=== PATIENT | female | born 1975 | race Caucasian/White ===

== ENCOUNTER 2020-12-02 22:44 | Emergency (ER) | payer MEDICAID, SELFPAY ==
[2020-12-02 22:59] VITALS: BP 147/87; PULSE 85; RESP 16; TEMP 36.3; O2SAT 97
--- NOTE | 2020-12-02 23:04 | ED.GENADUL_ITS ---
Discharge Plan Disposition Patient Disposition: HOME Condition: Stable Discharge Details Clinical Impression: Abdominal pain, UTI (urinary tract infection), Ovarian cyst, Acute hypokalemia Primary Care Provider: Lb Zepeda ED Provider: Pia Butler Home Meds and New Rx's Prescriptions: New cephalexin 500 mg capsule 500 mg PO BID Qty: 10 RF: 0 Continued medroxyprogesterone 150 MG/ML suspension 1 ml IM PER PROTOCOL RF: 0 ibuprofen 800 MG tablet 800 mg PO Q8H PRN (Reason: Pain) Qty: 15 RF: 0 Discharge Instructions Instructions: Urinary Tract Infection in Women (ED), Hypokalemia (ED), Abdominal Pain (ED) Additional Instructions: You have a urinary tract infection. Please encourage hydration. Please take the antibiotics as prescribed. Even if symptoms improve, please take the entire course. You have enlarged gallbladder and enhancing tissue of your cervical canal. Outpatient ultrasound has been ordered to further evaluate this. Please call int he morning to schedule, see attached form. This imaging will need to be completed with full bladder, please do not eat any food prior to study. Please avoid fatty foods as this may increase pain again if it was linked to your gallbladder. If you develop fevers/chills, inabillity to stay hdyrated, increased pain or other new/worsening symptoms please seek care urgently once again. Otherwise, I have asked our care managers to help you establish local primary care with follow up in the next week. Referrals: Lb Zepeda [Primary Care Provider] - Discharge Data Discharge Date/Time-TO BE ENTERED AT DEPARTURE: 12/03/20 02:34 Medical Decision Making Patient is a pleasant 44-year-old female presenting today for sudden onset abdominal pain. She reports the pain began approximately 1 hour prior to arrival. The pain initially began the left upper quadrant, she then experienced burning that ran down both sides of the abdomen. Pain is now migrated is maximal in the right lower quadrant. She denies any nausea or vomiting. Normal bowel movement today. Denies any change in urinary habits. No vaginal discharge. Reports that she does receive the Depo-Provera injection. Denies being sexually active recently. Denies any fevers or chills. No previous abdominal surgery. On exam, patient is pale and diaphoretic. She is clutching her abdomen. Hemodynamically stable. She does jump frequently when examining her abdomen but this does seem fairly diffuse with no focal area of tenderness. She indicates the right lower quadrant is maximal area of pain. Differential at this time includes appendicitis, ovarian torsion, ruptured ectopic , ruptured ovarian cyst, diverticulitis versus other. Plan for baseline labs and CT. FAST exam was performed by myself and no free fluid was appreciated. Labs reviewed. Patient does have a white count of 14.2. Potassium 2.9, will begin replenishing this here. No other significant electrolyte abnormalities. Troponin within normal limits. Lipase within normal limits. No abnormalities in LFTs. FINDINGS: Liver: Hepatomegaly. No mass. Gallbladder and bile ducts: Prominent gallbladder distention. Mild pericholecystic fat stranding. No calcified gallstones. Gallbladder wall top-normal in thickness. No biliary ductal dilatation. Pancreas: Normal. No ductal dilation. Spleen: Normal. No splenomegaly. Adrenal glands: Normal. No mass. Kidneys and ureters: Normal. No hydronephrosis. Stomach and bowel: Unremarkable. No obstruction. No mucosal thickening. Appendix: Normal appendix. Intraperitoneal space: No free intraperitoneal gas. Small pelvic ascites. Vasculature: Unremarkable. No abdominal aortic aneurysm. Lymph nodes: Unremarkable. No enlarged lymph nodes. Urinary bladder: Unremarkable as visualized. Reproductive: Retroverted uterus. Soft tissue attenuation distends endocervical canal up to 2 cm. Possible involuting right ovarian cyst measuring 1.2 cm, . Bones/joints: Unremarkable. No acute fracture. Soft tissues: Unremarkable. IMPRESSION: 1. Soft tissue attenuation distends endocervical canal. Further evaluation with transabdominal and transvaginal ultrasound recommended. 2. Possible involuting right ovarian cyst. 3. Prominent, distended gallbladder with pericholecystic fat stranding. Correlate clinically for the presence of acute cholecystitis and need for evaluation with ultrasound. 4. Hepatomegaly. 5. Retroverted uterus. Urinalysis concerning for elevated specific gravity, small amount of blood by nitrite, many bacteria. Discussed the findings with the patient. After the acetaminophen, patient's pain is now down to 1. She is no longer diaphoretic, is resting comfortably. Patient does have some mild discomfort over the right upper quadrant but negative Jerez sign. Patient reports that the pain was maximal in the lower aspect of the abdomen but that she had shooting pains that went down both sides and by enlarge, the pain migrated quickly in about her entire abdomen. Unclear if patient had change in vaginal discharge. She reports that she has been less sexually active than typical and was questioning if this may be causing her increased vaginal discharge. Will preform pelvic exam. Pelvic exam unremarkable. Normal-appearing cervix. No vaginal discharge. No cervical motion tenderness, negative chandelier sign. Patient feeling much improved after IV Tylenol. Patient is requesting discha rge. She remains hemodynamically stable. I am concerned with the findings on CT and would like to obtain an outpatient ultrasound of both her enlarged gallbladder as well as transvaginal ultrasound. She does report that she has had enlargement of her gallbladder historically and has had this evaluated and ultrasound, this was last completed when she . Strict return precautions were discussed. All of her questions and concerns were addressed and she is in agreement with this plan. HPI General Mode of arrival: ambulatory . Date/Time Provider Initiated Documentation: 12/02/20 23:04 . Limitations to Documentation: no limitations . Information obtained by: patient and RN notes reviewed . History of Present Illness 44 year old F presents to the emergency department with the chief complaint of lower abdominal pain, described as severe, with intensity rated at 10. Quality is described as stabbing, and is localized to the abdomen. Patient reports no radiation. Patient started experiencing this hour(s) (1) and it has been constant (has migrated throughout abdomen). No relieving factors improve symptom(s), No exacerbating factors reported . Patient notes denies chest pain, cough, fever/chills, loss of appetite, nausea/vomiting and shortness of breath. Patient did receive the following treatments prior to arrival, NSAID Related Data Home Medications Medication Instructions Recorded Confirmed medroxyprogesterone 1 ml IM PER PROTOCOL 10/18/14 12/04/20 ibuprofen 800 mg PO Q8H PRN #15 tab 03/04/17 12/04/20 cephalexin 500 mg PO BID #10 cap 12/03/20 12/04/20 Previous Rx's Medication Instructions Recorded ibuprofen 800 mg PO Q8H PRN #15 tab 03/04/17 cephalexin 500 mg PO BID #10 cap 12/03/20 Allergies Allergy/AdvReac Type Severity Reaction Status Date / Time apple Allergy Unverified 12/02/20 23:36 diphenhydramine Allergy Unverified 12/02/20 23:03 [From Benadryl] pollen extracts Allergy Unverified 12/02/20 23:03 warfarin sodium Allergy Unverified 12/02/20 23:03 [From Coumadin] General Stated Complaint: Abd Prob BEBA: 3 Review of Systems Constitutional Constitutional: Reports as per HPI, Denies chills, Denies fatigue, Denies fever(s) and Denies headache(s) ENT Ears, Nose, Mouth, and Throat: Denies headache(s) Cardiovascular Cardiovascular: Reports as per HPI, Denies chest pain and Denies dyspnea Respiratory Respiratory: Reports as per HPI, Denies cough and Denies dyspnea Gastrointestinal Gastrointestinal: Reports as per HPI Musculoskeletal Musculoskeletal: Reports as per HPI and Denies back pain Integumentary/Breasts Skin/Breast: Reports as per HPI and Denies rash Neurologic Neurologic: Reports as per HPI and Denies headache(s) Endocrine Endocrine: Denies fatigue PFSH Medical History Asthma Vertigo Social History Smoking/Tobacco Use Status: Current every day Tobacco Type: cigarettes Smoking risk assessment performed?: Yes Alcohol Intake: never Drug use: Never Do you feel safe at home: Yes Do you feel safe in your relationship?: Yes Exam Const General: cooperative, uncomfortable, no acute distress, well developed, diaphoretic (pale and diaphoretic) and ill appearing acutely Nutritional Appearance: well nourished and overweight Orientation: alert and awake HENMT Head: normal to inspection Mouth: moist mucous membranes Resp Effort & Inspection: normal respiratory effort, able to speak in complete sentences and no respiratory distress Auscultation: clear to auscultation bilaterally, no rales, no rhonchi and no wheezes Cardio Rate: regular rate Rhythm: regular rhythm Heart Sounds: S1 normal and S2 normal GI Inspection: normal to inspection, no abdominal wall ecchymosis, no edema and non-distended Palpation: soft, no hepatosplenomegaly, not firm, guarding in the RLQ, no hepatomegaly, no hernias, no masses, no pulsatile masses, not rigid and tender (fairly diffuse pain, worse on LUQ, RLQ LLQ) Percussion: normal to percussion Auscultation: normal bowel sounds Back/Spine/Pelvis Back: no CVA tenderness Skin General skin exam: no rashes or lesions noted Trauma: no lacerations or abrasions Neuro General: patient alert and patient awake Cognition: normal cognition Speech: speech normal Gait: normal gait Extrem General: normal to inspection, capillary refill normal, no pedal edema, no calf tenderness and other (2+ distal pulses) Psych Appearance: grossly normal and well kempt Mental Status: mental status grossly normal Speech and Movement: speech and movement normal Course Vital Signs Vital signs: Vital Signs Temperature 36.3 C L 12/02/20 22:59 Pulse 85 12/02/20 22:59 Respiratory Rate 16 12/02/20 22:59 Blood Pressure 147/87 H 12/02/20 22:59 Pulse Oximetry 97 12/02/20 22:59 Temperature 36.3 C L 12/02/20 22:59 Temperature Source Skin 12/02/20 22:59 Pulse 85 12/02/20 22:59 Respiratory Rate 16 12/02/20 22:59 Blood Pressure 147/87 H 12/02/20 22:59 Pulse Oximetry 97 12/02/20 22:59 Pain Level 10 12/02/20 22:59
--- NOTE | 2020-12-02 23:15 | DI.CT_ITS ---
Exam(s) CT ABDOMEN PELVIS W EXAM: CT ABDOMEN PELVIS W CLINICAL HISTORY: severe RLQ pain TECHNIQUE: Imaging Protocol: Axial computed tomography images with coronal and sagittal reformatted images were created and reviewed CONTRAST MATERIAL: Intravenous: Omnipaque 350 Contrast volume:90 mL Oral: No COMPARISON: No exams were available for comparison FINDINGS: ABDOMEN: Lung Bases: Mild infiltrates in the lung bases. This may represent atelectasis or pneumonia. Please correlate clinically. Liver: Normal density. No measurable mass. The liver measures 22 cm in length. Portal, Superior Mesenteric, and Splenic Veins: Unremarkable. Gallbladder and Biliary Tract: No cholelithiasis. There is gallbladder wall thickening. Mild inflam mation is seen around the gallbladder. There is no biliary ductal dilatation. Pancreas: Normal density, no abnormal calcifications or inflammatory process. Spleen: Normal. Adrenals: No masses seen. Kidneys: Normal size, contour and axis. No radiodense stones or obstructive uropathy. No masses seen. Abdominal Aorta: Abdominal portion non-dilated. [id number] atherosclerosis. Bowel: No obstruction or bowel wall thickening. No evidence of appendicitis. There is a question of mild thickening of the wall of the hepatic flexure adjacent to the inflamed gallbladder. This may be colitis secondary to the gallbladder inflammation. Peritoneal Cavity: No collection or mesenteric inflammatory response. Small amount of free fluid in the pelvis. No free air. Lymph Nodes: Within normal limits. Bones: Within normal limits for the patient's age. Soft Tissues: Unremarkable. PELVIS: Bladder: The urinary bladder is incompletely distended but grossly unremarkable. Reproductive Organs: There is a question of some heterogeneity of the cervix with a 2 cm area of decr eased attenuation centrally. Lymph Nodes: Within normal limits. Bones: Within normal limits for the patient's age. IMPRESSION: 1. Distended gallbladder with gallbladder wall thickening and pericholecystic stranding. This may re flect acute cholecystitis. Gallbladder ultrasound may be considered for further evaluation. 2. Question of an area of decreased attenuation in the central cervix. Pelvic ultrasound should be c onsidered for further evaluation. 3. Hepatomegaly. RADIATION DOSE DELIVERED: 951.36mGy.cm Total DLP DATA REPOSITORY: All CT scans at this facility are submitted to the National Radiology Data Registry (NRDR) Dose Index Registry (DIR) with the [employer] (ACR). RADIATION OPTIMIZATION: All CT scans at this facility use at least one of these dose optimization te chniques: automated exposure control; mA and/or kV adjustment per patient size (includes targeted exa ms where dose is matched to clinical indication); or iterative reconstruction.
[2020-12-02 23:21] LABS: Bilirubin Small (Negative); Blood Small (Negative); Clarity Sl Cloudy (Clear); Glucose Negative (Negative); Ketones Trace mg/dL (Negative); Leukocyte Esterase Negative (Negative); Nitrite Positive (Negative); Specific Gravity >= 1.030 (1.005-1.025)
[2020-12-02 23:26] LABS: Bacteria Many HPF (Negative); C & S Indicated? Yes; Casts Negative LPF (Negative); Crystals Negative HPF (Negative); Epithelial Cells Few HPF (Negative); Mucus Trace (Negative)
[2020-12-02 23:30] LABS: Abs Immature Grans 0.05 10^3/uL (0.0-0.06); Absolute Eosinophil Count 0.11 10^3/uL (0.0-0.7); Absolute Monocyte Count 1.39 10^3/uL (0.1-0.8); Basophils % 0.7; Eosinophils % 0.8; HCT 42.6 % (36.0-46.0); HGB 14.4 g/dL (11.2-15.7); Immature Grans % 0.4; Lymphocytes % 17.6; MCH 31.2 pg (27.0-33.0); MCHC 33.8 % (32.0-36.0); MCV 92.2 fL (80-95); MPV 10.9 fL (8.0-11.0); Monocytes % 9.8; Neutrophils % 70.7; Nucleated RBC 0 %; Platelet Count 395 10^3/uL (130-400); RBC 4.62 10^6/uL (3.93-5.22); RDW 12.9 % (11.7-14.6); RDW-SD 43.6 fL; WBC 14.21 10^3/uL (4.4-10.8)
[2020-12-02 23:34] LABS: Absolute Neutrophil Count 10.05 10^3/uL (1.2-6.7)
[2020-12-02] MEDS: ACETAMINOPHEN 1,000 MG/100 ML BTL 400 MG IVPB (23:34)
[2020-12-02] MEDS: Omnipaque 350 MG/ML 100 ML BTL IJ (23:55)
[2020-12-02 23:56] LABS: ALT 23 U/L (14-59); AST 18 U/L (15-37); Albumin 2.8 g/dL (3.4-5.0); Alkaline Phosphatase 115 U/L (46-116); Anion Gap 9.7 mmol/L (3-11); BUN 10 mg/dL (7-18); Bilirubin, Total 0.4 mg/dL (0.2-1.0); CO2 29.3 mmol/L (21.0-32.0); Calcium 9.3 mg/dL (8.5-10.1); Chloride 102 mmol/L (98-107); Glucose 136 mg/dL (74-106); Lipase 39 U/L (73-393); Magnesium 2.1 mg/dL (1.8-2.4); Sodium 141 mmol/L (136-145); Total Protein 8.2 g/dL (6.4-8.2)
[2020-12-02 23:58] LABS: Potassium 2.9 mmol/L (3.5-5.1); Troponin I < 0.05 ng/mL (<0.06)
[2020-12-03] MEDS: Normal Saline - Diluent 50 ML VIAL IV (00:01)
[2020-12-03] MEDS: Normal Saline Flush 10 ML SYR IVP (00:02)
[2020-12-03] MEDS: Lactated Ringers 1,000 ML 1000 ML IV (00:03)
[2020-12-03 00:41] VITALS: BP 113/55; PULSE 84; RESP 16; O2SAT 96
--- NOTE | 2020-12-03 00:54 | DI.VRAD_ITS ---
PROCEDURE INFORMATION: Exam: CT Abdomen And Pelvis With Contrast Exam date and time: 12/02/2020 12:04 AM Age: 44 years old Clinical indication: Localized; Right; Patient HX: Upper abdominal pain moving down into rlq, severe rlq pain TECHNIQUE: Imaging protocol: Computed tomography of the abdomen and pelvis with contrast. Radiation optimization: All CT scans at this facility use at least one of these dose optimization techniques: automated exposure control; mA and/or kV adjustment per patient size (includes targeted exams where dose is matched to clinical indication); or iterative reconstruction. Contrast material: OMNIPAQUE 350; Contrast volume: 90 ml; Contrast route: INTRAVENOUS (IV); COMPARISON: No relevant prior studies available. FINDINGS: Liver: Hepatomegaly. No mass. Gallbladder and bile ducts: Prominent gallbladder distention. Mild pericholecystic fat stranding. No calcified gallstones. Gallbladder wall top-normal in thickness. No biliary ductal dilatation. Pancreas: Normal. No ductal dilation. Spleen: Normal. No splenomegaly. Adrenal glands: Normal. No mass. Kidneys and ureters: Normal. No hydronephrosis. Stomach and bowel: Unremarkable. No obstruction. No mucosal thickening. Appendix: Normal appendix. Intraperitoneal space: No free intraperitoneal gas. Small pelvic ascites. Vasculature: Unremarkable. No abdominal aortic aneurysm. Lymph nodes: Unremarkable. No enlarged lymph nodes. Urinary bladder: Unremarkable as visualized. Reproductive: Retroverted uterus. Soft tissue attenuation distends endocervical canal up to 2 cm. Possible involuting right ovarian cyst measuring 1.2 cm, . Bones/joints: Unremarkable. No acute fracture. Soft tissues: Unremarkable. IMPRESSION: 1. Soft tissue attenuation distends endocervical canal. Further evaluation with transabdominal and transvaginal ultrasound recommended. 2. Possible involuting right ovarian cyst. 3. Prominent, distended gallbladder with pericholecystic fat stranding. Correlate clinically for the presence of acute cholecystitis and need for evaluation with ultrasound. 4. Hepatomegaly. 5. Retroverted uterus. Dictated and Authenticated by: Hernandez Zarate MD. Ordering:KENIA Palacio MD
[2020-12-03] MEDS: Potassium Chloride 20 MEQ TABCR 40 MEQ PO (01:00)
[2020-12-03] MEDS: POTASSIUM CHLORIDE 20 MEQ/100 ML BAG 50 MEQ IVPB (01:00)
[2020-12-03 02:23] VITALS: BP 145/68; PULSE 84; RESP 16; O2SAT 99
[2020-12-03] MEDS: Cephalexin 500 MG CAP 1000 MG PO (02:23)
--- NOTE | 2020-12-03 02:30 | NUR.NOTE ---
Referral to Care Management to establish primary care within a week for abd pain, abnormal ct scan.Nursing Note:
== END 2020-12-03 02:34 | disposition home or self-care (01) ==
PROVIDERS: Emergency Provider Physician Assistant; PCP Internal Medicine
DX: N39.0 Urinary tract infection, site not specified (principal); B96.1 Klebsiella pneumoniae [K. pneumoniae] as the cause of diseases classified elsewhere; R10.31 Right lower quadrant pain; E87.6 Hypokalemia; N83.201 Unspecified ovarian cyst, right side; R93.2 Abnormal findings on diagnostic imaging of liver and biliary tract; R93.5 Abnormal findings on diagnostic imaging of other abdominal regions, including retroperitoneum
CPT/HCPCS: 36415; 80053; 81025; 83690; 87077; 96361; 96365; 96367; 99285; 74177; 81003; 81015; 83735; 84484; 85025; 87086; 87186; 99284; J0131; J3480; J3490

== ENCOUNTER 2020-12-04 01:14 | Outpatient (CLI) | payer MEDICAID, SELFPAY ==
--- NOTE | 2020-12-04 | DI.US_ITS ---
Exam(s) US ABD PELV TRANSVAG NON-OB EXAM: US ABD PELV TRANSVAG NON-OB CLINICAL HISTORY: ENLARGED GB, STRANDING; SOFT TISS ATTENUATION MID ENDOCERVICAL CANAL TECHNIQUE: Ultrasound of the abdomen and pelvic was performed using standard protocol. A limited a bdominal ultrasound was performed. COMPARISON: The examination was read in conjunction with the CT scan of the abdomen and pelvis perfo rmed the same day. FINDINGS: LIVER: The liver measures 19 cm long. There is hepatopetal flow through the portal vein. GALLBLADDER: Cholelithiasis. There is no gallbladder wall thickening. The gallbladder measures 5 cm in diameter. No pericholecystic fluid identified. Right kidney: Normal in size. No evidence of renal calculi. No evidence of hydronephrosis. No renal mass or cyst identified. BILIARY SYSTEM: Common bile duct measures < 7 mm. No intrahepatic biliary ductal dilation. PANCREAS: Normal where visualized. UTERUS: Position: Anteverted. Size: 5.5 long by 2.5 AP by 4.1 transverse cm Endometrium: 0.3 cm. Normal for patient's menstrual status. Myometrium: Unremarkable. Cervix: Unremarkable. OVARIES: Right: Not visualized on this examination. Left: 1.5 x 1.3 cm Cyst or mass: Small follicular cysts are present. DOPPLER: Color: Symmetric and uniform flow to the left ovary. No hyperemia. Duplex: Normal left ovarian arterial waveform is visualized. CUL-DE-SAC: Free fluid: There is complex fluid seen in both adnexa consistent with the complex fluid seen on the CT scan of the abdomen and pelvis. The CT scan showed pneumoperitoneum with a small to moderate amou nt of abdominal pelvic free fluid consistent with a perforated viscus. There appears to be a defect in the wall of the lesser curvature of the stomach on the CT scan examination from 12/04/2020. IMPRESSION: 1. Please refer to the CT scan of the abdomen and pelvis performed the same day for complete details. 2. Normal-appearing uterus with endometrial stripe within normal limits. 3. Nonvisualization of the right ovary. Unremarkable left ovary. 4. Cholelithiasis. 5. Results of this exam have been verbally communicated with provider. DATA REPOSITORY:
== END 2020-12-04 01:34 ==
PROVIDERS: PCP Internal Medicine; Visit Provider Physician Assistant
DX: K80.20 Calculus of gallbladder without cholecystitis without obstruction (principal); R93.5 Abnormal findings on diagnostic imaging of other abdominal regions, including retroperitoneum; R19.8 Other specified symptoms and signs involving the digestive system and abdomen
CPT/HCPCS: 76700; 76830; 76856

== ENCOUNTER 2020-12-04 09:56 | Inpatient (IN) | payer MEDICAID, SELFPAY ==
[2020-12-04] VITALS (82 sets, daily range): BP systolic 136–180; BP diastolic 65–132; PULSE 87–120; RESP 15–43; TEMP 36.3–37.1; O2SAT 92–98; BMI 26.6
--- NOTE | 2020-12-04 10:30 | DI.CT_ITS ---
Exam(s) CT ABDOMEN PELVIS W EXAM: CT ABDOMEN PELVIS W CLINICAL HISTORY: Abd pain, Eval gallbladder and ovarian cyst TECHNIQUE: Imaging Protocol: Axial computed tomography images with coronal and sagittal reformatted images were created and reviewed CONTRAST MATERIAL: Intravenous: Omnipaque 350 Contrast volume:100 mL Oral: Yes COMPARISON: CT CT ABDOMEN PELVIS W from 12/02/2020 FINDINGS: ABDOMEN: Lung Bases: Bilateral basilar infiltrates are seen. There may be a small left pleural effusion. Liver: Normal density. No measurable mass. Portal, Superior Mesenteric, and Splenic Veins: Unremarkable. Gallbladder and Biliary Tract: Gallbladder is distended no stones are seen on the CT examination. Th ere is no biliary ductal dilatation. Please refer to the ultrasound performed the same day. Pancreas: Normal density, no abnormal calcifications or inflammatory process. Spleen: Normal. Adrenals: No masses seen. Kidneys: Normal size, contour and axis. No radiodense stones or obstructive uropathy. No masses seen. Abdominal Aorta: Abdominal portion non-dilated. Mild to moderate atherosclerosis. Bowel: No evidence of bowel obstruction. There does appear to be mild thickening of the wall of loop s of small bowel in the pelvis. No evidence of appendicitis. Peritoneal Cavity: There is free air within the abdomen. Findings are most suspicious for perforated viscus. There is a moderate amount of free fluid in the upper abdomen and pelvis. The fluid in the pelvis has Hounsfield units of 6. Fluid in the upper abdomen has a higher Hounsfield unit. The flu id adjacent to the left lobe of the liver is isodense to the oral contrast. This may represent passa ge of the oral contrast and through the perforated viscus. Due to its location gastric perforation ( example: Ulcer) should be considered. Lymph Nodes: Within normal limits. Bones: Within normal limits for the patient's age. Soft Tissues: Unremarkable. PELVIS: Bladder: Symmetric distention, no gross wall thickening. Reproductive Organs: Unremarkable as visualized. Lymph Nodes: Within normal limits. Bones: Within normal limits for the patient's age. IMPRESSION: 1. Development of pneumoperitoneum suggestive of a perforated viscus. Primary concern is for gastric perforation which can happen occur from an ulcer. There does appear to be a defect in the lesser cu rvature of the stomach with associated thickening of the wall. The finding would be consistent with a perforated ulcer. Neoplasm cannot be excluded. 2. Small to moderate amount of abdominal pelvic free fluid. The fluid is of higher density in the up per abdomen particularly adjacent to the stomach and may reflect the oral contrast's passage through the gastric wall defect. 3. Gallbladder distension with mild stranding around the gallbladder. This may represent acute tracy cystitis. 4. Mild apparent wall thickening in loops of small bowel in the pelvis. This may represent enteritis . This may be secondary to the gastric perforation. 5. Bilateral basilar infiltrates and question of a small left pleural effusion. 6. Results of this exam have been verbally communicated with provider. RADIATION DOSE DELIVERED: 894.13mGy.cm Total DLP DATA REPOSITORY: All CT scans at this facility are submitted to the National Radiology Data Registry (NRDR) Dose Index Registry (DIR) with the [employer] (ACR). RADIATION OPTIMIZATION: All CT scans at this facility use at least one of these dose optimization te chniques: automated exposure control; mA and/or kV adjustment per patient size (includes targeted exa ms where dose is matched to clinical indication); or iterative reconstruction.
--- NOTE | 2020-12-04 10:30 | ED.GENADUL_ITS ---
Discharge Plan Disposition Patient Disposition: [facility] INPATIENT Condition: Serious Discharge Details Clinical Impression: Perforated abdominal viscus, Acute abdomen Primary Care Provider: Lb Zepeda ED Provider: Stefany Duenas Home Meds and New Rx's Prescriptions: No Action medroxyprogesterone 150 MG/ML suspension 1 ml IM PER PROTOCOL RF: 0 ibuprofen 800 MG tablet 800 mg PO Q8H PRN (Reason: Pain) Qty: 15 RF: 0 cephalexin 500 mg capsule 500 mg PO BID Qty: 10 RF: 0 Medical Decision Making 44-year-old female presents to the ER for ultrasound results. Patient was seen here approximately 48 hours ago had a [address] abdomen pelvis which showed prominent distended gallbladder with pericholecystic fat stranding questionable for cholecystitis. She was also diagnosed with a urinary tract infection at that time. Patient was placed on cephalexin which she reports she has been taking. She was sent here to further evaluate the gallbladder for the ultrasound. She did have the ultrasound this morning that radiology is recommending CT once again with oral and IV contrast. Patient states that she has had right upper quadrant abdominal pain x1 week which is intermittent. She has not had a bowel movement in the last 5 days. She denies any vomiting. She is mildly tachycardic at 108-117 upon arrival. Call received by my colleague Dr. Atkins from radiologist regarding ultrasound. Radiologist at this time does recommend repeat CT with oral and IV contrast. Patient here for ultrasound result was seen here yesterday. 1235: Radiologist Dr. Moffett here in the department speak with me regarding patient CT result that she does have some free air noted in the anterior abdominal cavity, some fluid around her spleen questionable perforation of the stomach versus from somewhere else, Call made to Dr. Grijalva who is on-call for general surgery discussed patient case and details he was able to personally view the CT. He does agree to come evaluate patient in the department. Exam(s) CT ABDOMEN PELVIS W EXAM: CT ABDOMEN PELVIS W CLINICAL HISTORY: Abd pain, Eval gallbladder and ovarian cyst TECHNIQUE: Imaging Protocol: Axial computed tomography images with coronal and sagittal reformatted images were created and reviewed CONTRAST MATERIAL: Intravenous: Omnipaque 350 Contrast volume:100 mL Oral: Yes COMPARISON: CT CT ABDOMEN PELVIS W from 12/02/2020 FINDINGS: ABDOMEN: Lung Bases: Bilateral basilar infiltrates are seen. There may be a small left pleural effusion. Liver: Normal density. No measurable mass. Portal, Superior Mesenteric, and Splenic Veins: Unremarkable. Gallbladder and Biliary Tract: Gallbladder is distended no stones are seen on the CT examination. There is no biliary ductal dilatation. Please refer to the ultrasound performed the same day. Pancreas: Normal density, no abnormal calcifications or inflammatory process. Spleen: Normal. Adrenals: No masses seen. Kidneys: Normal size, contour and axis. No radiodense stones or obstructive uropathy. No masses seen. Abdominal Aorta: Abdominal portion non-dilated. Mild to moderate atherosclerosis. Bowel: No evidence of bowel obstruction. There does appear to be mild thickening of the wall of loops of small bowel in the pelvis. No evidence of appendicitis. Peritoneal Cavity: There is free air within the abdomen. Findings are most suspicious for perforated viscus. There is a moderate amount of free fluid in the upper abdomen and pelvis. The fluid in the pelvis has Hounsfield units of 6. Fluid in the upper abdomen has a higher Hounsfield unit. The fluid adjacent to the left lobe of the liver is isodense to the oral contrast. This may represent passage of the oral contrast and through the perforated viscus. Due to its location gastric perforation (example: Ulcer) should be considered. Lymph Nodes: Within normal limits. Bones: Within normal limits for the patient's age. Soft Tissues: Unremarkable. PELVIS: Bladder: Symmetric distention, no gross wall thickening. Reproductive Organs: Unremarkable as visualized. Lymph Nodes: Within normal limits. Bones: Within normal limits for the patient's age. IMPRESSION: 1. Development of pneumoperitoneum suggestive of a perforated viscus. Primary concern is for gastric perforation which can happen occur from an ulcer. There does appear to be a defect in the lesser curvature of the stomach with associated thickening of the wall. The finding would be consistent with a perforated ulcer. Neoplasm cannot be excluded. 2. Small to moderate amount of abdominal pelvic free fluid. The fluid is of higher density in the upper abdomen particularly adjacent to the stomach and may reflect the oral contrast's passage through the gastric wall defect. 3. Gallbladder distension with mild stranding around the gallbladder. This may represent acute cholecystitis. 4. Mild apparent wall thickening in loops of small bowel in the pelvis. This may represent enteritis. This may be secondary to the gastric perforation. 5. Bilateral basilar infiltrates and question of a small left pleural effusion. 6. Results of this exam have been verbally communicated with provider. Spoke again with Dr. Grijalva who agrees to take patient to the OR for emergent diagnostic abdominal laparotomy possible open he does recommend Zosyn and additional antibiotic to cover for fungal, Zosyn order 4.5 g IV piggyback ordered. Dr. Grijalva general surgery here at bedside for patient evaluation. Plan to send patient to the OR. Anesthesia here at BS for patient evaluation. HPI General Mode of arrival: wheelchair . Date/Time Provider Initiated Documentation: 12/04/20 09:58 . Limitations to Documentation: no limitations . Information obtained by: patient . HPI Narrative: 44-year-old female presents to the ER for ultrasound results. Patient was seen here approximately [address] abdomen pelvis which showed prominent distended gallbladder with pericholecystic fat stranding questionable for cholecystitis. She was also diagnosed with a urinary tract infection at that time. Patient was placed on cephalexin which she reports she has been taking. She was sent here to further evaluate the gallbladder for the ultrasound. She did have the ultrasound this morning that radiology is recommending CT once again with oral and IV contrast. Patient states that she has had right upper quadrant abdominal pain x1 week whi ch is intermittent. She has not had a bowel movement in the last 5 days. She denies any vomiting. She is mildly tachycardic at 108-117 upon arrival. Related Data Home Medications Medication Instructions Recorded Confirmed medroxyprogesterone 1 ml IM PER PROTOCOL 10/18/14 12/04/20 ibuprofen 800 mg PO Q8H PRN #15 tab 03/04/17 12/04/20 cephalexin 500 mg PO BID #10 cap 12/03/20 12/04/20 Previous Rx's Medication Instructions Recorded ibuprofen 800 mg PO Q8H PRN #15 tab 03/04/17 cephalexin 500 mg PO BID #10 cap 12/03/20 Allergies Allergy/AdvReac Type Severity Reaction Status Date / Time apple Allergy Unverified 12/02/20 23:36 diphenhydramine Allergy Unverified 12/02/20 23:03 [From Benadryl] pollen extracts Allergy Unverified 12/02/20 23:03 warfarin sodium Allergy Unverified 12/02/20 23:03 [From Coumadin] General Stated Complaint: Recheck BEBA: 5 Review of Systems All systems reviewed & are unremarkable except as noted in HPI and below Gastrointestinal Gastrointestinal: Reports abdominal pain, Reports bloating, Reports change in bowel habits, Reports constipation, Denies diarrhea, Denies nausea and Denies vomiting [facility] Medical History Asthma Vertigo Social History Smoking/Tobacco Use Status: Current every day Tobacco Type: cigarettes Smoking risk assessment performed?: Yes Alcohol Intake: never Drug use: Never Do you feel safe at home: Yes Do you feel safe in your relationship?: Yes Exam Narrative Exam Narrative: Constitutional: Alert and oriented x3. Appears stated age. Normal body habitus. Head: Normocephalic, no trauma. Eyes: Pupils PERRLA, Red reflex noted, EOM's intact. Eyelids symmetrical without lesions, discharge, or swelling. ENT: Bilateral TM's WNL, External ear normal to inspection, no mastoid TTP, swelling, or erythema, Nasal turbinates WNL, no nasal discharge. Normal dentition, Posterior pharynx WNL, no exudate. Chest: Tachycardic, Normal S1, S2, distal pulses intact. Resp: Lungs clear to auscultation bilaterally, no wheezes, rales, or rhonchi. Abdomen: Mildly distended, right upper quadrant tenderness with palpation. Musculoskeletal: Normal gait, 5/5 strength to all four extremities. Skin: No suspicious rashes or lesions. Capillary refill less than 2 sec. pale Neurologic: Cranial nerves II-XII intact. Alert and oriented x 3. DTR's intact. Hematologic/Lymphatic: No ecchymosis, no lymphadenopathy. Course Vital Signs Vital signs: Vital Signs Temperature 37.1 C 12/04/20 10:13 Pulse 108 H 12/04/20 10:13 Respiratory Rate 15 12/04/20 10:13 Blood Pressure 136/75 12/04/20 10:13 Pulse Oximetry 98 12/04/20 10:13 Temperature 37.1 C 12/04/20 10:13 Temperature Source Temporal Artery Scan 12/04/20 10:13 Pulse 108 H 12/04/20 10:13 Respiratory Rate 15 12/04/20 10:13 Respiratory Effort 12/04/20 10:15 Blood Pressure 136/75 12/04/20 10:13 Blood Pressure Position Sitting 12/04/20 10:13 Pulse Oximetry 98 12/04/20 10:13 Oxygen Delivery Method Room Air 12/04/20 10:13 Oxygen Flow Rate 0 12/04/20 10:13
[2020-12-04 10:48] LABS: Abs Immature Grans 0.15 10^3/uL (0.0-0.06); HCT 47.6 % (36.0-46.0); HGB 15.9 g/dL (11.2-15.7); MCHC 33.4 % (32.0-36.0); MCV 92.8 fL (80-95); MPV 11.3 fL (8.0-11.0); Platelet Count 431 10^3/uL (130-400); RBC 5.13 10^6/uL (3.93-5.22); RDW 13.2 % (11.7-14.6); WBC 21.46 10^3/uL (4.4-10.8)
[2020-12-04 10:55] LABS: Lactate 3.1 mmol/L (0.6-1.4)
[2020-12-04 11:08] LABS: ALT 26 U/L (14-59); AST 25 U/L (15-37); Absolute Lymphocyte Count 0.64 10^3/uL (1.2-3.4); Absolute Monocyte Count 0.86 10^3/uL (0.1-0.8); Absolute Neutrophil Count 19.96 10^3/uL (1.2-6.7); Albumin 2.4 g/dL (3.4-5.0); Alkaline Phosphatase 104 U/L (46-116); Anion Gap 12.8 mmol/L (3-11); BUN 22 mg/dL (7-18); Bands % 27; Bilirubin, Total 0.5 mg/dL (0.2-1.0); CO2 25.2 mmol/L (21.0-32.0); CREATININE 1.5 mg/dL (0.55-1.02); Calcium 11.2 mg/dL (8.5-10.1); Chloride 99 mmol/L (98-107); Diff Comment Manual Differential; Estimated GFR 37.72 (mL/min/1.73m2); Glucose 144 mg/dL (74-106); Potassium 4.2 mmol/L (3.5-5.1); Sodium 137 mmol/L (136-145); Total Protein 8.2 g/dL (6.4-8.2)
[2020-12-04 11:09] LABS: RBC Morphology Normal
[2020-12-04 11:39] LABS: Lipase 40 U/L (73-393)
[2020-12-04 11:39] LABS: Bilirubin Moderate (Negative); Blood Trace-lysed (Negative); Clarity Clear (Clear); Glucose Negative (Negative); Ketones Negative (Negative); Leukocyte Esterase Negative (Negative); Nitrite Negative (Negative); Specific Gravity >= 1.030 (1.005-1.025); Urobilinogen 0.2 EU/dL (Up TO 0.2); pH 5.5 (5-8)
[2020-12-04] MEDS: Normal Saline 1,000 ML 1000 ML IV ×2 (11:41→12:42)
[2020-12-04 11:45] LABS: Epithelial Cells Moderate HPF (Negative); RBC 0-2 HPF (0-2); WBC 0-2 HPF (0-5)
[2020-12-04 11:46] LABS: Bacteria Negative HPF (Negative); C & S Indicated? No; Crystals Few Amorphous HPF (Negative); Mucus Moderate (Negative)
[2020-12-04] MEDS: Omnipaque 350 MG/ML 100 ML BTL IV (12:14)
[2020-12-04] MEDS: Normal Saline - Diluent 50 ML VIAL IV (12:14)
[2020-12-04 13:32] LABS: Source Nasal/Nares
--- NOTE | 2020-12-04 13:35 | W.ANESPRE ---
General Info Date of Service Date Performed: 12/04/20 Height: 5 ft 9 in Weight: 81.647 kg Body Mass Index (BMI): 26.6 Surgical Procedure: Operation Date: 12/04/20 13:50 Proposed Procedures Side Surgeon p Exploratory Laparoscopy Flakito Grijalva DO s Exploratory Laparotomy Flakito Grijalva DO Meds Allergies and Home Medications Allergies Allergy/AdvReac Type Severity Reaction Status Date / Time apple Allergy Unverified 12/02/20 23:36 diphenhydramine Allergy Unverified 12/02/20 23:03 [From Benadryl] pollen extracts Allergy Unverified 12/02/20 23:03 warfarin sodium Allergy Unverified 12/02/20 23:03 [From Coumadin] Home Medication Medication Instructions Recorded medroxyprogesterone 1 ml IM PER PROTOCOL 10/18/14 ibuprofen 800 mg PO Q8H PRN #15 tab 03/04/17 cephalexin 500 mg PO BID #10 cap 12/03/20 Current Visit Medications: Current Medications Generic Name Dose Route Start Last Admin Trade Name Freq PRN Reason Stop Dose Admin Sodium Chloride 500 mls @ 0 mls/hr 12/04/20 10:32 Saline 500ml Bag IV PRN PRN As Directed Sodium Chloride 1,000 mls @ 1,000 mls/hr 12/04/20 12:37 12/04/20 12:42 Saline 1000ml Bag IV 12/04/20 13:36 1,000 mls/hr BOLUS ONE Administration Piperacillin Sod/Tazobactam 100 mls @ 200 mls/hr 12/04/20 13:08 Sod 4.5 gm/ Sodium Chloride IVPB 12/04/20 13:37 NOW ONE Protocol Metronidazole 500 mg in 100 mls @ 100 mls/hr 12/04/20 13:09 Flagyl IVPB 12/04/20 14:08 NOW ONE IV Miscellaneous Supplies 1 each 12/04/20 10:45 Iv Access IV DIRECTED AKHIL Iohexol 100 ml 12/04/20 12:15 12/04/20 12:14 Omnipaque 350 Mg/Ml 100 Ml Btl IV 01/03/21 23:59 100 ml DIRECTED AKHIL Administration Sodium Chloride 0 ml 12/04/20 10:32 Normal Saline Flush 10 Ml Syr IVP PRN PRN Sodium Chloride 50 ml 12/04/20 12:15 12/04/20 12:14 Normal Saline - Diluent 50 Ml Vial IV 50 ml .FOR DI USE AKHIL Administration PFSH Active Problems Active Problems: Problem Status Onset Code Abdominal pain R10.9 UTI (urinary tract infection) N39.0 Ovarian cyst N83.209 Acute hypokalemia E87.6 Perforated abdominal viscus R19.8 Acute abdomen R10.0 Medical History Medical History Asthma Vertigo Tobacco Smoking/Tobacco Use Status: Current every day Tobacco Type: cigarettes Alcohol Alcohol Intake: never Substance Use Substance use: Never Vital Signs and Lab Results Vital Signs Most Recent Vital Signs in EMR: Most Recent Vital Signs Temp Pulse Resp BP Pulse Ox 36.8 C 113 H 26 H 164/87 H 95 12/04/20 12:02 12/04/20 12:40 12/04/20 12:50 12/04/20 12:40 12/04/20 12:50 Lab Results Result Diagrams: 12/04/20 10:40 12/04/20 10:40 Blood Type / Crossmatch: No Data to Display Complete Blood Count: White Blood Count 21.46 10^3/uL (4.4-10.8) H 12/04/20 10:40 12/04/20 Red Blood Count 5.13 10^6/uL (3.93-5.22) 12/04/20 10:40 12/04/20 Hemoglobin 15.9 g/dL (11.2-15.7) H 12/04/20 10:40 12/04/20 Hematocrit 47.6 % (36.0-46.0) H 12/04/20 10:40 12/04/20 Platelet Count 431 10^3/uL (130-400) H 12/04/20 10:40 12/04/20 Complete Metabolic Panel: Sodium Level 137 mmol/L (136-145) 12/04/20 10:40 12/04/20 Potassium Level 4.2 mmol/L (3.5-5.1) 12/04/20 10:40 12/04/20 Chloride Level 99 mmol/L (98-107) 12/04/20 10:40 12/04/20 Carbon Dioxide Level 25.2 mmol/L (21.0-32.0) 12/04/20 10:40 12/04/20 Blood Urea Nitrogen 22 mg/dL (7-18) H 12/04/20 10:40 12/04/20 Creatinine 1.5 mg/dL (0.55-1.02) H 12/04/20 10:40 12/04/20 Magnesium Level 2.0 mg/dL (1.8-2.4) 12/04/20 10:40 12/04/20 Calcium Level 11.2 mg/dL (8.5-10.1) H 12/04/20 10:40 12/04/20 Albumin 2.4 g/dL (3.4-5.0) L 12/04/20 10:40 12/04/20 Glucose Level 144 mg/dL (74-106) H 12/04/20 10:40 12/04/20 Liver Function Panel: Alanine Aminotransferase (ALT/SGPT) 26 U/L (14-59) 12/04/20 10:40 12/04/20 Aspartate Amino Transf (AST/SGOT) 25 U/L (15-37) 12/04/20 10:40 12/04/20 Coagulation Panel: No Data to Display Cardiac Panel: Troponin I < 0.05 ng/mL (<0.06) 12/02/20 23:25 12/02/20 Arterial Blood Gas: No Data to Display Venous Blood Gas: Venous Blood Lactate 3.1 mmol/L (0.6-1.4) H* 12/04/20 10:40 12/04/20 Pancreas Panel: Lipase 40 U/L (73-393) 12/04/20 10:40 12/04/20 Thyroid Panel: No Data to Display Infectious Disease: Coronavirus (COVID-19)(PCR) Negative (Negative) 12/04/20 13:27 12/04/20 Coronavirus 2019 Source Nasal/nares 12/04/20 13:27 12/04/20 Blood Cultures: No Data to Display Toxicology Panel: No Data to Display Panel: Urine HCG, Qualitative Negative 12/04/20 11:35 12/04/20 Imaging and Studies Imaging and Studies CT Summary: 12/04/2020 IMPRESSION: 1. Development of pneumoperitoneum suggestive of a perforated viscus. Primary concern is for gastric perforation which can happen occur from an ulcer. There does appear to be a defect in the lesser curvature of the stomach with associated thickening of the wall. The finding would be consistent with a perforated ulcer. Neoplasm cannot be excluded. 2. Small to moderate amount of abdominal pelvic free fluid. The fluid is of higher density in the upper abdomen particularly adjacent to the stomach and may reflect the oral contrast's passage through the gastric wall defect. 3. Gallbladder distension with mild stranding around the gallbladder. This may represent acute cholecystitis. 4. Mild apparent wall thickening in loops of small bowel in the pelvis. This may represent enteritis. This may be secondary to the gastric perforation. 5. Bilateral basilar infiltrates and question of a small left pleural effusion. 6. Results of this exam have been verbally communicated with provider. Anesthesia Assessment and Plan Anesthesia History Personal History: No History of General Anesthesia Family History: No Family History of Anesthesia Complications Exercise Tolerance Exercise Tolerance: Metabolic Equivalents>4 Pertinent Negatives Pertinent Negatives: No Symptoms of GERD, No Major Cardiovascular Symptoms or Complaints and No Major Pulmonary Symptoms or Complaints Cardiac & Pulmonary Exam Cardiac Exam: Normal S1/S2 Heart Sounds Pulmonary Exam: Clear Bilateral Breath Sounds Airway Exam Known Difficult Airway: No Mallampati Class: 3 Mouth Opening: Normal (> 3cm) Thyromental Distance: Less than 3 cm Neck Range of Motion: Full ROM Neck Circumference: Normal Teeth Condition: Dental Caries (Multiple broekn teeth.) ASA Classification ASA Score: ASA 2 Emergency Case?: Yes NPO Status NPO Status: NPO Clears >2 hours, Solids >8 hours Status Status: Negative HCG Anesthesia Plan Resuscitation Status: Full Code Anesthesia Technique: General Anesthesia Airway Planned: Endotracheal Tube Pain Management: Epidural Monitors Used: Standard Monitors
--- NOTE | 2020-12-04 13:42 | HPE_ITS ---
Date of service: 12/04/20 Time of Service: 13:42 Assessment and Plan Assessment and plan (1) Perforated abdominal viscus: Status: Acute Assessment and plan: To operating room for diagnostic laparoscopy with likely exploratory laparotomy and repair of perforated viscus Broad-spectrum antibiotic coverage IV fluids SC Heparin Protonix drip We will admit to the hospital after OR (2) Sepsis: Status: Acute Assessment and plan: See above (3) Tachycardia: Status: Acute Assessment and plan: See above (4) Leukocytosis: Status: Acute Assessment and plan: See above (5) Lactic acidosis: Status: Acute Assessment and plan: See above History of Present Illness History of Present Illness Chief Complaint: Abdominal pain Narrative: This is a very pleasant 44-year-old female comes in with a 1 week history of back and abdominal pain. She reports that about a week ago she started having low back pain, which she originally thought was due to her degenerative disc disease. 2 days ago it became diffuse abdominal pain, which she presented to the ER for. She was sent home from the ER at that time. The pain is not improved since then so she represented to the hospital after an outpatient ultrasound was questionable, for a CT with double contrast. CT shows possible gastric perforation with extravasation of oral contrast. Her pain is diffuse in the abdomen and sharp. Palpation makes it worse. Nothing seems make it better. Pain does not radiate. She denies any nausea or vomiting. She is not had a bowel movement in 4 days but she is passing flatus. She reports that she does get frequent heartburn and takes Tums only. Denies any other symptoms. Review of Systems All systems reviewed & are unremarkable except as noted in HPI and below PFSH Medical History Asthma Vertigo Social History Smoking/Tobacco Use Status: Current every day Tobacco Type: cigarettes Smoking risk assessment performed?: Yes Alcohol Intake: never Drug use: Never Do you feel safe at home: Yes Do you feel safe in your relationship?: Yes Meds Allergies and Home Medications Allergies Allergy/AdvReac Type Severity Reaction Status Date / Time apple Allergy Unverified 12/02/20 23:36 diphenhydramine Allergy Unverified 12/02/20 23:03 [From Benadryl] pollen extracts Allergy Unverified 12/02/20 23:03 warfarin sodium Allergy Unverified 12/02/20 23:03 [From Coumadin] Home Medications Medication Instructions Recorded Confirmed Type medroxyprogesterone 1 ml IM PER PROTOCOL 10/18/14 12/02/20 History ibuprofen 800 mg PO Q8H PRN #15 tab 03/04/17 12/02/20 Rx cephalexin 500 mg PO BID #10 cap 12/03/20 Rx Exam Const General: cooperative, diaphoretic and ill appearing Nutritional Appearance: average body habitus Orientation: alert, awake and oriented x3 HENMT Head: normal to inspection, normocephalic and atraumatic Ears: external ears normal General nose exam: external nose normal Eyes General: appearance normal, both eyes and all related structures Pupils: PERRL Neck Neck: normal visual inspection, full ROM and trachea midline Chest Chest: normal inspection of the chest Resp Effort & Inspection: normal respiratory effort, able to speak in complete sentences, not labored and no use of accessory muscles Cardio Rate: tachycardic Rhythm: regular rhythm Pulses: normal peripheral pulses GI Palpation: soft and tender (diffuse tenderness with some rebound tenderness in the upper abdomen) Back/Spine/Pelvis Back: No ecchymosis and No back tenderness Skin General skin exam: no rashes or lesions noted and no jaundice Lesions: no lesions Neuro General: patient alert, patient awake and patient oriented x3 Cranial Nerves: CN's II-XI intact bilaterally Extrem General: normal to inspection and full ROM Psych Appearance: grossly normal Speech and Movement: speech and movement normal Results Labs Result diagrams: 12/04/20 10:40 12/04/20 10:40 Labs: Laboratory Results - last 24 hr 12/04/20 12/04/20 12/04/20 10:40 10:40 10:40 WBC 21.46 H RBC 5.13 Hgb 15.9 H Hct 47.6 H MCV 92.8 MCH 31.0 MCHC 33.4 RDW 13.2 Plt Count 431 H MPV 11.3 H Immature Gran % 0.0 Neutrophils % 66.0 Band Neutrophils % 27 Lymphocytes % 3.0 Monocytes % 4.0 Eosinophils % 0.0 Basophils % 0.0 Absolute Neutrophils 19.96 H Absolute Lymphocytes 0.64 L Absolute Monocytes 0.86 H Absolute Eosinophils 0.00 Absolute Basophils 0.00 RBC Morphology Normal VBG Lactate 3.1 H* Sodium 137 Potassium 4.2 D Chloride 99 Carbon Dioxide 25.2 Anion Gap 12.8 H BUN 22 H D Creatinine 1.5 H Estimated GFR/1.73 m2 37.72 Glucose 144 H Calcium 11.2 H Magnesium 2.0 Total Bilirubin 0.5 AST 25 ALT 26 Alkaline Phosphatase 104 Total Protein 8.2 Albumin 2.4 L Lipase Urine Color Urine Clarity Urine pH Ur Specific Pavilion Urine Protein Urine Ketones Urine Blood Urine Nitrite Urine Bilirubin Urine Urobilinogen Ur Leukocyte Esterase Urine RBC Urine WBC Ur Epithelial Cells Urine Crystals Urine Bacteria Urine Casts Urine Mucus Ur Culture Indicated? Urine Glucose COVID-19 Source 12/04/20 12/04/20 12/04/20 10:40 11:35 13:27 WBC RBC Hgb Hct MCV MCH MCHC RDW Plt Count MPV Immature Gran % Neutrophils % Band Neutrophils % Lymphocytes % Monocytes % Eosinophils % Basophils % Absolute Neutrophils Absolute Lymphocytes Absolute Monocytes Absolute Eosinophils Absolute Basophils RBC Morphology VBG Lactate Sodium Potassium Chloride Carbon Dioxide Anion Gap BUN Creatinine Estimated GFR/1.73 m2 Glucose Calcium Magnesium Total Bilirubin AST ALT Alkaline Phosphatase Total Protein Albumin Lipase 40 Urine Color Dark yellow Urine Clarity Clear Urine pH 5.5 Ur Specific Pavilion >= 1.030 H Urine Protein 100 H Urine Ketones Negative Urine Blood Trace-lysed H Urine Nitrite Negative Urine Bilirubin Moderate H Urine Urobilinogen 0.2 Ur Leukocyte Esterase Negative Urine RBC 0-2 Urine WBC 0-2 Ur Epithelial Cells Moderate Urine Crystals Few amorphous Urine Bacteria Negative Urine Casts >50 hyaline Urine Mucus Moderate Ur Culture Indicated? No Urine Glucose Negative COVID-19 Source Nasal/nares Last Vital Signs Temp 98.2 F 12/04/20 12:02 Pulse 113 H 12/04/20 12:40 Resp 26 H 12/04/20 12:50 BP 164/87 H 12/04/20 12:40 Pulse Ox 95 12/04/20 12:50 COVID-19 Screening Have you, or household traveled for leisure in last 14 days?: No Had IN PERSON contact w/suspected or confirmed C-19 person: No
[2020-12-04] MEDS: PIPERACILLIN/TAZO 4.5 GM in Normal Saline 100 ML IVPB (13:51)
[2020-12-04 14:37] LABS: HCG Qual (Urine) Negative
[2020-12-04 15:14] LABS: COVID-19 PCR Negative (Negative)
[2020-12-04] MEDS: PANTOPRAZOLE 80 MG in Normal Saline 100 ML 10 MG IV (16:51)
[2020-12-04] MEDS: Lidocaine 1% Multi-Dose 50 ML VIAL (16:53)
[2020-12-04] MEDS: Lactated Ringers 1,000 ML 30 ML IV (17:10)
[2020-12-04] MEDS: Bupivacaine 0.25% Pres-Free 30 ML VIAL (17:45)
[2020-12-04] MEDS: Bupivacaine LIPOSOME/PF 133 MG/10 ML VIAL IJ (17:45)
--- NOTE | 2020-12-04 18:46 | ROE_ITS ---
Date of service: 12/04/20 Time of Service: 18:46 Operative Note Operative Note Preoperative diagnosis: Perforated viscus Postoperative diagnosis: Gastric perforation Procedure: 1. Diagnostic laparoscopy converted to 2. exploratory laparotomy with modified Abrahma patch repair of perforated gastric ulcer 3. With creation of an omental flap Surgeon: Flakito Grijalva DO [employer] Equipment Repairer: Lacey EBL: 10 cc Complications: None apparent Indications for procedure: Patient is a 44-year-old female came in with a 1 week history of lower back and abdominal pain. CT of the abdomen revealed perforated viscus. Gastric perforation was suspected. Informed consent was obtained for diagnostic laparoscopy, possible laparotomy and procedures as indicated. The risks of benefits of procedure, including but not limited to, bleeding, infection, damage to surrounding structures, repair leak, blood clot, were explained the patient. She is understanding of the risks and wished to proceed. Description of procedure: After informed consent was obtained, patient was wheeled operating room and placed on the OR table in the supine position. The abdomen was inspected prepped and draped in the usual sterile fashion. A timeout was performed. All present were in agreement. A 5 mm incision was made in the patient's left upper quadrant after localization with lidocaine. A Veress needle was used to gain abdominal access and intra-abdominal insufflation was brought to 15 mmHg. The laparoscope was placed in the abdomen and it was obvious that there was a gastric perforation. I then converted to an open procedure. An upper midline laparotomy was performed dissection was carried down into the abdomen. There was gross contamination which was suctioned. A 1 cm gastric perforation was identified on the anterior portion of the stomach. 3-0 silk sutures were used in an interrupted fashion to close the defect in a modified Abraham patch repair fashion. An omental flap had to be created in order to do this. This was done with electrocautery. [address] drains were placed into the abdomen coming out of the right side of the abdomen. This. Drain is located over the stomach and the inferior drain is located in the pelvis. These were sewn in place with 3-0 silk suture. The abdomen was then irrigated with 1 L of warm saline and flushed clean. The abdomen was then closed with #1 PDS in a running fashion. Skin was closed with lalit. Sterile dressings were applied. Patient tolerated the procedure well and was wheeled to the postoperative anesthesia care unit. She will be admitted to [facility].
[2020-12-04] MEDS: Heparin 5,000 UNITS/ML VIAL 5000 UNITS SC (20:17)
[2020-12-04] MEDS: Normal Saline 1,000 ML 125 ML IV (20:17)
[2020-12-04] MEDS: ACETAMINOPHEN 1,000 MG/100 ML BTL 400 MG IVPB (23:48)
[2020-12-05] MEDS: Normal Saline Flush 10 ML SYR IVP ×4 (03:33→20:02)
[2020-12-05] MEDS: PANTOPRAZOLE 80 MG in Normal Saline 100 ML 10 MG IV ×3 (03:33→23:15)
[2020-12-05] MEDS: Normal Saline 1,000 ML 125 ML IV ×3 (03:34→23:15)
[2020-12-05] MEDS: PIPERACILLIN/TAZO 3.375 GM in Normal Saline 50 ML IVPB ×3 (03:34→20:03)
[2020-12-05] MEDS: HYDROmorphone 2 MG/ML VIAL 1 MG IVP ×2 (04:46→09:03)
[2020-12-05 05:15] VITALS: BP 156/88; PULSE 85; RESP 18; TEMP 37; O2SAT 95
[2020-12-05 06:30] LABS: Lactate 1.2 mmol/L (0.6-1.4)
[2020-12-05 06:34] LABS: HCT 35.5 % (36.0-46.0); HGB 12.1 g/dL (11.2-15.7); MCHC 34.1 % (32.0-36.0); MPV 11.2 fL (8.0-11.0); Nucleated RBC 0 %; RDW 13.6 % (11.7-14.6); RDW-SD 45.9 fL; WBC 20.17 10^3/uL (4.4-10.8)
[2020-12-05 06:44] LABS: Anion Gap 8.2 mmol/L (3-11); BUN 17 mg/dL (7-18); CO2 25.8 mmol/L (21.0-32.0); Calcium 8.9 mg/dL (8.5-10.1); Chloride 107 mmol/L (98-107); Glucose 121 mg/dL (74-106); Potassium 3.8 mmol/L (3.5-5.1); Sodium 141 mmol/L (136-145)
[2020-12-05 07:11] LABS: Absolute Lymphocyte Count 2.22 10^3/uL (1.2-3.4); Absolute Neutrophil Count 17.35 10^3/uL (1.2-6.7); Bands % 25; Diff Comment Manual Differential; Metamyelocytes % 2; Platelet Count 355 10^3/uL (130-400); RBC Morphology Normal
[2020-12-05 07:20] VITALS: BP 137/79; PULSE 88; RESP 20; TEMP 37; O2SAT 94
--- NOTE | 2020-12-05 08:53 | PGE_ITS ---
Documented by User: LORENA Cadet 12/06/20 08:17 Date of Service Date of service: 12/05/20 Time of Service: 08:53 Assessment and Plan Assessment and plan (1) Perforated abdominal viscus: Status: Acute Assessment and plan: POD #1 s/p Diagnostic laparoscopy which was convereted to exploratory laparotomy and repair of perforated viscus Broad-spectrum antibiotic coverage IV fluids Continue SC Heparin Protonix drip (2) Sepsis: Status: Acute Assessment and plan: See above (3) Tachycardia: Status: Acute Assessment and plan: See above (4) Leukocytosis: Status: Acute Assessment and plan: See above (5) Lactic acidosis: Status: Acute Assessment and plan: See above Subjective Subjective Interval history since last seen: Patient reports she is very tired today. She denies having any abdominal pain at this time. Exam Const General: cooperative, healthy appearing and comfortable Orientation: alert and oriented x3 Resp Effort & Inspection: normal respiratory effort, no audible wheezes and no cough GI Palpation: soft, no guarding and nontender Other: NAVEED drains in place with serosanguinous drainage Objective Last Vital Signs Temp 37.0 C 12/05/20 05:15 Pulse 85 12/05/20 05:15 Resp 18 12/05/20 05:15 BP 156/88 H 12/05/20 05:15 Pulse Ox 95 12/05/20 05:15 Laboratory Results - last 24 hr 12/04/20 12/04/20 12/04/20 10:40 10:40 10:40 WBC 21.46 H RBC 5.13 Hgb 15.9 H Hct 47.6 H MCV 92.8 MCH 31.0 MCHC 33.4 RDW 13.2 Plt Count 431 H MPV 11.3 H Immature Gran % 0.0 Neutrophils % 66.0 Band Neutrophils % 27 Lymphocytes % 3.0 Monocytes % 4.0 Eosinophils % 0.0 Basophils % 0.0 Metamyelocytes % Nucleated RBC % Absolute Neutrophils 19.96 H Absolute Lymphocytes 0.64 L Absolute Monocytes 0.86 H Absolute Eosinophils 0.00 Absolute Basophils 0.00 RBC Morphology Normal VBG Lactate 3.1 H* Sodium 137 Potassium 4.2 D Chloride 99 Carbon Dioxide 25.2 Anion Gap 12.8 H BUN 22 H D Creatinine 1.5 H Estimated GFR/1.73 m2 37.72 Glucose 144 H Calcium 11.2 H Magnesium 2.0 Total Bilirubin 0.5 AST 25 ALT 26 Alkaline Phosphatase 104 Total Protein 8.2 Albumin 2.4 L Lipase Urine Color Urine Clarity Urine pH Ur Specific [place] Urine Protein Urine Ketones Urine Blood Urine Nitrite Urine Bilirubin Urine Urobilinogen Ur Leukocyte Esterase Urine RBC Urine WBC Ur Epithelial Cells Urine Crystals Urine Bacteria Urine Casts Urine Mucus Ur Culture Indicated? Urine Glucose Urine HCG, Qual COVID-19 Source SARS-CoV-2 (PCR) 12/04/20 12/04/20 12/04/20 10:40 11:35 11:35 WBC RBC Hgb Hct MCV MCH MCHC RDW Plt Count MPV Immature Gran % Neutrophils % Band Neutrophils % Lymphocytes % Monocytes % Eosinophils % Basophils % Metamyelocytes % Nucleated RBC % Absolute Neutrophils Absolute Lymphocytes Absolute Monocytes Absolute Eosinophils Absolute Basophils RBC Morphology VBG Lactate Sodium Potassium Chloride Carbon Dioxide Anion Gap BUN Creatinine Estimated GFR/1.73 m2 Glucose Calcium Magnesium Total Bilirubin AST ALT Alkaline Phosphatase Total Protein Albumin Lipase 40 Urine Color Dark yellow Urine Clarity Clear Urine pH 5.5 Ur Specific [place] >= 1.030 H Urine Protein 100 H Urine Ketones Negative Urine Blood Trace-lysed H Urine Nitrite Negative Urine Bilirubin Moderate H Urine Urobilinogen 0.2 Ur Leukocyte Esterase Negative Urine RBC 0-2 Urine WBC 0-2 Ur Epithelial Cells Moderate Urine Crystals Few amorphous Urine Bacteria Negative Urine Casts >50 hyaline Urine Mucus Moderate Ur Culture Indicated? No Urine Glucose Negative Urine HCG, Qual Negative COVID-19 Source SARS-CoV-2 (PCR) 12/04/20 12/05/20 12/05/20 13:27 06:20 06:20 WBC RBC Hgb Hct MCV MCH MCHC RDW Plt Count MPV Immature Gran % Neutrophils % Band Neutrophils % Lymphocytes % Monocytes % Eosinophils % Basophils % Metamyelocytes % Nucleated RBC % Absolute Neutrophils Absolute Lymphocytes Absolute Monocytes Absolute Eosinophils Absolute Basophils RBC Morphology VBG Lactate 1.2 Sodium Potassium Chloride Carbon Dioxide Anion Gap BUN Creatinine Estimated GFR/1.73 m2 Glucose Calcium Magnesium 2.0 Total Bilirubin AST ALT Alkaline Phosphatase Total Protein Albumin Lipase Urine Color Urine Clarity Urine pH Ur Specific [place] Urine Protein Urine Ketones Urine Blood Urine Nitrite Urine Bilirubin Urine Urobilinogen Ur Leukocyte Esterase Urine RBC Urine WBC Ur Epithelial Cells Urine Crystals Urine Bacteria Urine Casts Urine Mucus Ur Culture Indicated? Urine Glucose Urine HCG, Qual COVID-19 Source Nasal/nares SARS-CoV-2 (PCR) Negative 12/05/20 12/05/20 06:20 06:20 WBC 20.17 H RBC 3.90 L Hgb 12.1 D Hct 35.5 L D MCV 91.0 MCH 31.0 MCHC 34.1 RDW 13.6 Plt Count 355 MPV 11.2 H Immature Gran % See Differential Neutrophils % 61.0 Band Neutrophils % 25 Lymphocytes % 11.0 Monocytes % 1.0 Eosinophils % 0.0 Basophils % 0.0 Metamyelocytes % 2 Nucleated RBC % 0 Absolute Neutrophils 17.35 H Absolute Lymphocytes 2.22 Absolute Monocytes 0.20 Absolute Eosinophils 0.00 Absolute Basophils 0.00 RBC Morphology Normal VBG Lactate Sodium 141 Potassium 3.8 Chloride 107 Carbon Dioxide 25.8 Anion Gap 8.2 BUN 17 Creatinine 1.0 D Estimated GFR/1.73 m2 >= 60.00 Glucose 121 H Calcium 8.9 Magnesium Total Bilirubin AST ALT Alkaline Phosphatase Total Protein Albumin Lipase Urine Color Urine Clarity Urine pH Ur Specific [place] Urine Protein Urine Ketones Urine Blood Urine Nitrite Urine Bilirubin Urine Urobilinogen Ur Leukocyte Esterase Urine RBC Urine WBC Ur Epithelial Cells Urine Crystals Urine Bacteria Urine Casts Urine Mucus Ur Culture Indicated? Urine Glucose Urine HCG, Qual COVID-19 Source SARS-CoV-2 (PCR) Documented by User: Lauren Beckford DO 12/06/20 15:05
--- NOTE | 2020-12-05 08:53 | INITIAL_ITS ---
- If Service Date Differs Date of service: 12/05/20 Time of Service: 08:53 Care Management Initial Assess REASON FOR HOSPITALIZATION:: Perforated gastric ulcer PAST MEDICAL HISTORY/PAST SURGICAL HISTORY:: Asthma, vertigo, current everyday smoker PREVIOUS FUNCTIONAL STATUS/SOCIAL/FAMILY SUPPORTS:: Sully is independent at baseline in the community, she resides in [facility], and her significant other, Eric also resides in [facility]. CURRENT FUNCTIONAL STATUS:: Sully continues to be closely monitored post surgically after diagnostic laparoscopy which converted to exploratory laparotomy and repair of perforated viscus. She remains on broad-spectrum antibiotic coverage, IVF, and heparin and protonix drips. Sully is quite tired today, but reports her pain is managed at this time though when she saw her incision today she reports that was a painful moment. NG tube in place, she reports she is doing well as possible. CM offers CART items, Sully requested word searches and adult coloring which CM provided. ADVANCE DIRECTIVES:: None on file at [facility]. Has patient been provided with info about the portal/API?: Yes Did the patient sign up for the portal?: No CODE STATUS:: Full Code INSURANCE COVERAGE / FINANCIAL ISSUES:: Medicaid CURRENT HOME/COMMUNITY SERVICES/EQUIPMENT:: None, currently. PRIMARY CARE PHYSICIAN:: Lb Zepeda POTENTIAL DISCHARGE NEEDS:: Follow up appointments. PATIENT/FAMILY EDUCATION NEEDS:: Review discharge instructions, discuss Ask Me Three. ANTICIPATED BARRIERS TO DISCHARGE:: None identified at this time. TRANSPORTATION:: Via private vehicle with her significant other, Eric. PLAN:: Sully will return home when ready per MD. She will follow up with her PCP and plan of care as prescribed. She will transport via private vehicle with her significant other, Eric.
[2020-12-05] MEDS: Heparin 5,000 UNITS/ML VIAL 5000 UNITS SC ×2 (08:57→20:02)
--- NOTE | 2020-12-05 10:38 | CHAPLAIN ---
Sully said she's feeling much better since before her surgery. I introduced myself and offered support, but left when OR staff arrived to check in with Sully.
--- NOTE | 2020-12-05 11:54 | W.ANESPOSTOP ---
Postoperative Evaluation Date, Time and Location Date Performed: 12/05/20 Time Performed: 09:25 Patient Location: Med/Surg Vital Signs Most Recent Imported Vital Signs: Most Recent Vital Signs Temp Pulse Resp BP Pulse Ox 37 C 88 20 137/79 94 12/05/20 07:20 12/05/20 07:20 12/05/20 07:20 12/05/20 07:20 12/05/20 07:20 Pain Score Most Recent Pain Score: Most Recent Pain Score Pain Level 0 12/05/20 09:03 Assessment Mental Status: Awake (Alert & Oriented to Patient Baseline) Airway and Respiratory Function: Patent airway with normal (patient baseline) respiratory exam Cardiovascular Function: Hemodynamically Stable and Receiving care as an inpatient Hydration Status: Adequately Hydrated Nausea & Vomiting: No Nausea or Vomiting Pain: Pt. Denies Any Pain Peripheral Nerve Block: Patient did not receive a nerve block
--- NOTE | 2020-12-05 15:46 | PHACLINREV_ITS ---
Pharmacy Admission Review - Admission Clinical Review (Last Reviewed 12/04/20 @ 13:45 by Flakito Grijalva DO) Lactic acidosis (Acute) Leukocytosis (Acute) Tachycardia (Acute) Sepsis (Acute) Perforated abdominal viscus (Acute) Acute abdomen (Acute) apple Allergy (Unverified 12/02/20 23:36) diphenhydramine [From Benadryl] Allergy (Unverified 12/02/20 23:03) pollen extracts Allergy (Unverified 12/02/20 23:03) warfarin sodium [From Coumadin] Allergy (Unverified 12/02/20 23:03) Resuscitation Status Full Code Height 5 ft 9 in Weight 81.647 kg PERFORATED GASTRIC ULCER, OR 12/04/20 - Renal Dosing Renal Dosing: BUN 17 mg/dL (7-18) 12/05/20 06:20 Creatinine 1.0 mg/dL (0.55-1.02) D 12/05/20 06:20 Medications needing adjustments: Reviewed (CrCl~75ml/min) - Anticoagulation Anticoagulation: Hgb 12.1 g/dL (11.2-15.7) D 12/05/20 06:20 Hct 35.5 % (36.0-46.0) L D 12/05/20 06:20 Plt Count 355 10^3/uL (130-400) 12/05/20 06:20 Creatinine 1.0 mg/dL (0.55-1.02) D 12/05/20 06:20 DVT Prohphylaxis: Reviewed Medications: Heparin - Opiate Usage Evaluate Pain Scale/Pains Meds: Reviewed (Pain 7/10 (IV Dilaudid and APAP)) Scheduled Bowel Reg ordered if on Opiates?: No (NPO-reeval when eating) - Relevant Labs Sodium 141 mmol/L (136-145) 12/05/20 06:20 Potassium 3.8 mmol/L (3.5-5.1) 12/05/20 06:20 Chloride 107 mmol/L (98-107) 12/05/20 06:20 Magnesium 2.0 mg/dL (1.8-2.4) 12/05/20 06:20 Electrolytes, C-Reactive P, ESR: Reviewed (WBC 20.17) - DM Control DM Control: Glucose 121 mg/dL (74-106) H 12/05/20 06:20 Insulin Dosing: N/A - Heart Failure/TN EF%, FRANCO's, B-Blockers, Diuretics: N/A - BP Control BP Control: Blood Pressure 137/79 Blood Pressure 156/88 If elevated: Reviewed - Qtc Review If Elevated: N/A - IV to PO Switch IV Medications: Reviewed (currently NPO, IV APAP, Dilaudid, Protonix continuous infusion, Zosyn) - Home Meds Home Med List reviewed: Reviewed (Cephalexin as outpt filled 12/03/20 for 5 day supply, Ibuprofen, Depo-Provera IM) - Current meds Current Medication Order Review: Intervened (-surgeon ordered Micafungin post-op, texted via Teams with LORENA Reyes who saw the patient today and discussed IV Fluconazole as an alternative due to chao and first line therapy.) - Comments Comments/Follow Ups: Because of perforation and gastric contents expelled into abdomen, Antifungal IV treatment is prophylactic for presumed Krystal as explained by LORENA Reyes; was in agreement to use IV Fluconazole for this case. Dose range 200mg-400mg daily. Started with 200mg, as we don't carry the 40 0mg infusion bags. Provider will reach out if dose adjustments need to be made. Pt has NAVEED drains in place, Gastric tube. Micro urine: positive for Klebsiella >100K-covered by Codie she's on Antibiotic Activity - Pharmacy Antibiotic Review Pharmacy Antibiotic Activity: C/S review
--- NOTE | 2020-12-05 16:05 | NUR.NOTE ---
Patient's roscoe's mother took her engagement ring home with her today when she left.
[2020-12-05] MEDS: FLUCONAZOLE 200 MG/100 ML BAG 100 MG IVPB (17:09)
[2020-12-05 17:10] VITALS: BP 146/80; PULSE 88; RESP 19; TEMP 37.9; O2SAT 90
[2020-12-05 20:00] VITALS: RESP 14
[2020-12-05 23:20] VITALS: BP 155/79; PULSE 84; RESP 18; TEMP 36.6; O2SAT 93
[2020-12-06] MEDS: PIPERACILLIN/TAZO 3.375 GM in Normal Saline 50 ML IVPB ×4 (01:35→19:50)
[2020-12-06] MEDS: HYDROmorphone 2 MG/ML VIAL 1 MG IVP (01:43)
[2020-12-06 06:38] LABS: Lactate 1.1 mmol/L (0.6-1.4)
[2020-12-06 06:44] LABS: Absolute Basophil Count 0.09 10^3/uL (0.0-0.2); Absolute Eosinophil Count 0.04 10^3/uL (0.0-0.7); Absolute Neutrophil Count 19.42 10^3/uL (1.2-6.7); Basophils % 0.4; Eosinophils % 0.2; HCT 36.8 % (36.0-46.0); HGB 12.3 g/dL (11.2-15.7); Immature Grans % 0.9; Lymphocytes % 6.1; MCH 30.6 pg (27.0-33.0); MCHC 33.4 % (32.0-36.0); MCV 91.5 fL (80-95); MPV 10.6 fL (8.0-11.0); Monocytes % 4.6; Neutrophils % 87.8; Nucleated RBC 0 %; Platelet Count 389 10^3/uL (130-400); RBC 4.02 10^6/uL (3.93-5.22); RDW 13.7 % (11.7-14.6); RDW-SD 46.8 fL; WBC 22.12 10^3/uL (4.4-10.8)
[2020-12-06 06:50] LABS: Absolute Lymphocyte Count 1.35 10^3/uL (1.2-3.4); Absolute Monocyte Count 1.02 10^3/uL (0.1-0.8)
[2020-12-06 06:51] LABS: Anion Gap 10.6 mmol/L (3-11); BUN 21 mg/dL (7-18); CO2 24.4 mmol/L (21.0-32.0); CREATININE 0.8 mg/dL (0.55-1.02); Calcium 8.5 mg/dL (8.5-10.1); Chloride 109 mmol/L (98-107); Glucose 86 mg/dL (74-106); Potassium 3.4 mmol/L (3.5-5.1); Sodium 144 mmol/L (136-145)
[2020-12-06 06:53] LABS: Magnesium 2.1 mg/dL (1.8-2.4)
[2020-12-06 07:35] VITALS: BP 114/67; PULSE 87; RESP 19; TEMP 36.5; O2SAT 93
--- NOTE | 2020-12-06 08:18 | W.PM.PROGNOT ---
Date of Service Date of service: 12/06/20 Time of Service: 08:18 Assessment and Plan Assessment and plan (1) Perforated abdominal viscus: Status: Acute Assessment and plan: POD #2 s/p Diagnostic laparoscopy which was converted to exploratory laparotomy and repair of perforated viscus NG tube in place; She may have ice chips Broad-spectrum antibiotic coverage and antifungal Continue IV fluids SC Heparin Protonix drip NAVEED drains in place with serosanginous output (2) Sepsis: Status: Acute Assessment and plan: See above (3) Tachycardia: Status: Acute Assessment and plan: See above (4) Leukocytosis: Status: Acute Assessment and plan: See above (5) Lactic acidosis: Status: Acute Assessment and plan: See above Subjective Subjective Interval history since last seen: Patient reports she continues to feel better. She expresses that she is very hungry. Reports mild R sided abdominal discomfort and she points to the location of the drain sites. Exam Const General: cooperative, healthy appearing and comfortable Orientation: alert and oriented x3 Resp Effort & Inspection: normal respiratory effort, no audible wheezes and no cough GI Palpation: soft, no guarding and tender in the RLQ and in the RUQ Objective Last Vital Signs Temp 36.5 C 12/06/20 07:35 Pulse 87 12/06/20 07:35 Resp 19 12/06/20 07:35 BP 114/67 12/06/20 07:35 Pulse Ox 93 12/06/20 07:35 Laboratory Results - last 24 hr 12/06/20 12/06/20 12/06/20 06:32 06:32 06:32 WBC RBC Hgb Hct MCV MCH MCHC RDW Plt Count MPV Immature Gran % Neutrophils % Lymphocytes % Monocytes % Eosinophils % Basophils % Nucleated RBC % Absolute Neutrophils Absolute Lymphocytes Absolute Monocytes Absolute Eosinophils Absolute Basophils VBG Lactate 1.1 Sodium 144 Potassium 3.4 L Chloride 109 H Carbon Dioxide 24.4 Anion Gap 10.6 BUN 21 H Creatinine 0.8 Estimated GFR/1.73 m2 >= 60.00 Glucose 86 Calcium 8.5 Magnesium 2.1 12/06/20 06:32 WBC 22.12 H RBC 4.02 Hgb 12.3 Hct 36.8 MCV 91.5 MCH 30.6 MCHC 33.4 RDW 13.7 Plt Count 389 MPV 10.6 Immature Gran % 0.9 Neutrophils % 87.8 Lymphocytes % 6.1 Monocytes % 4.6 Eosinophils % 0.2 Basophils % 0.4 Nucleated RBC % 0 Absolute Neutrophils 19.42 H Absolute Lymphocytes 1.35 Absolute Monocytes 1.02 H Absolute Eosinophils 0.04 Absolute Basophils 0.09 VBG Lactate Sodium Potassium Chloride Carbon Dioxide Anion Gap BUN Creatinine Estimated GFR/1.73 m2 Glucose Calcium Magnesium
[2020-12-06] MEDS: Heparin 5,000 UNITS/ML VIAL 5000 UNITS SC ×2 (08:42→19:51)
[2020-12-06 09:20] VITALS: TEMP 36.5
[2020-12-06] MEDS: PANTOPRAZOLE 80 MG in Normal Saline 100 ML 10 MG IV ×2 (09:20→23:28)
[2020-12-06 10:17] VITALS: RESP 20; O2SAT 93
--- NOTE | 2020-12-06 13:07 | PDOC.CMPRO ---
Care Management Progress Note S/O: Sully remains pleasant in interaction, expressing no needs at this time. She continues to be closely monitored and treated, she continues to be uncomfortable around the NAVEED drain sights but reports she is feeling better. She is experiencing hunger, is NPO with ice chips only, NG tube remains in place. IVF and IV ABX continue as well as Heparin drip and protonix drip. She is up out of bed to use the bedside commode. CM continues to follow. A: 44 year old female admitted to [facility] with perforated gastric ulcer P: Anticipate Sully will return home when ready per MD. She will follow up with her PCP and plan of care as prescribed. She will transport via private vehicle with her significant other, Eric.
[2020-12-06 15:38] VITALS: BP 152/78; PULSE 82; RESP 18; TEMP 37.4; O2SAT 93
[2020-12-06] MEDS: FLUCONAZOLE 200 MG/100 ML BAG 100 MG IVPB (17:03)
[2020-12-06] MEDS: POTASSIUM CHLORIDE 20 MEQ/100 ML BAG 50 MEQ IVPB ×3 (18:05→23:28)
[2020-12-06 19:30] VITALS: RESP 20; O2SAT 93
[2020-12-06 23:18] VITALS: BP 164/79; PULSE 82; RESP 18; TEMP 36.5; O2SAT 93
[2020-12-07] MEDS: PIPERACILLIN/TAZO 3.375 GM in Normal Saline 50 ML IVPB ×4 (02:05→19:28)
[2020-12-07] MEDS: POTASSIUM CHLORIDE/D5-0.45NACL 1,000 ML 125 MEQ IV ×2 (06:31→17:44)
[2020-12-07 06:53] LABS: Abs Immature Grans 0.28 10^3/uL (0.0-0.06); Absolute Lymphocyte Count 1.69 10^3/uL (1.2-3.4); Absolute Monocyte Count 1.13 10^3/uL (0.1-0.8); Absolute Neutrophil Count 17.33 10^3/uL (1.2-6.7); Basophils % 0.4; Eosinophils % 0.5; HCT 36.8 % (36.0-46.0); HGB 12.3 g/dL (11.2-15.7); Immature Grans % 1.4; Lymphocytes % 8.2; MCH 30.8 pg (27.0-33.0); MCHC 33.4 % (32.0-36.0); MPV 10.8 fL (8.0-11.0); Monocytes % 5.5; Nucleated RBC 0 %; Platelet Count 369 10^3/uL (130-400); RDW-SD 47.8 fL; WBC 20.63 10^3/uL (4.4-10.8)
[2020-12-07 06:59] LABS: Absolute Basophil Count 0.08 10^3/uL (0.0-0.2)
[2020-12-07 07:12] LABS: BUN 15 mg/dL (7-18); CREATININE 0.7 mg/dL (0.55-1.02); Calcium 8.3 mg/dL (8.5-10.1); Chloride 109 mmol/L (98-107); Glucose 153 mg/dL (74-106); Potassium 3.5 mmol/L (3.5-5.1); Sodium 145 mmol/L (136-145)
[2020-12-07] MEDS: Heparin 5,000 UNITS/ML VIAL 5000 UNITS SC ×2 (08:10→19:28)
[2020-12-07 08:30] VITALS: BP 147/85; PULSE 85; RESP 15; RESP 22; TEMP 37.6; O2SAT 96
[2020-12-07] MEDS: PANTOPRAZOLE 80 MG in Normal Saline 100 ML 10 MG IV ×2 (09:50→20:05)
--- NOTE | 2020-12-07 10:08 | PDOC.CMPRO ---
- If Service Date Differs Date of service: 12/07/20 Time of Service: 10:09 Care Management Progress Note S/O: Sully was sitting up in a chair when CM met with her this morning. She was polite but not very talkative. Sully stated that she was feeling better and that her pain is about a 1/10. She is on a clear liquid diet and is tolerating it well. A: 44 year old female admitted to [facility] with perforated gastric ulcer P: Anticipate Sully will return home when ready per MD. She will follow up with her PCP and plan of care as prescribed. She will transport via private vehicle with her significant other, Eric.
[2020-12-07] MEDS: ACETAMINOPHEN 1,000 MG/100 ML BTL 400 MG IVPB (14:06)
[2020-12-07 15:23] VITALS: BP 120/76; PULSE 82; RESP 19; TEMP 36.8; O2SAT 94
[2020-12-07] MEDS: FLUCONAZOLE 200 MG/100 ML BAG 100 MG IVPB (15:55)
[2020-12-07] MEDS: Normal Saline Flush 10 ML SYR IVP (19:28)
[2020-12-07] MEDS: HYDROmorphone 2 MG/ML VIAL 1 MG IVP (21:23)
[2020-12-07 23:53] VITALS: BP 133/81; PULSE 83; RESP 18; TEMP 36.8; O2SAT 94
--- NOTE | 2020-12-08 | DI.RAD_ITS ---
Exam(s) XR CHEST 2V PA LATERAL EXAM: XR CHEST 2V PA LATERAL CLINICAL HISTORY: Fever. TECHNIQUE: 2D digital imaging was performed. COMPARISON: CT CT ABDOMEN PELVIS W from 12/04/2020 FINDINGS: Heart size is normal. The mediastinum is not widened. There is no atelectasis and infiltrate in both lung bases. There is also a small left pleural effusi on. IMPRESSION: Infiltrates both lung bases. Also small left pleural effusion noted. These findings were not evident on the uppermost images of a bdominal CT scan performed 12/04/2020 DATA REPOSITORY: RADIATION DOSE DELIVERED:
--- NOTE | 2020-12-08 01:57 | NUR.NOTE ---
Nasogastric tube was reported by MD as per patient report earlier during the shift.
[2020-12-08] MEDS: PIPERACILLIN/TAZO 3.375 GM in Normal Saline 50 ML IVPB ×4 (02:25→20:24)
[2020-12-08] MEDS: POTASSIUM CHLORIDE/D5-0.45NACL 1,000 ML 125 MEQ IV (02:25)
[2020-12-08] MEDS: HYDROmorphone 2 MG/ML VIAL 1 MG IVP (06:13)
[2020-12-08] MEDS: PANTOPRAZOLE 80 MG in Normal Saline 100 ML 10 MG IV ×2 (06:14→21:59)
[2020-12-08] MEDS: Normal Saline Flush 10 ML SYR IVP ×2 (06:15→15:29)
[2020-12-08 07:55] LABS: Anion Gap 10.8 mmol/L (3-11); BUN 7 mg/dL (7-18); CO2 24.2 mmol/L (21.0-32.0); CREATININE 0.7 mg/dL (0.55-1.02); Chloride 107 mmol/L (98-107); Glucose 138 mg/dL (74-106); Magnesium 1.7 mg/dL (1.8-2.4); Potassium 3.2 mmol/L (3.5-5.1); Sodium 142 mmol/L (136-145)
[2020-12-08 07:57] LABS: Abs Immature Grans 0.41 10^3/uL (0.0-0.06); Absolute Eosinophil Count 0.09 10^3/uL (0.0-0.7); Absolute Lymphocyte Count 2.04 10^3/uL (1.2-3.4); Absolute Monocyte Count 1.23 10^3/uL (0.1-0.8); Absolute Neutrophil Count 19.35 10^3/uL (1.2-6.7); Basophils % 0.3; Eosinophils % 0.4; HCT 37.4 % (36.0-46.0); HGB 12.8 g/dL (11.2-15.7); Immature Grans % 1.8; Lymphocytes % 8.8; MCH 31.5 pg (27.0-33.0); MCHC 34.2 % (32.0-36.0); MCV 92.1 fL (80-95); MPV 10.4 fL (8.0-11.0); Monocytes % 5.3; Neutrophils % 83.4; Nucleated RBC 0 %; Platelet Count 337 10^3/uL (130-400); RBC 4.06 10^6/uL (3.93-5.22); RDW 13.8 % (11.7-14.6); RDW-SD 47.2 fL
[2020-12-08 07:59] LABS: Absolute Basophil Count 0.07 10^3/uL (0.0-0.2)
[2020-12-08] MEDS: Heparin 5,000 UNITS/ML VIAL 5000 UNITS SC ×2 (08:00→20:23)
[2020-12-08 08:21] VITALS: BP 149/78; PULSE 89; RESP 18; TEMP 37.2; O2SAT 95
--- NOTE | 2020-12-08 08:30 | PDOC.CMPRO ---
- If Service Date Differs Date of service: 12/08/20 Time of Service: 08:30 Care Management Progress Note S/O: Sluly was sitting up in a chair when CM met with her. She was polite but not very talkative. Sully continues to spike fevers and a medical consult with the hospitalists has been ordered. She did ambulate with PT today but was very weak. Sully has had several episodes of urinary incontinence in the past 2 days; she had a large formed stool this morning as well. A: 44 year old female admitted to [facility] with perforated gastric ulcer P: Anticipate uSlly will return home when ready per MD. She will follow up with her PCP and plan of care as prescribed. She will transport via private vehicle with her significant other, Eric. CM will continue to support Sully and assess for discharge planning concerns.
[2020-12-08 15:13] VITALS: BP 155/81; PULSE 92; RESP 19; TEMP 38.4; O2SAT 96
[2020-12-08 15:22] VITALS: TEMP 38.4
[2020-12-08] MEDS: ACETAMINOPHEN 1,000 MG/100 ML BTL 400 MG IVPB (15:22)
[2020-12-08] MEDS: FLUCONAZOLE 200 MG/100 ML BAG 100 MG IVPB (15:35)
--- NOTE | 2020-12-08 16:22 | W.MEDCONSULT ---
Date of service: 12/08/20 Time of Service: 16:22 Assessment and Plan Assessment and plan (1) Leukocytosis: Status: Acute Assessment and plan: Etiology likely abd but no sign/sxs of peritonitis. Add Flag[place] to antibiotic coverage. Currently on Zosyn and Fluconazole. UA pending. CXR pending. Blood cultues obtained. Qualifiers: Eosinophilia type: in diseases classified elsewhere (2) Perforated abdominal viscus: Status: Acute Assessment and plan: s/p repair with modified Abraham patch. Tenderness and mild erythema at abd drain site. See leukocytosis. History of Present Illness History of Present Illness Chief Complaint: Fever Narrative: This is a 44 yo female who is s/p gastric perforation with subsequent modified Abraham patch repair with creation of an omental flap on 12/04/20. She had been recovering well then on day of this consult had an elevated temperature of 38.4. She c/o tenderness at the site of R abd drain but no diffuse abd pain. Her WBC count has remained in the 20's post-operatively and today was 23.2. She describes hot flashes this afternoon. No N/V. She has been tolerating her diet. She does have a h/o asthma and has had an occasional cough / no sputum. Review of Systems All systems reviewed & are unremarkable except as noted in HPI and below PFSH Medical History Asthma Vertigo Social History Smoking/Tobacco Use Status: Current every day Tobacco Type: cigarettes Smoking risk assessment performed?: Yes Alcohol Intake: never Drug use: Never Do you feel safe at home: Yes Do you feel safe in your relationship?: Yes Exam Const General: cooperative and no acute distress Nutritional Appearance: average body habitus Orientation: alert and oriented x3 Eyes Sclera: sclerae normal Pupils: PERRL Resp Effort & Inspection: normal respiratory effort Auscultation: clear to auscultation bilaterally Cardio Rate: regular rate Rhythm: regular rhythm Heart Sounds: S1 normal and S2 normal GI Palpation: soft and tender (Mild tenderness at R abd drain site.) with no rebound tenderness Skin General skin exam: erythema (mild circumferential erythema at R drain site ) Neuro General: patient alert, patient oriented x3 and no focal motor deficits Cognition: normal cognition Speech: speech normal Extrem General: no pedal edema and no calf tenderness Results Last Vital Signs Temp 38.4 C H 12/08/20 15:22 Pulse 92 H 12/08/20 15:13 Resp 19 12/08/20 15:13 BP 155/81 H 12/08/20 15:13 Pulse Ox 96 12/08/20 15:13 Labs Result diagrams: 12/08/20 07:30 12/08/20 07:30 Labs: Laboratory Results - last 24 hr 12/08/20 12/08/20 12/08/20 07:30 07:30 07:30 WBC 23.20 H RBC 4.06 Hgb 12.8 Hct 37.4 MCV 92.1 MCH 31.5 MCHC 34.2 RDW 13.8 Plt Count 337 MPV 10.4 Immature Gran % 1.8 Neutrophils % 83.4 Lymphocytes % 8.8 Monocytes % 5.3 Eosinophils % 0.4 Basophils % 0.3 Nucleated RBC % 0 Absolute Neutrophils 19.35 H Absolute Lymphocytes 2.04 Absolute Monocytes 1.23 H Absolute Eosinophils 0.09 Absolute Basophils 0.07 Sodium 142 Potassium 3.2 L Chloride 107 Carbon Dioxide 24.2 Anion Gap 10.8 BUN 7 Creatinine 0.7 Estimated GFR/1.73 m2 >= 60.00 Glucose 138 H Calcium 8.0 L Magnesium 1.7 L
[2020-12-08 16:32] LABS: Bilirubin Negative (Negative); Blood Trace-intact (Negative); Clarity Clear (Clear); Glucose Negative (Negative); Ketones Negative (Negative); Leukocyte Esterase Negative (Negative); Nitrite Negative (Negative)
[2020-12-08] MEDS: metroNIDAZOLE 1,000 MG/200 ML BAG 200 MG IVPB (16:42)
[2020-12-08 16:43] LABS: Bacteria Negative HPF (Negative); C & S Indicated? No/Sq. Contamination; Crystals Negative HPF (Negative); Epithelial Cells Many HPF (Negative); Mucus Negative (Negative); Other Cells Negative (Negative); RBC 0-2 HPF (0-2); WBC 0-2 HPF (0-5)
[2020-12-08 16:44] LABS: Casts 0-2 Coarse Granular LPF (Negative)
[2020-12-08] MEDS: Potassium Chloride 20 MEQ TABCR PO ×2 (17:35)
--- NOTE | 2020-12-08 17:51 | DI.VRAD_ITS ---
PROCEDURE INFORMATION: Exam: XR Chest Exam date and time: 12/08/2020 3:43 PM Age: 44 years old Clinical indication: Fever TECHNIQUE: Imaging protocol: XR of the chest. Views: 2 views. COMPARISON: No relevant prior studies available. FINDINGS: Lungs: Mild linear airspace disease and/or atelectasis both lung bases. Lungs otherwise clear. Pleural spaces: Possible small left pleural effusion. Heart/Mediastinum: Unremarkable. No cardiomegaly. Bones/joints: Unremarkable. IMPRESSION: 1. Mild linear airspace disease and/or atelectasis both lung bases. 2. Possible small left pleural effusion. Dictated and Authenticated by: Joshua Zamora MD. Ordering:NICKIE Bennett MD
[2020-12-08 20:33] VITALS: RESP 18
[2020-12-08] MEDS: metroNIDAZOLE 500 MG TAB PO (21:32)
[2020-12-08 22:23] VITALS: BP 147/80; PULSE 83; RESP 18; TEMP 36.9; O2SAT 96
--- NOTE | 2020-12-08 23:16 | W.PM.PROGNOT ---
Date of Service Date of service: 12/07/20 Time of Service: 23:15 Assessment and Plan Assessment and plan (1) Perforated abdominal viscus: Status: Acute Assessment and plan: Perforated gastric ulcer s/p modified ramón patch repair. clear liquid diet IVF Pain control Zosyn Fluconazole IS use 10x/hr NGT DC'd Subjective Subjective Patient reports: no new complaints and feels better Interval history since last seen: Late entry: Patient was seen and examined on 12/07, however. No nausea/emesis. Patient reports feeling much better. +flatus Exam Const General: cooperative, healthy appearing, comfortable and no acute distress GI Palpation: soft and tender (appropriately tender. No guarding/rebound. drains intact with SS output) Objective Last Vital Signs Temp 98.4 F 12/08/20 22:23 Pulse 83 12/08/20 22:23 Resp 18 12/08/20 22:23 BP 147/80 H 12/08/20 22:23 Pulse Ox 96 12/08/20 22:23 Laboratory Results - last 24 hr 12/08/20 12/08/20 12/08/20 07:30 07:30 07:30 WBC 23.20 H RBC 4.06 Hgb 12.8 Hct 37.4 MCV 92.1 MCH 31.5 MCHC 34.2 RDW 13.8 Plt Count 337 MPV 10.4 Immature Gran % 1.8 Neutrophils % 83.4 Lymphocytes % 8.8 Monocytes % 5.3 Eosinophils % 0.4 Basophils % 0.3 Nucleated RBC % 0 Absolute Neutrophils 19.35 H Absolute Lymphocytes 2.04 Absolute Monocytes 1.23 H Absolute Eosinophils 0.09 Absolute Basophils 0.07 Sodium 142 Potassium 3.2 L Chloride 107 Carbon Dioxide 24.2 Anion Gap 10.8 BUN 7 Creatinine 0.7 Estimated GFR/1.73 m2 >= 60.00 Glucose 138 H Calcium 8.0 L Magnesium 1.7 L Urine Color Urine Clarity Urine pH Ur Specific [place] Urine Protein Urine Ketones Urine Blood Urine Nitrite Urine Bilirubin Urine Urobilinogen Ur Leukocyte Esterase Urine RBC Urine WBC Ur Epithelial Cells Urine Crystals Urine Bacteria Urine Casts Urine Mucus Urine Other Ur Culture Indicated? Urine Glucose 12/08/20 16:15 WBC RBC Hgb Hct MCV MCH MCHC RDW Plt Count MPV Immature Gran % Neutrophils % Lymphocytes % Monocytes % Eosinophils % Basophils % Nucleated RBC % Absolute Neutrophils Absolute Lymphocytes Absolute Monocytes Absolute Eosinophils Absolute Basophils Sodium Potassium Chloride Carbon Dioxide Anion Gap BUN Creatinine Estimated GFR/1.73 m2 Glucose Calcium Magnesium Urine Color Yellow Urine Clarity Clear Urine pH 7.0 Ur Specific [place] 1.020 Urine Protein 30 H Urine Ketones Negative Urine Blood Trace-intact H Urine Nitrite Negative Urine Bilirubin Negative Urine Urobilinogen 2.0 H Ur Leukocyte Esterase Negative Urine RBC 0-2 Urine WBC 0-2 Ur Epithelial Cells Many Urine Crystals Negative Urine Bacteria Negative Urine Casts 0-2 coarse granular Urine Mucus Negative Urine Other Negative Ur Culture Indicated? No/sq. contamination Urine Glucose Negative
--- NOTE | 2020-12-08 23:21 | W.PM.PROGNOT ---
Date of Service Date of service: 12/08/20 Time of Service: 13:15 Assessment and Plan Assessment and plan (1) Perforated abdominal viscus: Status: Acute Assessment and plan: Perforated gastric ulcer s/p modified ramón patch repair. Full liquid diet IVF Pain control Zosyn Fluconazole IS use 10x/hr Medicine was consulted to assist with the patient's increasing WBC and fever. I personally discussed the case with internal medicine. Subjective Subjective Patient reports: no new complaints and feels better Interval history since last seen: Patient reports that she continue to feels better, however she is febrile. Abdominal pain much improved. No nausea/emesis. Patient reports feeling much better. +flatus and BM Exam Const General: cooperative, healthy appearing, comfortable, no acute distress, diaphoretic and ill appearing Nutritional Appearance: average body habitus Orientation: alert, awake and oriented x3 HENMT Head: normal to inspection, normocephalic and atraumatic Ears: external ears normal General nose exam: external nose normal Eyes General: appearance normal, both eyes and all related structures Pupils: PERRL Neck Neck: normal visual inspection, full ROM and trachea midline Chest Chest: normal inspection of the chest Resp Effort & Inspection: normal respiratory effort, able to speak in complete sentences, not labored and no use of accessory muscles Cardio Rate: tachycardic Rhythm: regular rhythm Pulses: normal peripheral pulses GI Palpation: soft and tender (appropriately tender. No guarding/rebound. drains intact with SS output) Other: erythema surrounding superior [place] drain Back/Spine/Pelvis Back: No ecchymosis and No back tenderness Skin General skin exam: no rashes or lesions noted and no jaundice Lesions: no lesions Neuro General: patient alert, patient awake and patient oriented x3 Cranial Nerves: CN's II-XI intact bilaterally Extrem General: normal to inspection and full ROM Psych Appearance: grossly normal Speech and Movement: speech and movement normal Objective Last Vital Signs Temp 98.4 F 12/08/20 22:23 Pulse 83 12/08/20 22:23 Resp 18 12/08/20 22:23 BP 147/80 H 12/08/20 22:23 Pulse Ox 96 12/08/20 22:23 Laboratory Results - last 24 hr 12/08/20 12/08/20 12/08/20 07:30 07:30 07:30 WBC 23.20 H RBC 4.06 Hgb 12.8 Hct 37.4 MCV 92.1 MCH 31.5 MCHC 34.2 RDW 13.8 Plt Count 337 MPV 10.4 Immature Gran % 1.8 Neutrophils % 83.4 Lymphocytes % 8.8 Monocytes % 5.3 Eosinophils % 0.4 Basophils % 0.3 Nucleated RBC % 0 Absolute Neutrophils 19.35 H Absolute Lymphocytes 2.04 Absolute Monocytes 1.23 H Absolute Eosinophils 0.09 Absolute Basophils 0.07 Sodium 142 Potassium 3.2 L Chloride 107 Carbon Dioxide 24.2 Anion Gap 10.8 BUN 7 Creatinine 0.7 Estimated GFR/1.73 m2 >= 60.00 Glucose 138 H Calcium 8.0 L Magnesium 1.7 L Urine Color Urine Clarity Urine pH Ur Specific [place] Urine Protein Urine Ketones Urine Blood Urine Nitrite Urine Bilirubin Urine Urobilinogen Ur Leukocyte Esterase Urine RBC Urine WBC Ur Epithelial Cells Urine Crystals Urine Bacteria Urine Casts Urine Mucus Urine Other Ur Culture Indicated? Urine Glucose 12/08/20 16:15 WBC RBC Hgb Hct MCV MCH MCHC RDW Plt Count MPV Immature Gran % Neutrophils % Lymphocytes % Monocytes % Eosinophils % Basophils % Nucleated RBC % Absolute Neutrophils Absolute Lymphocytes Absolute Monocytes Absolute Eosinophils Absolute Basophils Sodium Potassium Chloride Carbon Dioxide Anion Gap BUN Creatinine Estimated GFR/1.73 m2 Glucose Calcium Magnesium Urine Color Yellow Urine Clarity Clear Urine pH 7.0 Ur Specific [place] 1.020 Urine Protein 30 H Urine Ketones Negative Urine Blood Trace-intact H Urine Nitrite Negative Urine Bilirubin Negative Urine Urobilinogen 2.0 H Ur Leukocyte Esterase Negative Urine RBC 0-2 Urine WBC 0-2 Ur Epithelial Cells Many Urine Crystals Negative Urine Bacteria Negative Urine Casts 0-2 coarse granular Urine Mucus Negative Urine Other Negative Ur Culture Indicated? No/sq. contamination Urine Glucose Negative
[2020-12-09] MEDS: ACETAMINOPHEN 1,000 MG/100 ML BTL 400 MG IVPB (00:12)
[2020-12-09] MEDS: PIPERACILLIN/TAZO 3.375 GM in Normal Saline 50 ML IVPB ×4 (02:12→19:52)
[2020-12-09] MEDS: HYDROmorphone 2 MG/ML VIAL 1 MG IVP ×2 (03:36→18:43)
[2020-12-09] MEDS: Normal Saline Flush 10 ML SYR IVP ×3 (03:36→18:44)
[2020-12-09] MEDS: metroNIDAZOLE 500 MG TAB PO ×4 (03:40→21:55)
[2020-12-09 03:42] VITALS: BP 118/70; PULSE 86; RESP 19; TEMP 36.5; O2SAT 91
[2020-12-09] MEDS: POTASSIUM CHLORIDE/D5-0.45NACL 1,000 ML 125 MEQ IV ×2 (05:58→14:41)
[2020-12-09 06:45] LABS: HCT 34.6 % (36.0-46.0); HGB 11.7 g/dL (11.2-15.7); MCH 30.7 pg (27.0-33.0); MCHC 33.8 % (32.0-36.0); MCV 90.8 fL (80-95); MPV 10.3 fL (8.0-11.0); Platelet Count 293 10^3/uL (130-400); RBC 3.81 10^6/uL (3.93-5.22); RDW-SD 47.1 fL; WBC 19.52 10^3/uL (4.4-10.8)
[2020-12-09 06:59] LABS: BUN 8 mg/dL (7-18); CREATININE 0.7 mg/dL (0.55-1.02); Chloride 108 mmol/L (98-107); Glucose 106 mg/dL (74-106); Potassium 3.4 mmol/L (3.5-5.1); Sodium 141 mmol/L (136-145)
[2020-12-09 07:00] LABS: Magnesium 1.6 mg/dL (1.8-2.4)
[2020-12-09 07:01] LABS: Absolute Lymphocyte Count 0.98 10^3/uL (1.2-3.4); Absolute Monocyte Count 0.98 10^3/uL (0.1-0.8); Absolute Neutrophil Count 17.57 10^3/uL (1.2-6.7); Bands % 1
[2020-12-09 07:02] LABS: Diff Comment Manual Differential; RBC Morphology Normal
[2020-12-09 07:13] VITALS: BP 144/78; PULSE 83; RESP 17; TEMP 36.5; O2SAT 94
[2020-12-09] MEDS: Heparin 5,000 UNITS/ML VIAL 5000 UNITS SC ×2 (08:06→19:52)
[2020-12-09] MEDS: Potassium Chloride 20 MEQ TABCR PO (08:06)
--- NOTE | 2020-12-09 09:31 | PGE_ITS ---
Date of Service Date of service: 12/09/20 Time of Service: 09:31 Assessment and Plan Assessment and plan (1) Perforated abdominal viscus: Status: Acute Assessment and plan: Perforated gastric ulcer s/p modified ramón patch repair. Full liquid diet Continue IV hydration Pain control Zosyn and flagyl Fluconazole Encouraged use of incentive spirometer and ambulation as tolerated. WBC decreased today. Continue to monitor LUQ incision. Keep the area cleansed and change dressing PRN for soiled dressings. Subjective Subjective Interval history since last seen: Patient reports that she is feeling better. She reports her pain is improving. She has been ambulating around the room. LUQ incision is draining lots of fluid yesterday and this morning. Exam Const General: cooperative and comfortable Orientation: alert and oriented x3 Resp Effort & Inspection: normal respiratory effort, no audible wheezes and no cough GI Palpation: soft, no guarding and nontender Other: LUQ incision- Draining red/brown pus. Area cleansed and new dressing applied NAVEED drains in place with serosanginous drainage. Objective Last Vital Signs Temp 36.5 C 12/09/20 07:13 Pulse 83 12/09/20 07:13 Resp 17 12/09/20 07:13 BP 144/78 H 12/09/20 07:13 Pulse Ox 94 12/09/20 07:13 Laboratory Results - last 24 hr 12/08/20 12/09/20 12/09/20 16:15 06:35 06:35 WBC RBC Hgb Hct MCV MCH MCHC RDW Plt Count MPV Immature Gran % Neutrophils % Band Neutrophils % Lymphocytes % Monocytes % Eosinophils % Basophils % Absolute Neutrophils Absolute Lymphocytes Absolute Monocytes Absolute Eosinophils Absolute Basophils RBC Morphology Sodium 141 Potassium 3.4 L Chloride 108 H Carbon Dioxide 25.0 Anion Gap 8.0 BUN 8 Creatinine 0.7 Estimated GFR/1.73 m2 >= 60.00 Glucose 106 Calcium 8.0 L Magnesium 1.6 L Urine Color Yellow Urine Clarity Clear Urine pH 7.0 Ur Specific [place] 1.020 Urine Protein 30 H Urine Ketones Negative Urine Blood Trace-intact H Urine Nitrite Negative Urine Bilirubin Negative Urine Urobilinogen 2.0 H Ur Leukocyte Esterase Negative Urine RBC 0-2 Urine WBC 0-2 Ur Epithelial Cells Many Urine Crystals Negative Urine Bacteria Negative Urine Casts 0-2 coarse granular Urine Mucus Negative Urine Other Negative Ur Culture Indicated? No/sq. contamination Urine Glucose Negative 12/09/20 06:35 WBC 19.52 H RBC 3.81 L Hgb 11.7 Hct 34.6 L MCV 90.8 MCH 30.7 MCHC 33.8 RDW 14.0 Plt Count 293 MPV 10.3 Immature Gran % 0.0 Neutrophils % 89.0 Band Neutrophils % 1 Lymphocytes % 5.0 Monocytes % 5.0 Eosinophils % 0.0 Basophils % 0.0 Absolute Neutrophils 17.57 H Absolute Lymphocytes 0.98 L Absolute Monocytes 0.98 H Absolute Eosinophils 0.00 Absolute Basophils 0.00 RBC Morphology Normal Sodium Potassium Chloride Carbon Dioxide Anion Gap BUN Creatinine Estimated GFR/1.73 m2 Glucose Calcium Magnesium Urine Color Urine Clarity Urine pH Ur Specific [place] Urine Protein Urine Ketones Urine Blood Urine Nitrite Urine Bilirubin Urine Urobilinogen Ur Leukocyte Esterase Urine RBC Urine WBC Ur Epithelial Cells Urine Crystals Urine Bacteria Urine Casts Urine Mucus Urine Other Ur Culture Indicated? Urine Glucose
[2020-12-09] MEDS: MAGNESIUM SULFATE 2 GM/50 ML BAG IVPB (09:55)
[2020-12-09] MEDS: PANTOPRAZOLE 80 MG in Normal Saline 100 ML 10 MG IV ×2 (09:56→21:08)
--- NOTE | 2020-12-09 10:04 | CMPROGNOTE_ITS ---
Care Management Progress Note S/O: Sully was sitting up in a chair when CM met with her this morning. She remains pleasant though not overly forthcoming. CM continues to follow. A: 44 year old female admitted to [facility] with perforated gastric ulcer P: Anticipate Sully will return home when ready per MD. She will follow up with her PCP and plan of care as prescribed. She will transport via private vehicle with her significant other, Eric.
--- NOTE | 2020-12-09 10:28 | PDOC.CMDIS ---
Care Management Discharge Reason for Hospitalization: Perforated gastric ulcer
--- NOTE | 2020-12-09 12:12 | W.PM.PROGNOT ---
Date of Service Date of service: 12/09/20 Time of Service: 12:13 Assessment and Plan Assessment and plan (1) Perforated abdominal viscus: Status: Acute Assessment and plan: Now with purulent drainage from abd incision. Cont Zosyn, Flagyl and fluconazole. Monitor WBC count. (2) Asthma: Status: Chronic Assessment and plan: Cont IS PRN albuterol. Improved. Subjective Subjective Patient reports: no new complaints, nausea and afebrile; denies vomiting Interval history since last seen: cough and ease of breathing have improved; using IS. Appetite is diminished this AM; states she feels nauseated since taking oral K+ supplement. Exam Const General: cooperative and no acute distress Nutritional Appearance: average body habitus Orientation: awake and other (appears fatigued) Eyes Sclera: sclerae normal Resp Effort & Inspection: normal respiratory effort Auscultation: clear to auscultation bilaterally Cardio Rate: regular rate Rhythm: regular rhythm Heart Sounds: S1 normal and S2 normal GI Palpation: soft and tender (mild appropriate tenderness at incision and mild tenderness at drain.) Auscultation: normal bowel sounds Extrem General: no pedal edema and no calf tenderness Psych Appearance: grossly normal Mental Status: mental status grossly normal Speech and Movement: speech and movement normal Affect: blunted Objective Last Vital Signs Temp 36.5 C 12/09/20 07:13 Pulse 83 12/09/20 07:13 Resp 17 12/09/20 07:13 BP 144/78 H 12/09/20 07:13 Pulse Ox 94 12/09/20 07:13 Laboratory Results - last 24 hr 12/08/20 12/09/20 12/09/20 16:15 06:35 06:35 WBC RBC Hgb Hct MCV MCH MCHC RDW Plt Count MPV Immature Gran % Neutrophils % Band Neutrophils % Lymphocytes % Monocytes % Eosinophils % Basophils % Absolute Neutrophils Absolute Lymphocytes Absolute Monocytes Absolute Eosinophils Absolute Basophils RBC Morphology Sodium 141 Potassium 3.4 L Chloride 108 H Carbon Dioxide 25.0 Anion Gap 8.0 BUN 8 Creatinine 0.7 Estimated GFR/1.73 m2 >= 60.00 Glucose 106 Calcium 8.0 L Magnesium 1.6 L Urine Color Yellow Urine Clarity Clear Urine pH 7.0 Ur Specific [place] 1.020 Urine Protein 30 H Urine Ketones Negative Urine Blood Trace-intact H Urine Nitrite Negative Urine Bilirubin Negative Urine Urobilinogen 2.0 H Ur Leukocyte Esterase Negative Urine RBC 0-2 Urine WBC 0-2 Ur Epithelial Cells Many Urine Crystals Negative Urine Bacteria Negative Urine Casts 0-2 coarse granular Urine Mucus Negative Urine Other Negative Ur Culture Indicated? No/sq. contamination Urine Glucose Negative 12/09/20 06:35 WBC 19.52 H RBC 3.81 L Hgb 11.7 Hct 34.6 L MCV 90.8 MCH 30.7 MCHC 33.8 RDW 14.0 Plt Count 293 MPV 10.3 Immature Gran % 0.0 Neutrophils % 89.0 Band Neutrophils % 1 Lymphocytes % 5.0 Monocytes % 5.0 Eosinophils % 0.0 Basophils % 0.0 Absolute Neutrophils 17.57 H Absolute Lymphocytes 0.98 L Absolute Monocytes 0.98 H Absolute Eosinophils 0.00 Absolute Basophils 0.00 RBC Morphology Normal Sodium Potassium Chloride Carbon Dioxide Anion Gap BUN Creatinine Estimated GFR/1.73 m2 Glucose Calcium Magnesium Urine Color Urine Clarity Urine pH Ur Specific [place] Urine Protein Urine Ketones Urine Blood Urine Nitrite Urine Bilirubin Urine Urobilinogen Ur Leukocyte Esterase Urine RBC Urine WBC Ur Epithelial Cells Urine Crystals Urine Bacteria Urine Casts Urine Mucus Urine Other Ur Culture Indicated? Urine Glucose
[2020-12-09 14:28] VITALS: PULSE 85; RESP 18; RESP 4; RESP 5; O2SAT 98
[2020-12-09] MEDS: Albuterol 2.5 MG/3 ML INH SOLN VIAL UPD (14:28)
[2020-12-09 15:34] VITALS: BP 122/80; PULSE 96; RESP 22; TEMP 37.7; O2SAT 95
[2020-12-09] MEDS: FLUCONAZOLE 200 MG/100 ML BAG 100 MG IVPB (16:07)
--- NOTE | 2020-12-09 18:51 | NUR.NOTE ---
Nursing Note: At 1800 on 12/09/20, following a dressing change at 1730, this RN notified the charge nurse about the moderate amount of purulent/sero-sanguineous drainage noted to be coming from the pt.'s midline abdominal incision and the pt.'s two right mid lateral abdominal incisions (where the two NAVEED drains are located). RN will reassess as necessary.
[2020-12-09 23:00] VITALS: BP 133/81; PULSE 84; RESP 19; TEMP 36.5; O2SAT 92
[2020-12-10] MEDS: ACETAMINOPHEN 1,000 MG/100 ML BTL 400 MG IVPB ×2 (01:17→20:46)
[2020-12-10] MEDS: POTASSIUM CHLORIDE/D5-0.45NACL 1,000 ML 125 MEQ IV (01:54)
[2020-12-10] MEDS: PIPERACILLIN/TAZO 3.375 GM in Normal Saline 50 ML IVPB ×4 (01:54→20:28)
[2020-12-10] MEDS: metroNIDAZOLE 500 MG TAB PO ×4 (04:21→22:47)
[2020-12-10 07:08] LABS: HCT 34.3 % (36.0-46.0); HGB 11.5 g/dL (11.2-15.7); MCH 30.3 pg (27.0-33.0); MCHC 33.5 % (32.0-36.0); MCV 90.5 fL (80-95); MPV 10.7 fL (8.0-11.0); Platelet Count 316 10^3/uL (130-400); RBC 3.79 10^6/uL (3.93-5.22); RDW-SD 46.5 fL; WBC 17.29 10^3/uL (4.4-10.8)
[2020-12-10 07:10] LABS: Anion Gap 7.2 mmol/L (3-11); BUN 4 mg/dL (7-18); CO2 25.8 mmol/L (21.0-32.0); CREATININE 0.7 mg/dL (0.55-1.02); Calcium 7.8 mg/dL (8.5-10.1); Chloride 109 mmol/L (98-107); Glucose 129 mg/dL (74-106); Sodium 142 mmol/L (136-145)
[2020-12-10 07:37] LABS: Absolute Lymphocyte Count 2.07 10^3/uL (1.2-3.4); Absolute Monocyte Count 0.86 10^3/uL (0.1-0.8); Absolute Neutrophil Count 14.18 10^3/uL (1.2-6.7); Bands % 4
[2020-12-10 07:38] LABS: Diff Comment Manual Differential; Metamyelocytes % 1; RBC Morphology Normal
[2020-12-10] MEDS: PANTOPRAZOLE 80 MG in Normal Saline 100 ML 10 MG IV ×2 (07:38→15:07)
[2020-12-10 07:54] VITALS: BP 136/80; PULSE 81; RESP 18; TEMP 36; O2SAT 96
--- NOTE | 2020-12-10 08:00 | DI.CT_ITS ---
Exam(s) CT ABDOMEN W EXAM: CT ABDOMEN W CLINICAL HISTORY: Rule out Abscess TECHNIQUE: Imaging Protocol: Axial computed tomography images with coronal and sagittal reformatted images were created and reviewed CONTRAST MATERIAL: Intravenous: Omnipaque 350 Contrast volume:100 mL Oral: No COMPARISON: CT CT ABDOMEN PELVIS W from 12/04/2020 FINDINGS: ABDOMEN: Lung Bases: There are bilateral pleural effusions. There is a small right and a small to moderate si ze left pleural effusion. Subjacent infiltrates are present which may represent atelectasis or pneum onia. The pulmonary arteries are not ideally opacified but there is a question of a filling defect i n a branch of the pulmonary artery to the left lower lobe. Liver: There is diffuse decreased attenuation of the liver. There is hepatomegaly. No measurable ma ss. Portal, Superior Mesenteric, and Splenic Veins: Unremarkable. Gallbladder and Biliary Tract: No cholelithiasis. Mild thickening of the wall of the gallbladder is seen. There is no biliary ductal dilatation. Pancreas: Normal density, no abnormal calcifications or inflammatory process. Spleen: There is fluid seen lateral to the spleen causing of mass effect. This may represent a subca psular hematoma it measures 12.2 x 4.1 x 8.2 cm. There are areas of decreased attenuation in the per iphery of the upper pole of the spleen and the lower pole of the spleen. These were not present on t he prior examination. Differential considerations include infarcts or abscesses. Adrenals: No masses seen. Kidneys: Normal size, contour and axis. No radiodense stones or obstructive uropathy. No masses seen. Abdominal Aorta: Abdominal portion non-dilated. Atherosclerosis. Bowel: No evidence of obstruction. There is mild wall thickening seen in loops of small bowel in the central abdomen. Peritoneal Cavity: There is a small to moderate amount of fluid in the left pericolic gutter and the left upper quadrant of the abdomen the fluid does not appear to be in capsulated. There is a small a mount of perihepatic fluid present. There is a small amount of fluid seen within the mesentery inclu ding a 3.3 x 2.1 cm fluid collection adjacent to the proximal jejunum in the left upper quadrant. Th ere does appear to be a thin wall surrounding the fluid collection and an abscess cannot be excluded. There is a drainage catheter seen in the right abdomen. There is a small amount of free air within the abdomen. Lymph Nodes: Within normal limits. Bones: Unremarkable. Soft Tissues: There is subcutaneous edema throughout the abdominal wall including fluid seen in the r ight lateral wall musculature. A midline surgical scar and skin lalit are present. IMPRESSION: 1. Bilateral pleural effusions and basilar atelectasis suspicious for pneumonia. 2. Status post abdominal surgery with midline abdominal scar and a right drainage catheter. 3. Free fluid in the abdomen. Question of an encapsulated fluid collection in the left abdomen adjac ent to the jejunum. This may represent an early abscess. 4. New hypodense areas within the spleen. These are nonspecific. Differential considerations includ e infarcts, abscesses or splenic masses. 5. Mild gallbladder wall thickening. Cholecystitis should be considered. No biliary ductal dilatati on. 6. Mild thickening of the wall of the proximal jejunum. This may represent a mild enteritis. 7. Tiny amount of free intra-abdominal air. 8. Diffuse subcutaneous edema. RADIATION DOSE DELIVERED: 766.31mGy.cm Total DLP DATA REPOSITORY: All CT scans at this facility are submitted to the National Radiology Data Registry (NRDR) Dose Index Registry (DIR) with the [employer] (ACR). RADIATION OPTIMIZATION: All CT scans at this facility use at least one of these dose optimization te chniques: automated exposure control; mA and/or kV adjustment per patient size (includes targeted exa ms where dose is matched to clinical indication); or iterative reconstruction.
[2020-12-10] MEDS: Potassium Chloride 20 MEQ TABCR PO (08:34)
[2020-12-10] MEDS: Heparin 5,000 UNITS/ML VIAL 5000 UNITS SC ×2 (08:34→20:28)
--- NOTE | 2020-12-10 09:55 | NS.NUTBLAN_ITS ---
Date of service: 12/10/20 Time of Service: 09:55 Nutritional Consult ASSESSMENT: 44 year old female admitted 12/04/20 with perforated gastric ulcer s/p repair. BMI indicates oveweight status. Estimated Needs: [id number] kcal, 70- 80 g protein. Currently following Full Liquid diet with 50% completion meeting about 50% of her macronutrient needs. Diet supplemented with ensure clear and banana flakes for additional calories/protein and soluble fiber. At risk for malnutrition in view >5 days not meet nutrient needs by mouth. NUTRITIONAL DIAGNOSIS: Moderate malnutrition in view of > 5 days with inadequate macronutrient intake INTERVENTION: advance diet as warranted supplement meal plan with ensure clear TID, banana flakes TID MONITORING AND EVALUATION: weight, po intake, labs. Time Spent in Nutritional Counseling and Treatment: 15
[2020-12-10] MEDS: Omnipaque 350 MG/ML 100 ML BTL IJ (10:07)
[2020-12-10] MEDS: Normal Saline - Diluent 50 ML VIAL IV (10:08)
[2020-12-10] MEDS: POTASSIUM CHLORIDE 10 MEQ/100 ML BAG 100 MEQ IVPB ×2 (11:13→14:57)
[2020-12-10 11:45] LABS: C Diff PCR Negative (Negative)
[2020-12-10] MEDS: HYDROmorphone 2 MG/ML VIAL 1 MG IVP ×3 (15:06→23:04)
[2020-12-10] MEDS: Normal Saline Flush 10 ML SYR IVP ×5 (15:06→23:05)
[2020-12-10 15:38] VITALS: BP 150/52; PULSE 83; RESP 18; TEMP 37; O2SAT 96
--- NOTE | 2020-12-10 15:43 | CMPROGNOTE_ITS ---
Care Management Progress Note S/O: Sully remains pleasant in interaction, she continues to require acute care and close monitoring post surgically; surgery and hospitalist following. CM continues to follow as well. Unclear discharge plan at this time. A: 44 year old female admitted to [facility] with perforated gastric ulcer P: Anticipate Sully will return home when ready per MD. She will follow up with her PCP and plan of care as prescribed. She will transport via private vehicle with her significant other, Eric.
[2020-12-10] MEDS: FLUCONAZOLE 200 MG/100 ML BAG 100 MG IVPB (17:01)
--- NOTE | 2020-12-10 17:48 | W.PM.PROGNOT ---
Date of Service Date of service: 12/10/20 Time of Service: 08:00 Assessment and Plan Assessment and plan (1) Perforated abdominal viscus: Status: Acute Assessment and plan: Perforated gastric ulcer s/p modified ramón patch repair. Mounika pus draining from incision site. Concern for possible intra-abdominal abscess. Will order abdominal CT scan with oral contrast. WBC trending downward. Full liquid diet Continue IV hydration Pain control Zosyn and flagyl Fluconazole Encouraged use of incentive spirometer and ambulation as tolerated. Subjective Subjective Interval history since last seen: Patient was seen this morning. She was reporting that she wasn't feeling as well today. She continues to have abdominal pain. She denies any fecal incontinence over night. Exam Const General: cooperative, comfortable and acute distress mild Orientation: alert and oriented x3 Resp Effort & Inspection: normal respiratory effort, no audible wheezes and no cough GI Palpation: soft, no guarding and tender in the LLQ and in the LUQ Rectal Exam - female: abnormal sphincter tone Other: NAVEED drains in place (superior) with minimal serosanginous drainage (inferior) serous fluid Midline incision- edges well approximated with lalit in place. With palpation to the surrounding soft tissue of the incision, caused mounika pus to drain from the incision site. Objective Last Vital Signs Temp 37.0 C 12/10/20 15:38 Pulse 83 12/10/20 15:38 Resp 18 12/10/20 15:38 BP 150/52 H 12/10/20 15:38 Pulse Ox 96 12/10/20 15:38 Laboratory Results - last 24 hr 12/10/20 12/10/20 12/10/20 06:32 06:32 06:32 WBC 17.29 H RBC 3.79 L Hgb 11.5 Hct 34.3 L MCV 90.5 MCH 30.3 MCHC 33.5 RDW 14.0 Plt Count 316 MPV 10.7 Immature Gran % 0.0 Neutrophils % 78.0 Band Neutrophils % 4 Lymphocytes % 12.0 Monocytes % 5.0 Eosinophils % 0.0 Basophils % 0.0 Metamyelocytes % 1 Absolute Neutrophils 14.18 H Absolute Lymphocytes 2.07 Absolute Monocytes 0.86 H Absolute Eosinophils 0.00 Absolute Basophils 0.00 RBC Morphology Normal Sodium 142 Potassium 3.0 L Chloride 109 H Carbon Dioxide 25.8 Anion Gap 7.2 BUN 4 L Creatinine 0.7 Estimated GFR/1.73 m2 >= 60.00 Glucose 129 H Calcium 7.8 L Magnesium 2.0 Stl C.difficile Tox PCR 12/10/20 10:45 WBC RBC Hgb Hct MCV MCH MCHC RDW Plt Count MPV Immature Gran % Neutrophils % Band Neutrophils % Lymphocytes % Monocytes % Eosinophils % Basophils % Metamyelocytes % Absolute Neutrophils Absolute Lymphocytes Absolute Monocytes Absolute Eosinophils Absolute Basophils RBC Morphology Sodium Potassium Chloride Carbon Dioxide Anion Gap BUN Creatinine Estimated GFR/1.73 m2 Glucose Calcium Magnesium Stl C.difficile Tox PCR Negative
--- NOTE | 2020-12-10 19:13 | NUR.NOTE ---
Nursing Note: Dr. Beckford came in to see the patient today, she removed the bandage that was on her abdomen, removed the lalit from her incision, asked me to go get some gauze when I came back in the room the bottom half inch of the incision was opened up. The doctor put 4x4 gauze over it and ABD pad and asked me to tape it down and left the room. I asked the patient about the opening and she said that the doctor opened it back up when I was out of the room. Charge nurse notified, that during hand off that the whole incision is now open. Charge nurse to notify the provider.
[2020-12-10 20:03] VITALS: BP 136/77; PULSE 89; RESP 20; TEMP 37.5; O2SAT 96
[2020-12-10 23:52] VITALS: BP 121/71; PULSE 82; RESP 18; TEMP 36.7; O2SAT 95
[2020-12-11] MEDS: POTASSIUM CHLORIDE/D5-0.45NACL 1,000 ML 125 MEQ IV ×3 (01:15→20:09)
[2020-12-11] MEDS: PIPERACILLIN/TAZO 3.375 GM in Normal Saline 50 ML IVPB ×4 (01:15→20:09)
[2020-12-11] MEDS: PANTOPRAZOLE 80 MG in Normal Saline 100 ML 10 MG IV ×2 (01:16→12:12)
[2020-12-11] MEDS: Normal Saline Flush 10 ML SYR IVP ×5 (01:16→23:16)
[2020-12-11] MEDS: HYDROmorphone 2 MG/ML VIAL 1 MG IVP ×3 (01:44→10:14)
[2020-12-11] MEDS: metroNIDAZOLE 500 MG TAB PO ×4 (05:08→23:13)
[2020-12-11 07:09] VITALS: BP 135/77; PULSE 89; RESP 19; TEMP 36.5; O2SAT 95
[2020-12-11] MEDS: Normal Saline - Diluent 50 ML VIAL IV ×2 (07:24→07:33)
[2020-12-11] MEDS: Omnipaque 350 MG/ML 100 ML BTL 74 ML IJ (07:32)
[2020-12-11] MEDS: Normal Saline Flush 10 ML SYR 20 ML IVP ×2 (07:34→20:09)
--- NOTE | 2020-12-11 07:50 | DI.CT_ITS ---
Exam(s) CT CHEST PE CTA EXAM: CT CHEST PE CTA CLINICAL HISTORY: Possible pulmonary embolism noted on CT abd. TECHNIQUE: Imaging Protocol: CT angiography of the chest was performed using pulmonary embolus mary col. Multi planar reconstructions were performed. CONTRAST MATERIAL: Intravenous: Omnipaque 350 Contrast volume: 100 cc COMPARISON: CT CT ABDOMEN W from 12/10/2020 FINDINGS: CHEST: PULMONARY ARTERIES: There are no intraluminal filling defects to suggest acute pulmonary emboli. LUNGS: None there are bilateral pleural effusions and volume loss in basal segments of both lower lob es.. The left pleural effusion is moderate size. This is partially loculated. The right pleural ef fusion is smaller. MEDIASTINUM: There is no hilar nor mediastinal adenopathy. Visualized thyroid unremarkable.There is a left PICC line. Its distal tip is in the lower SVC CARDIAC: Mild cardiomegaly. No pericardial effusion.Caliber of the thoracic aorta is within normal l imits. No prominent shift of the interventricular septum. PARTIALLY VISUALIZED UPPERMOST ABDOMEN: Hepatic steatosis. In there is also a prominent subphrenic l eft upper quadrant collection intimately related to the spleen. This is again noted to significantly indent the spleen. It contains a few air bubbles and may represent abscess. Hepatic steatosis also noted.. OSSEOUS: No significant osseous lesions.. IMPRESSION: 1. No evidence of acute pulmonary emboli..However, there is significant volume loss in basal segments of both lower lobes and there are bilateral pleural effusions, left larger than right and the left a ppears somewhat loculated. 2. In addition, there is a prominent abnormal fluid collection in the left upper quadrant of the abdo men subjacent to the hemidiaphragm in intimately related to the spleen (which is compressed by this f luid collection). Although the fluid is relatively homogeneous, does contain a few gas bubbles and t herefore suspicious for purulent fluid- abcess. This abnormal left upper quadrant fluid collection m easures approximately 12 cm AP by 7 cm wide by at least 12 cm craniocaudal measurement.. This is loc ated just above the slightly lower left flank fluid collection evident on yesterday's abdomen CT scan and is probably part of the same affection is process. RADIATION DOSE DELIVERED: 508.34mGy.cm Total DLP DATA REPOSITORY: All CT scans at this facility are submitted to the National Radiology Data Registry (NRDR) Dose Index Registry (DIR) with the [employer] ([employer]). RADIATION OPTIMIZATION: All CT scans at this facility use at least one of these dose optimization te chniques: automated exposure control; mA and/or kV adjustment per patient size (includes targeted exa ms where dose is matched to clinical indication); or iterative reconstruction.
[2020-12-11 07:58] LABS: HCT 32.2 % (36.0-46.0); HGB 11.1 g/dL (11.2-15.7); MCH 31.2 pg (27.0-33.0); MCHC 34.5 % (32.0-36.0); MCV 90.4 fL (80-95); MPV 10.8 fL (8.0-11.0); Nucleated RBC 0 %; Platelet Count 343 10^3/uL (130-400); RBC 3.56 10^6/uL (3.93-5.22); RDW 14.2 % (11.7-14.6); RDW-SD 47.5 fL; WBC 17.42 10^3/uL (4.4-10.8)
[2020-12-11 07:59] LABS: Absolute Eosinophil Count 0.17 10^3/uL (0.0-0.7)
--- NOTE | 2020-12-11 08:03 | DI.VRAD_ITS ---
PROCEDURE INFORMATION: Exam: CTA Chest With Contrast Exam date and time: 12/11/2020 12:00 AM Age: 44 years old Clinical indication: Shortness of breath; Patient HX: Possible pulmonary embolism noted on CT abd. TECHNIQUE: Imaging protocol: Computed tomographic angiography of the chest with contrast. 3D rendering (Not supervised by radiologist): MIP and/or 3D reconstructed images were created by the technologist. Radiation optimization: All CT scans at this facility use at least one of these dose optimization techniques: automated exposure control; mA and/or kV adjustment per patient size (includes targeted exams where dose is matched to clinical indication); or iterative reconstruction. Contrast material: OMNI-PAQUE 350; Contrast volume: 74 ml; Contrast route: INTRAVENOUS (IV); COMPARISON: 1. CR XR CHEST 2V PA LATERAL 12/08/2020 4:[address] ABDOMEN W 12/10/2020 9:30:15 AM FINDINGS: Tubes, catheters and devices: Left arm PICC present with the tip in the superior vena cava. Pulmonary arteries: No sign of acute pulmonary embolism. Slightly prominent left hilar lymph node simulating a filling defect in the left lower lobe pulmonary artery on the prior CT ABDOMEN. Aorta: No thoracic aortic aneurysm or dissection when allowing for pulsation artifact. Lungs: Bilateral lower lobe compressive in dependent atelectasis. Mild bilateral paraseptal emphysema. Pleural spaces: Bilateral pleural effusions, larger on the left. Trace encapsulated fluid in the left major fissure. Heart: The heart is not enlarged. No pericardial effusion. Lymph nodes: No pathologically enlarged lymph nodes. Spleen: Previously demonstrated left subphrenic and perisplenic fluid collection with gas bubbles. Bones/joints: Mild multilevel disc degeneration in the thoracic spine. Soft tissues: No acute soft tissue abnormality. IMPRESSION: No sign of acute pulmonary embolism. Dictated and Authenticated by: Jc Menchaca MD. Ordering:NICKIE Bennett MD
[2020-12-11 08:07] LABS: Anion Gap 5.2 mmol/L (3-11); BUN 2 mg/dL (7-18); CO2 27.8 mmol/L (21.0-32.0); CREATININE 0.7 mg/dL (0.55-1.02); Calcium 7.6 mg/dL (8.5-10.1); Chloride 108 mmol/L (98-107); Glucose 113 mg/dL (74-106); Magnesium 1.8 mg/dL (1.8-2.4); Sodium 141 mmol/L (136-145)
[2020-12-11] MEDS: Potassium Chloride Liquid 20 MEQ PKT PO (08:11)
[2020-12-11] MEDS: Protein Nutritional Supplement 16 GM 1 OUNCE PACKET PO ×3 (08:11→20:08)
[2020-12-11] MEDS: Heparin 5,000 UNITS/ML VIAL 5000 UNITS SC (08:12)
[2020-12-11 08:18] LABS: Absolute Lymphocyte Count 1.39 10^3/uL (1.2-3.4); Absolute Neutrophil Count 14.46 10^3/uL (1.2-6.7)
[2020-12-11 08:19] LABS: Absolute Basophil Count 0.17 10^3/uL (0.0-0.2); Absolute Monocyte Count 1.22 10^3/uL (0.1-0.8); Diff Comment Manual Differential; RBC Morphology Normal
--- NOTE | 2020-12-11 10:44 | PDOC.CMPRO ---
Care Management Progress Note S/O: Sully remains pleasant in interaction, she continues to require acute care and close monitoring post surgically; surgery and hospitalist following. CM continues to follow as well. Unclear discharge plan at this time. A: 44 year old female admitted to [facility] with perforated gastric ulcer P: Anticipate Sully will return home when ready per MD. She will follow up with her PCP and plan of care as prescribed. She will transport via private vehicle with her significant other, Eric.
--- NOTE | 2020-12-11 11:24 | W.PM.PROGNOT ---
Documented by User: LORENA Cadet 12/11/20 11:29 Date of Service Date of service: 12/11/20 Time of Service: 09:30 Assessment and Plan Assessment and plan (1) Perforated abdominal viscus: Status: Acute Assessment and plan: Perforated gastric ulcer s/p modified ramón patch repair. Woudn vac in place over incision site. CT scan yesterday showed multiple abscess in the abdomen. Dr. Beckford is going to call/speak with interventional radiology at [facility]. Full liquid diet Continue IV hydration Pain control Zosyn and flagyl Fluconazole Encouraged use of incentive spirometer and ambulation as tolerated. Subjective Subjective Interval history since last seen: Arrived with patient eating a full liquid diet. She reports that she continues to feel exhausted. She denies any fecal incontinence. Exam Const General: cooperative, healthy appearing and comfortable Orientation: alert and oriented x3 Resp Effort & Inspection: normal respiratory effort, no audible wheezes and no cough GI Palpation: soft, no guarding and tender in the LLQ and in the LUQ Objective Last Vital Signs Temp 36.5 C 12/11/20 07:09 Pulse 89 12/11/20 07:09 Resp 19 12/11/20 07:09 BP 135/77 12/11/20 07:09 Pulse Ox 95 12/11/20 07:09 Laboratory Results - last 24 hr 12/10/20 12/11/20 12/11/20 10:45 06:50 06:50 WBC RBC Hgb Hct MCV MCH MCHC RDW Plt Count MPV Immature Gran % Neutrophils % Lymphocytes % Monocytes % Eosinophils % Basophils % Nucleated RBC % Absolute Neutrophils Absolute Lymphocytes Absolute Monocytes Absolute Eosinophils Absolute Basophils RBC Morphology Sodium 141 Potassium 3.0 L Chloride 108 H Carbon Dioxide 27.8 Anion Gap 5.2 BUN 2 L Creatinine 0.7 Estimated GFR/1.73 m2 >= 60.00 Glucose 113 H Calcium 7.6 L Magnesium 1.8 Stl C.difficile Tox PCR Negative 12/11/20 06:50 WBC 17.42 H RBC 3.56 L Hgb 11.1 L Hct 32.2 L MCV 90.4 MCH 31.2 MCHC 34.5 RDW 14.2 Plt Count 343 MPV 10.8 Immature Gran % 0.0 Neutrophils % 83.0 Lymphocytes % 8.0 Monocytes % 7.0 Eosinophils % 1.0 Basophils % 1.0 Nucleated RBC % 0 Absolute Neutrophils 14.46 H Absolute Lymphocytes 1.39 Absolute Monocytes 1.22 H Absolute Eosinophils 0.17 Absolute Basophils 0.17 RBC Morphology Normal Sodium Potassium Chloride Carbon Dioxide Anion Gap BUN Creatinine Estimated GFR/1.73 m2 Glucose Calcium Magnesium Stl C.difficile Tox PCR Documented by User: Lauren Beckford, DO 12/11/20 23:07 Assessment and Plan Assessment and plan (1) Perforated abdominal viscus: Status: Acute (2) Abscess, abdomen: Status: Acute Assessment and plan: Patient has developed to fluid collections behind the spleen and one behind Morison's pouch. I did review her CT today with the body imaging at [facility] with Dr. Mccall. He does feel that he can get to the collections for sure possibly a third she would have multiple different drains. Arrangements have been made for this to occur on . [facility] will collect fluid and sent for culture. She is on Zosyn and Diflucan. Day 7 for each of these medications. She continues to have voluminous diarrhea. It is C. difficile negative. Most likely due to paucity of normal jennifer. We will start her on cholestyramine. Electrolytes were adjusted. She continues to have a poor appetite. That there might be a PE that was seen on the CT the abdomen that was done. A dedicated PE protocol was done today and shows no PE. She needs to be n.p.o. after midnight. No heparin is held. Transfer paperwork and arrangements have been made to have Sivan transfer her down to [facility] for down and back for drain placement. Most of the fluid for culture. All questions answered. Patient is stable for the procedure 35 minutes was spent with the patient and in coordinating care for drain placement
[2020-12-11 15:25] VITALS: BP 149/78; PULSE 106; RESP 16; TEMP 37.3; O2SAT 96
[2020-12-11] MEDS: FLUCONAZOLE 200 MG/100 ML BAG 100 MG IVPB (16:57)
[2020-12-11] MEDS: oxyCODONE 5 MG TAB PO ×2 (16:57→23:11)
[2020-12-11] MEDS: Cholestyramine/Aspartame PKT 1 EACH PO (20:09)
[2020-12-11 23:47] VITALS: BP 136/77; PULSE 95; RESP 20; TEMP 36.9; O2SAT 95
[2020-12-12] MEDS: ACETAMINOPHEN 1,000 MG/100 ML BTL 400 MG IVPB ×3 (00:33→18:04)
[2020-12-12] MEDS: PIPERACILLIN/TAZO 3.375 GM in Normal Saline 50 ML IVPB ×3 (03:30→20:49)
[2020-12-12] MEDS: Normal Saline Flush 10 ML SYR IVP (03:31)
[2020-12-12] MEDS: POTASSIUM CHLORIDE/D5-0.45NACL 1,000 ML 125 MEQ IV ×2 (04:55→18:16)
[2020-12-12 07:11] LABS: Abs Immature Grans 0.16 10^3/uL (0.0-0.06); HCT 34.2 % (36.0-46.0); HGB 11.4 g/dL (11.2-15.7); MCH 30.3 pg (27.0-33.0); MCHC 33.3 % (32.0-36.0); MPV 10.1 fL (8.0-11.0); Nucleated RBC 0 %; Platelet Count 341 10^3/uL (130-400); RBC 3.76 10^6/uL (3.93-5.22); RDW 14.2 % (11.7-14.6); RDW-SD 47.3 fL; WBC 18.64 10^3/uL (4.4-10.8)
[2020-12-12 07:23] LABS: Anion Gap 9.7 mmol/L (3-11); BUN 4 mg/dL (7-18); CO2 24.3 mmol/L (21.0-32.0); CREATININE 0.7 mg/dL (0.55-1.02); Chloride 109 mmol/L (98-107); Glucose 121 mg/dL (74-106); Sodium 143 mmol/L (136-145)
[2020-12-12 07:24] LABS: Magnesium 1.9 mg/dL (1.8-2.4)
[2020-12-12 07:29] LABS: Potassium 2.9 mmol/L (3.5-5.1)
[2020-12-12 07:34] LABS: Absolute Neutrophil Count 15.66 10^3/uL (1.2-6.7)
[2020-12-12 07:35] LABS: Absolute Lymphocyte Count 2.05 10^3/uL (1.2-3.4); Absolute Monocyte Count 0.93 10^3/uL (0.1-0.8); Atypical Lymphocytes % 4; Diff Comment Manual Differential; RBC Morphology Normal
[2020-12-12 08:10] VITALS: BP 150/82; PULSE 90; RESP 18; TEMP 36.5; O2SAT 97
--- NOTE | 2020-12-12 08:42 | W.PM.PROGNOT ---
Date of Service Date of service: 12/12/20 Time of Service: 08:42 Assessment and Plan Assessment and plan (1) Abscess, abdomen: Status: Acute (2) Asthma: Status: Chronic (3) Acute hypokalemia: Status: Acute (4) Perforated abdominal viscus: Status: Acute Assessment and plan: Day eight of Zosyn. She continues to have diarrhea and high kalemia. Twice daily cholestyramine. Potassium adjusted. She continues to have elevated white count despite aggressive antibiotic therapy. She is going for drain placement today of fluid collections. I discussed the procedure with her today. Lovenox has been held. She has been n.p.o. She is stable for procedure. Traveling paperwork completed (5) Smoker: Status: Acute (6) Leukocytosis: Status: Acute Qualifiers: Eosinophilia type: in diseases classified elsewhere (7) Pleural effusion, left: Status: Acute Assessment and plan: Possible thoracentesis on Wednesday for fluid removal. Subjective Subjective Interval history since last seen: Pt is doing well. no headaches. No CP or SOB. no productive cough. no dysuria. no leg pain or swelling. Patient complains of not being able to take a deep breath. She is not coughing anything up. She denies any dysuria. She still having multiple bowel movements. Her C. difficile was negative. Her potassium has been quite low. This will be replaced today. She is not having significant pain. She has minimal appetite. No fever or chills. Essentially no changes overnight. We reviewed her procedure today Exam Const Other: no thrush or jaundice Chest Chest: normal inspection of the chest Resp Effort & Inspection: normal respiratory effort and able to speak in complete sentences Other: Decreased breath sounds left base. Otherwise clear Cardio Rate: regular rate Rhythm: regular rhythm GI Palpation: soft Auscultation: normal bowel sounds Other: Wound VAC in place. Extrem General: no clubbing, cyanosis or edema Objective Last Vital Signs Temp 36.5 C 12/12/20 08:10 Pulse 90 12/12/20 08:10 Resp 18 12/12/20 08:10 BP 150/82 H 12/12/20 08:10 Pulse Ox 97 12/12/20 08:10 Laboratory Results - last 24 hr 12/12/20 12/12/20 12/12/20 06:59 06:59 06:59 WBC 18.64 H RBC 3.76 L Hgb 11.4 Hct 34.2 L MCV 91.0 MCH 30.3 MCHC 33.3 RDW 14.2 Plt Count 341 MPV 10.1 Immature Gran % 0.0 Neutrophils % 84.0 Lymphocytes % 7.0 Atypical Lymphs % 4 Monocytes % 5.0 Eosinophils % 0.0 Basophils % 0.0 Nucleated RBC % 0 Absolute Neutrophils 15.66 H Absolute Lymphocytes 2.05 Absolute Monocytes 0.93 H Absolute Eosinophils 0.00 Absolute Basophils 0.00 RBC Morphology Normal Sodium 143 Potassium 2.9 L Chloride 109 H Carbon Dioxide 24.3 Anion Gap 9.7 BUN 4 L Creatinine 0.7 Estimated GFR/1.73 m2 >= 60.00 Glucose 121 H Calcium 8.0 L Magnesium 1.9
[2020-12-12] MEDS: Pantoprazole 40 MG VIAL IVP ×2 (09:23→20:49)
[2020-12-12] MEDS: HYDROmorphone 2 MG/ML VIAL 1 MG IVP ×2 (09:23→18:03)
[2020-12-12] MEDS: POTASSIUM CHLORIDE 10 MEQ/100 ML BAG 100 MEQ IVPB (09:23)
[2020-12-12] MEDS: Normal Saline Flush 10 ML SYR 20 ML IVP ×2 (09:23→20:50)
--- NOTE | 2020-12-12 10:21 | CMPROGNOTE_ITS ---
Care Management Progress Note S/O: Sully will have a down and back to [facility] [place] for drain placement today, she was being transferred to the stretcher this morning when CM attempted to see her. CM continues to follow. A: 87 year old admitted for perforated appendicitis on 12/08/20. P: Sully will go down and back to [facility] [place] to Interventional Radiology for drain placement today. CM continues to follow.
--- NOTE | 2020-12-12 10:21 | PDOC.CMPRO ---
Care Management Progress Note S/O: Sully will have a down and back to [facility] to IR for drain placement today, she was being transferred to the stretcher this morning when CM attempted to see her. CM continues to follow. A: 87 year old admitted for perforated appendicitis on 12/08/20. P: Sully will go down and back to [facility] to Interventional Radiology for drain placement today. CM continues to follow.
[2020-12-12 18:00] VITALS: BP 158/80; PULSE 99; RESP 18; TEMP 36.5; O2SAT 96
[2020-12-12] MEDS: FLUCONAZOLE 200 MG/100 ML BAG 100 MG IVPB (18:03)
[2020-12-12] MEDS: Protein Nutritional Supplement 16 GM 1 OUNCE PACKET PO (20:50)
[2020-12-12 23:26] VITALS: BP 128/74; PULSE 82; RESP 18; TEMP 36.3; O2SAT 97
[2020-12-13] MEDS: HYDROmorphone 2 MG/ML VIAL 1 MG IVP ×5 (01:23→19:55)
[2020-12-13] MEDS: Normal Saline Flush 10 ML SYR IVP ×4 (01:23→18:49)
[2020-12-13] MEDS: ACETAMINOPHEN 1,000 MG/100 ML BTL 400 MG IVPB ×3 (02:08→18:47)
[2020-12-13] MEDS: PIPERACILLIN/TAZO 3.375 GM in Normal Saline 50 ML IVPB ×3 (03:20→13:51)
[2020-12-13] MEDS: POTASSIUM CHLORIDE/D5-0.45NACL 1,000 ML 125 MEQ IV ×3 (03:37→22:22)
[2020-12-13 07:00] LABS: Abs Immature Grans 0.12 10^3/uL (0.0-0.06); Absolute Basophil Count 0.06 10^3/uL (0.0-0.2); Absolute Eosinophil Count 0.11 10^3/uL (0.0-0.7); Absolute Lymphocyte Count 2.08 10^3/uL (1.2-3.4); Absolute Monocyte Count 0.96 10^3/uL (0.1-0.8); Basophils % 0.4; Eosinophils % 0.7; HCT 31.7 % (36.0-46.0); HGB 10.5 g/dL (11.2-15.7); Immature Grans % 0.8; MCH 30.7 pg (27.0-33.0); MCHC 33.1 % (32.0-36.0); MCV 92.7 fL (80-95); MPV 10.5 fL (8.0-11.0); Neutrophils % 79.1; Nucleated RBC 0 %; Platelet Count 375 10^3/uL (130-400); RBC 3.42 10^6/uL (3.93-5.22); RDW 14.6 % (11.7-14.6); RDW-SD 49.3 fL
[2020-12-13 07:04] LABS: Absolute Neutrophil Count 12.66 10^3/uL (1.2-6.7)
[2020-12-13 07:09] LABS: Anion Gap 10.3 mmol/L (3-11); BUN 5 mg/dL (7-18); CO2 24.7 mmol/L (21.0-32.0); CREATININE 0.7 mg/dL (0.55-1.02); Calcium 7.6 mg/dL (8.5-10.1); Chloride 108 mmol/L (98-107); Glucose 97 mg/dL (74-106); Potassium 3.1 mmol/L (3.5-5.1); Sodium 143 mmol/L (136-145)
[2020-12-13 07:35] LABS: Magnesium 1.8 mg/dL (1.8-2.4)
[2020-12-13] MEDS: Normal Saline Flush 10 ML SYR 20 ML IVP ×2 (08:17→19:55)
[2020-12-13] MEDS: Potassium Chloride Liquid 20 MEQ PKT PO (08:17)
[2020-12-13] MEDS: Protein Nutritional Supplement 16 GM 1 OUNCE PACKET PO ×3 (08:17→19:54)
[2020-12-13 08:29] VITALS: BP 151/75; PULSE 83; RESP 18; TEMP 36.6; O2SAT 96
[2020-12-13] MEDS: Pantoprazole 40 MG VIAL IVP ×2 (09:04→19:54)
[2020-12-13] MEDS: Cholestyramine/Aspartame PKT 1 EACH PO ×2 (10:19→18:47)
[2020-12-13] MEDS: Potassium Chloride 20 MEQ TABCR 40 MEQ PO (10:54)
--- NOTE | 2020-12-13 16:28 | PDOC.CMPRO ---
Care Management Progress Note S/O: Sully remains inpatient with drains placed [place] [facility] [place]. No updates from Surgeons at time of documentation re: discharge or treatment plan. CM continues to follow. A: 87 year old admitted for perforated appendicitis on 12/08/20. P: Sully remains inpatient; undetermined discharge plan or course of treatment; awaiting updates from surgery. CM continues to follow.
[2020-12-13] MEDS: IMIPENEM/CILASTATIN 500 MG in Normal Saline 100 ML 200 MG IVPB ×2 (18:48→23:37)
[2020-12-13 19:43] VITALS: BP 150/84; PULSE 81; RESP 18; TEMP 37.1; O2SAT 97
[2020-12-13] MEDS: FLUCONAZOLE 200 MG/100 ML BAG 100 MG IVPB (19:55)
--- NOTE | 2020-12-13 21:08 | W.PM.PROGNOT ---
Date of Service Date of service: 12/13/20 Time of Service: 13:20 Assessment and Plan Assessment and plan (1) Abscess, abdomen: Status: Acute Assessment and plan: s/p IR drainage [place] [facility] [place] follow cultures and sensitivities (2) Asthma: Status: Chronic (3) Acute hypokalemia: Status: Acute Assessment and plan: replete as necessary (4) Perforated abdominal viscus: Status: Acute (5) Smoker: Status: Acute (6) Leukocytosis: Status: Acute Assessment and plan: Wound culture demonstrated Enterobacter. Zosyn changed to imipenem due to sensitivities. Qualifiers: Eosinophilia type: in diseases classified elsewhere (7) Pleural effusion, left: Status: Acute Assessment and plan: Possible thoracentesis on Wednesday for fluid removal. Subjective Subjective Patient reports: still having pain, tolerating liquids well and diarrhea Interval history since last seen: She underwent IR placement of 3 drains yesterday at [facility] [place], the most significant was in the subsplenic area, which drained 380cc. She has been ambulating. Still having multiple loose stools on cholestyramine and banana flakes. Exam Const General: cooperative and comfortable Orientation: alert, awake and oriented x3 Resp Effort & Inspection: normal respiratory effort and able to speak in complete sentences Auscultation: clear to auscultation bilaterally Cardio Rate: regular rate Rhythm: regular rhythm Heart Sounds: S1 normal and S2 normal GI Inspection: distended Palpation: soft, no guarding, rigid and tender (jeff-incisional, and jeff-drain tenderness) Auscultation: hyperactive bowel sounds Other: upper midline VAC was changed; base clean and granulating well 2 surgical drains in right kassie-abdomen; 3 IR drains placed in right abdomen Skin Wounds: wounds noted Extrem General: no calf tenderness Psych Appearance: grossly normal Attitude: cooperative Thought Content: normal Objective Last Vital Signs Temp 98.8 F 12/13/20 19:43 Pulse 81 12/13/20 19:43 Resp 18 12/13/20 19:43 BP 150/84 H 12/13/20 19:43 Pulse Ox 97 12/13/20 19:43 Laboratory Results - last 24 hr 12/13/20 12/13/20 12/13/20 06:15 06:15 06:15 WBC 16.00 H RBC 3.42 L Hgb 10.5 L Hct 31.7 L MCV 92.7 MCH 30.7 MCHC 33.1 RDW 14.6 Plt Count 375 MPV 10.5 Immature Gran % 0.8 Neutrophils % 79.1 Lymphocytes % 13.0 Monocytes % 6.0 Eosinophils % 0.7 Basophils % 0.4 Nucleated RBC % 0 Absolute Neutrophils 12.66 H Absolute Lymphocytes 2.08 Absolute Monocytes 0.96 H Absolute Eosinophils 0.11 Absolute Basophils 0.06 Sodium 143 Potassium 3.1 L Chloride 108 H Carbon Dioxide 24.7 Anion Gap 10.3 BUN 5 L Creatinine 0.7 Estimated GFR/1.73 m2 >= 60.00 Glucose 97 Calcium 7.6 L Magnesium 1.8
[2020-12-14 00:07] VITALS: BP 148/80; PULSE 78; RESP 17; TEMP 36.8; O2SAT 97
[2020-12-14] MEDS: Normal Saline Flush 10 ML SYR IVP ×7 (00:08→20:04)
[2020-12-14] MEDS: HYDROmorphone 2 MG/ML VIAL 1 MG IVP ×5 (00:08→20:04)
[2020-12-14] MEDS: ACETAMINOPHEN 1,000 MG/100 ML BTL 400 MG IVPB ×3 (01:46→18:40)
[2020-12-14] MEDS: IMIPENEM/CILASTATIN 500 MG in Normal Saline 100 ML 200 MG IVPB ×4 (05:49→23:55)
[2020-12-14] MEDS: POTASSIUM CHLORIDE/D5-0.45NACL 1,000 ML 125 MEQ IV ×3 (06:54→23:53)
[2020-12-14 07:26] VITALS: BP 153/81; PULSE 82; RESP 17; TEMP 36.7; O2SAT 97
[2020-12-14 07:28] LABS: Abs Immature Grans 0.05 10^3/uL (0.0-0.06); Absolute Basophil Count 0.03 10^3/uL (0.0-0.2); Absolute Eosinophil Count 0.09 10^3/uL (0.0-0.7); Absolute Lymphocyte Count 1.28 10^3/uL (1.2-3.4); Absolute Monocyte Count 0.68 10^3/uL (0.1-0.8); Absolute Neutrophil Count 9.04 10^3/uL (1.2-6.7); Basophils % 0.3; Eosinophils % 0.8; Immature Grans % 0.4; Lymphocytes % 11.5; MCHC 32.1 % (32.0-36.0); MCV 96.5 fL (80-95); MPV 10.4 fL (8.0-11.0); Monocytes % 6.1; Neutrophils % 80.9; Nucleated RBC 0 %; Platelet Count 326 10^3/uL (130-400); RBC 2.55 10^6/uL (3.93-5.22); RDW 15.4 % (11.7-14.6); RDW-SD 53.9 fL; WBC 11.17 10^3/uL (4.4-10.8)
[2020-12-14 07:35] LABS: Anion Gap 8.5 mmol/L (3-11); BUN 4 mg/dL (7-18); CO2 18.5 mmol/L (21.0-32.0); CREATININE 0.8 mg/dL (0.55-1.02); Chloride 109 mmol/L (98-107); Sodium 136 mmol/L (136-145)
[2020-12-14 07:38] LABS: Calcium 5.8 mg/dL (8.5-10.1); Glucose 689 mg/dL (74-106)
[2020-12-14 07:39] LABS: Potassium 6.1 mmol/L (3.5-5.1)
[2020-12-14 07:40] LABS: HCT 24.6 % (36.0-46.0); HGB 7.9 g/dL (11.2-15.7)
[2020-12-14 08:12] LABS: Abs Immature Grans 0.09 10^3/uL (0.0-0.06); Absolute Basophil Count 0.06 10^3/uL (0.0-0.2); Absolute Eosinophil Count 0.08 10^3/uL (0.0-0.7); Absolute Monocyte Count 0.98 10^3/uL (0.1-0.8); Basophils % 0.4; Eosinophils % 0.5; HCT 33.7 % (36.0-46.0); Immature Grans % 0.6; Lymphocytes % 12.5; MCH 30.7 pg (27.0-33.0); MCHC 32.6 % (32.0-36.0); MCV 94.1 fL (80-95); Monocytes % 6.2; Neutrophils % 79.8; Nucleated RBC 0 %; Platelet Count 439 10^3/uL (130-400); RBC 3.58 10^6/uL (3.93-5.22); RDW 14.8 % (11.7-14.6); RDW-SD 50.7 fL; WBC 15.81 10^3/uL (4.4-10.8)
[2020-12-14 08:15] LABS: Absolute Lymphocyte Count 1.98 10^3/uL (1.2-3.4); Absolute Neutrophil Count 12.62 10^3/uL (1.2-6.7)
[2020-12-14 08:23] LABS: Magnesium 1.9 mg/dL (1.8-2.4)
[2020-12-14 08:24] LABS: ALT 14 U/L (14-59); AST 15 U/L (15-37); Albumin 1.4 g/dL (3.4-5.0); Alkaline Phosphatase 72 U/L (46-116); Anion Gap 8.8 mmol/L (3-11); BUN 4 mg/dL (7-18); Bilirubin, Total 0.3 mg/dL (0.2-1.0); CO2 25.2 mmol/L (21.0-32.0); CREATININE 0.8 mg/dL (0.55-1.02); Calcium 8.1 mg/dL (8.5-10.1); Chloride 107 mmol/L (98-107); Glucose 106 mg/dL (74-106); Potassium 4.1 mmol/L (3.5-5.1); Sodium 141 mmol/L (136-145); Total Protein 5.8 g/dL (6.4-8.2)
[2020-12-14] MEDS: Pantoprazole 40 MG VIAL IVP ×2 (08:41→19:53)
[2020-12-14] MEDS: Normal Saline Flush 10 ML SYR 20 ML IVP ×2 (08:41→19:52)
[2020-12-14] MEDS: Protein Nutritional Supplement 16 GM 1 OUNCE PACKET PO ×3 (08:42→19:52)
[2020-12-14] MEDS: Potassium Chloride Liquid 20 MEQ PKT PO (08:42)
[2020-12-14] MEDS: oxyCODONE 5 MG TAB PO (08:50)
[2020-12-14] MEDS: Cholestyramine/Aspartame PKT 1 EACH PO ×2 (10:56→19:52)
--- NOTE | 2020-12-14 12:17 | W.PM.PROGNOT ---
Date of Service Date of service: 12/14/20 Time of Service: 12:18 Assessment and Plan Assessment and plan (1) Abscess, abdomen: Status: Acute Assessment and plan: s/p IR drainage at [facility], follow cultures and sensitivities (2) Asthma: Status: Chronic (3) Acute hypokalemia: Status: Acute Assessment and plan: replete as necessary (4) Perforated abdominal viscus: Status: Acute (5) Smoker: Status: Acute (6) Leukocytosis: Status: Acute Assessment and plan: Wound culture demonstrated Enterobacter. Zosyn changed to imipenem due to sensitivities. Qualifiers: Eosinophilia type: in diseases classified elsewhere (7) Pleural effusion, left: Status: Acute Assessment and plan: Encourage pulmonary toilet, ambulation, time out of bed Subjective Subjective Patient reports: feels better Interval history since last seen: Pt is feeling well today. Stools are a little more firm, and pain is under control. She has been ambulating around in her hospital room. She is tolerating full liquids and feels ready for solid food. Exam Const General: cooperative, healthy appearing, comfortable and no acute distress HENMT Teeth and gingiva: gingiva abnormal and poor dentition Neck Neck: supple Resp Effort & Inspection: normal respiratory effort Auscultation: clear to auscultation bilaterally Cardio Rate: regular rate Rhythm: regular rhythm Heart Sounds: S1 normal and S2 normal GI Inspection: distended (decreased distention) Palpation: soft Other: midline VAC in place with good suction; Right sided JPs with clear serous output; NAVEED from subsplenic collection still looks seropurulent vs, with debris; other JPs on right are serous based Neuro General: patient alert, patient awake and patient oriented x3 Cognition: normal cognition Extrem General: no calf tenderness Psych Appearance: grossly normal Mental Status: mental status grossly normal Mood: congruent mood Affect: normal affect Attitude: cooperative Thought Process: normal Thought Content: normal Insight: insight good Judgment: judgment good Objective Last Vital Signs Temp 98.1 F 12/14/20 07:26 Pulse 82 12/14/20 07:26 Resp 17 12/14/20 07:26 BP 153/81 H 12/14/20 07:26 Pulse Ox 97 12/14/20 07:26 Laboratory Results - last 24 hr 12/14/20 12/14/20 12/14/20 06:30 06:30 08:00 WBC 11.17 H D RBC 2.55 L Hgb 7.9 L D Hct 24.6 L D MCV 96.5 H MCH 31.0 MCHC 32.1 RDW 15.4 H Plt Count 326 MPV 10.4 Immature Gran % 0.4 Neutrophils % 80.9 Lymphocytes % 11.5 Monocytes % 6.1 Eosinophils % 0.8 Basophils % 0.3 Nucleated RBC % 0 Absolute Neutrophils 9.04 H Absolute Lymphocytes 1.28 Absolute Monocytes 0.68 Absolute Eosinophils 0.09 Absolute Basophils 0.03 Sodium 136 Potassium 6.1 H* D Chloride 109 H Carbon Dioxide 18.5 L Anion Gap 8.5 BUN 4 L Creatinine 0.8 Estimated GFR/1.73 m2 >= 60.00 Glucose 689 H* D Calcium 5.8 L* Magnesium 1.9 Total Bilirubin AST ALT Alkaline Phosphatase Total Protein Albumin 12/14/20 12/14/20 08:00 08:00 WBC 15.81 H D RBC 3.58 L Hgb 11.0 L D Hct 33.7 L D MCV 94.1 MCH 30.7 MCHC 32.6 RDW 14.8 H Plt Count 439 H MPV 10.0 Immature Gran % 0.6 Neutrophils % 79.8 Lymphocytes % 12.5 Monocytes % 6.2 Eosinophils % 0.5 Basophils % 0.4 Nucleated RBC % 0 Absolute Neutrophils 12.62 H Absolute Lymphocytes 1.98 Absolute Monocytes 0.98 H Absolute Eosinophils 0.08 Absolute Basophils 0.06 Sodium 141 Potassium 4.1 D Chloride 107 Carbon Dioxide 25.2 Anion Gap 8.8 BUN 4 L Creatinine 0.8 Estimated GFR/1.73 m2 >= 60.00 Glucose 106 D Calcium 8.1 L Magnesium Total Bilirubin 0.3 AST 15 ALT 14 Alkaline Phosphatase 72 Total Protein 5.8 L Albumin 1.4 L
[2020-12-14 16:08] VITALS: BP 149/90; PULSE 87; RESP 19; TEMP 36.4; O2SAT 97
[2020-12-14] MEDS: FLUCONAZOLE 200 MG/100 ML BAG 100 MG IVPB (18:40)
[2020-12-14 19:47] VITALS: BP 150/80; PULSE 90; RESP 19; TEMP 37.2; O2SAT 99
--- NOTE | 2020-12-14 19:51 | PDOC.CMPRO ---
- If Service Date Differs Date of service: 12/14/20 Time of Service: 19:51 Care Management Progress Note S/O: Per report, Sully is feeling better today, and is able to ambulate around her room. Her pain is well controlled and she is tolerating a full liquid diet. Her diet was advanced today. CM will continue to follow. A: Sully is a 45 year old female admitted to [facility] on 12/04/20 with perforated gastric ulcer. P: Anticipate Sully will return home when medically cleared. She will follow up with her PCP, surgical services, and her discharge plan of care. She will transport via private vehicle by her s/o, Eric, when ready. CM will continue to follow.
[2020-12-14 23:46] VITALS: BP 137/80; PULSE 96; RESP 18; TEMP 36.8; O2SAT 99
[2020-12-15] MEDS: Normal Saline Flush 10 ML SYR IVP ×7 (00:21→20:12)
[2020-12-15] MEDS: HYDROmorphone 2 MG/ML VIAL 1 MG IVP ×3 (00:21→09:40)
[2020-12-15] MEDS: ACETAMINOPHEN 1,000 MG/100 ML BTL 400 MG IVPB ×3 (01:34→18:01)
[2020-12-15] MEDS: IMIPENEM/CILASTATIN 500 MG in Normal Saline 100 ML 200 MG IVPB ×3 (05:09→18:01)
[2020-12-15 07:15] VITALS: BP 159/85; PULSE 89; RESP 18; TEMP 36.7; O2SAT 99
[2020-12-15 07:32] LABS: Abs Immature Grans 0.09 10^3/uL (0.0-0.06); Absolute Basophil Count 0.08 10^3/uL (0.0-0.2); Absolute Eosinophil Count 0.05 10^3/uL (0.0-0.7); Absolute Lymphocyte Count 1.55 10^3/uL (1.2-3.4); Basophils % 0.6; Eosinophils % 0.4; HCT 32.7 % (36.0-46.0); HGB 10.7 g/dL (11.2-15.7); Immature Grans % 0.7; Lymphocytes % 11.4; MCH 30.7 pg (27.0-33.0); MCHC 32.7 % (32.0-36.0); MCV 93.7 fL (80-95); MPV 10.2 fL (8.0-11.0); Monocytes % 6.2; Neutrophils % 80.7; Nucleated RBC 0 %; Platelet Count 486 10^3/uL (130-400); RBC 3.49 10^6/uL (3.93-5.22); RDW-SD 50.1 fL; WBC 13.61 10^3/uL (4.4-10.8)
[2020-12-15 07:40] LABS: Absolute Monocyte Count 0.84 10^3/uL (0.1-0.8); Absolute Neutrophil Count 10.98 10^3/uL (1.2-6.7)
[2020-12-15 08:00] LABS: ALT 13 U/L (14-59); AST 15 U/L (15-37); Albumin 1.5 g/dL (3.4-5.0); Alkaline Phosphatase 71 U/L (46-116); Anion Gap 9.9 mmol/L (3-11); BUN 6 mg/dL (7-18); Bilirubin, Total 0.2 mg/dL (0.2-1.0); CO2 23.1 mmol/L (21.0-32.0); CREATININE 0.7 mg/dL (0.55-1.02); Chloride 108 mmol/L (98-107); Glucose 93 mg/dL (74-106); Magnesium 1.9 mg/dL (1.8-2.4); Potassium 3.6 mmol/L (3.5-5.1); Sodium 141 mmol/L (136-145)
[2020-12-15] MEDS: Potassium Chloride Liquid 20 MEQ PKT PO (08:14)
[2020-12-15] MEDS: Normal Saline Flush 10 ML SYR 20 ML IVP ×2 (08:14→20:12)
[2020-12-15] MEDS: Pantoprazole 40 MG VIAL IVP ×2 (08:14→20:11)
[2020-12-15] MEDS: Protein Nutritional Supplement 16 GM 1 OUNCE PACKET PO ×3 (08:15→20:10)
[2020-12-15] MEDS: Cholestyramine/Aspartame PKT 1 EACH PO ×2 (10:22→20:11)
[2020-12-15] MEDS: oxyCODONE 5 MG TAB PO (12:51)
--- NOTE | 2020-12-15 13:16 | PDOC.CMPRO ---
- If Service Date Differs Date of service: 12/15/20 Time of Service: 13:16 Care Management Progress Note S/O: Sully was lying in bed when CM met with her. She reported that she was feeling better, but still feels that she has a long recovery ahead of her. She reported that due to her drains and wound vac, she will likely require HH RN upon discharge. She stated that, per MD, she will likely return home later this week. CM will continue to follow. A: Sully is a 45 year old female admitted to [facility] on 12/04/20 with perforated gastric ulcer. P: Anticipate Sully will return home when medically cleared. She will follow up with her PCP, surgical services, and her discharge plan of care. She will transport via private vehicle by her s/o, Eric, when ready. CM will continue to follow.
--- NOTE | 2020-12-15 14:06 | W.PM.PROGNOT ---
Date of Service Date of service: 12/15/20 Time of Service: 14:06 Assessment and Plan Assessment and plan (1) Abscess, abdomen: Status: Acute Assessment and plan: s/p IR drainage at [facility] [place] on 12/12, follow cultures and sensitivities (2) Asthma: Status: Chronic (3) Acute hypokalemia: Status: Acute Assessment and plan: receiving daily oral supplementation IV fluids contain 20meq KCL (4) Perforated abdominal viscus: Status: Acute (5) Smoker: Status: Acute (6) Leukocytosis: Status: Acute Assessment and plan: Wound culture demonstrated Enterobacter. Zosyn changed to imipenem due to sensitivities. Qualifiers: Eosinophilia type: in diseases classified elsewhere (7) Pleural effusion, left: Status: Acute Assessment and plan: Encourage pulmonary toilet, ambulation, time out of bed Subjective Subjective Patient reports: no new complaints, feels better, tolerating a regular diet and bowel movement; denies nausea and vomiting Interval history since last seen: Pt is feeling better overall. She is talking walks. Her pain is decreased. She is going slowly and tolerating a regular diet. Exam Const General: cooperative, comfortable and no acute distress Orientation: alert, awake and oriented x3 Neck Neck: supple Resp Effort & Inspection: normal respiratory effort and able to speak in complete sentences Auscultation: clear to auscultation bilaterally Cardio Rate: regular rate Rhythm: regular rhythm Heart Sounds: S1 normal and S2 normal GI Palpation: soft, not firm and no guarding Other: soft, non-tender, VAC draining well, right abd drains serous; Drain 3 in subsplenic space still has debris, others fairly clear Neuro General: patient alert, patient awake and patient oriented x3 Cognition: normal cognition Speech: speech normal Extrem General: no calf tenderness and no cyanosis Psych Mental Status: mental status grossly normal Speech and Movement: speech and movement normal Mood: congruent mood Affect: normal affect Attitude: cooperative Thought Process: normal Thought Content: normal Insight: insight good Judgment: judgment good Objective Last Vital Signs Temp 98.1 F 12/15/20 07:15 Pulse 89 12/15/20 07:15 Resp 18 12/15/20 07:15 BP 159/85 H 12/15/20 07:15 Pulse Ox 99 12/15/20 07:15 Laboratory Results - last 24 hr 12/15/20 12/15/20 06:15 06:15 WBC 13.61 H RBC 3.49 L Hgb 10.7 L Hct 32.7 L MCV 93.7 MCH 30.7 MCHC 32.7 RDW 15.0 H Plt Count 486 H MPV 10.2 Immature Gran % 0.7 Neutrophils % 80.7 Lymphocytes % 11.4 Monocytes % 6.2 Eosinophils % 0.4 Basophils % 0.6 Nucleated RBC % 0 Absolute Neutrophils 10.98 H Absolute Lymphocytes 1.55 Absolute Monocytes 0.84 H Absolute Eosinophils 0.05 Absolute Basophils 0.08 Sodium 141 Potassium 3.6 Chloride 108 H Carbon Dioxide 23.1 Anion Gap 9.9 BUN 6 L Creatinine 0.7 Estimated GFR/1.73 m2 >= 60.00 Glucose 93 Calcium 8.0 L Magnesium 1.9 Total Bilirubin 0.2 AST 15 ALT 13 L Alkaline Phosphatase 71 Total Protein 6.0 L Albumin 1.5 L
[2020-12-15 15:08] VITALS: BP 149/78; PULSE 92; RESP 20; TEMP 36.3; O2SAT 96
[2020-12-15] MEDS: HYDROmorphone 2 MG/ML VIAL 0.5 MG IVP ×2 (16:03→20:11)
[2020-12-15] MEDS: POTASSIUM CHLORIDE/D5-0.45NACL 1,000 ML 75 MEQ IV (16:05)
[2020-12-15] MEDS: FLUCONAZOLE 200 MG/100 ML BAG 100 MG IVPB (18:50)
[2020-12-16] MEDS: IMIPENEM/CILASTATIN 500 MG in Normal Saline 100 ML 200 MG IVPB ×3 (00:10→13:05)
[2020-12-16] MEDS: ACETAMINOPHEN 1,000 MG/100 ML BTL 400 MG IVPB ×3 (01:45→17:21)
[2020-12-16] MEDS: Normal Saline Flush 10 ML SYR IVP ×6 (01:46→20:29)
[2020-12-16] MEDS: HYDROmorphone 2 MG/ML VIAL 0.5 MG IVP ×6 (01:46→20:28)
[2020-12-16] MEDS: Protein Nutritional Supplement 16 GM 1 OUNCE PACKET PO ×3 (07:35→20:28)
[2020-12-16] MEDS: Pantoprazole 40 MG VIAL IVP ×2 (07:35→20:28)
[2020-12-16] MEDS: Normal Saline Flush 10 ML SYR 20 ML IVP ×2 (07:35→20:29)
[2020-12-16] MEDS: Potassium Chloride Liquid 20 MEQ PKT PO (07:35)
[2020-12-16 07:46] VITALS: BP 154/83; PULSE 84; RESP 20; TEMP 36.7; O2SAT 96
[2020-12-16] MEDS: POTASSIUM CHLORIDE/D5-0.45NACL 1,000 ML 75 MEQ IV (07:53)
--- NOTE | 2020-12-16 08:05 | W.PM.PROGNOT ---
Documented by User: LORENA Cadet 12/16/20 08:08 Date of Service Date of service: 12/16/20 Time of Service: 08:05 Assessment and Plan Assessment and plan (1) Abscess, abdomen: Status: Acute Assessment and plan: s/p IR drainage at [facility] on 12/12, follow cultures and sensitivities (2) Asthma: Status: Chronic (3) Acute hypokalemia: Status: Acute Assessment and plan: receiving daily oral supplementation IV fluids contain 20meq KCL (4) Perforated abdominal viscus: Status: Acute (5) Smoker: Status: Acute (6) Leukocytosis: Status: Acute Assessment and plan: Wound culture demonstrated Enterobacter. Zosyn changed to imipenem due to sensitivities. Qualifiers: Eosinophilia type: in diseases classified elsewhere (7) Pleural effusion, left: Status: Acute Assessment and plan: Encourage pulmonary toilet Discussed sitting in the chair for all meals. Continue with ambulation. Subjective Subjective Interval history since last seen: Patient reports she is feeling well and is tolerating the soft diet. She reports that she walked 3 times yesterday. Denies any pain at this time. Exam Const General: cooperative, healthy appearing and comfortable Orientation: alert and oriented x3 Resp Effort & Inspection: normal respiratory effort, no audible wheezes and no cough GI Palpation: soft, no guarding and nontender Other: NAVEED drains in place on right side. Superior drain, the suture has pulled out. This is currently secured by tape. Drains placed by IR on left side of abdomen. Drain #2 with purluent drainage. Other drains have serous drainage. Objective Last Vital Signs Temp 36.7 C 12/16/20 07:46 Pulse 84 12/16/20 07:46 Resp 20 12/16/20 07:46 BP 154/83 H 12/16/20 07:46 Pulse Ox 96 12/16/20 07:46 Laboratory Results - last 24 hr 12/15/20 06:15 Sodium 141 Potassium 3.6 Chloride 108 H Carbon Dioxide 23.1 Anion Gap 9.9 BUN 6 L Creatinine 0.7 Estimated GFR/1.73 m2 >= 60.00 Glucose 93 Calcium 8.0 L Magnesium 1.9 Total Bilirubin 0.2 AST 15 ALT 13 L Alkaline Phosphatase 71 Total Protein 6.0 L Albumin 1.5 L Documented by User: Ru Munguia MD 12/16/20 16:40
[2020-12-16 08:15] LABS: Abs Immature Grans 0.08 10^3/uL (0.0-0.06); Absolute Monocyte Count 0.88 10^3/uL (0.1-0.8); Basophils % 0.5; Eosinophils % 0.1; HCT 33.7 % (36.0-46.0); HGB 11.3 g/dL (11.2-15.7); Immature Grans % 0.5; Lymphocytes % 11.2; MCH 30.9 pg (27.0-33.0); MCHC 33.5 % (32.0-36.0); MCV 92.1 fL (80-95); MPV 9.8 fL (8.0-11.0); Monocytes % 5.8; Neutrophils % 81.9; Nucleated RBC 0 %; Platelet Count 554 10^3/uL (130-400); RBC 3.66 10^6/uL (3.93-5.22); RDW 14.8 % (11.7-14.6); RDW-SD 49.8 fL; WBC 15.15 10^3/uL (4.4-10.8)
[2020-12-16 08:16] LABS: Absolute Basophil Count 0.08 10^3/uL (0.0-0.2); Absolute Eosinophil Count 0.02 10^3/uL (0.0-0.7); Absolute Neutrophil Count 12.41 10^3/uL (1.2-6.7)
[2020-12-16 08:30] LABS: ALT 13 U/L (14-59); AST 13 U/L (15-37); Albumin 1.6 g/dL (3.4-5.0); Alkaline Phosphatase 81 U/L (46-116); Anion Gap 9.2 mmol/L (3-11); BUN 6 mg/dL (7-18); Bilirubin, Total 0.4 mg/dL (0.2-1.0); CO2 24.8 mmol/L (21.0-32.0); CREATININE 0.7 mg/dL (0.55-1.02); Calcium 8.3 mg/dL (8.5-10.1); Chloride 107 mmol/L (98-107); Glucose 123 mg/dL (74-106); Magnesium 1.9 mg/dL (1.8-2.4); Potassium 3.6 mmol/L (3.5-5.1); Sodium 141 mmol/L (136-145); Total Protein 6.5 g/dL (6.4-8.2)
[2020-12-16] MEDS: Cholestyramine/Aspartame PKT 1 EACH PO ×2 (10:00→20:28)
--- NOTE | 2020-12-16 11:13 | CMPROGNOTE_ITS ---
Care Management Progress Note S/O: Sully continues to ambulate through the hallways multiple times per day as recommended. She reported that due to her drains and wound vac, she will likely require HH RN upon discharge. She stated that, per MD, she will likely return home later this week. CM discussed with surgeons Dr. Munguia and Dr. Beckford, Sully has five drains, wound vac and needs dressing changes and IV ABX; CM discussed possibility of SWB1 with surgeons and will re-visit with Dr. Beckford and Sully tomorrow. CM will continue to follow. A: Sully is a 45 year old female admitted to [facility] on 12/04/20 with perforated gastric ulcer. P: Anticipate Sully will return home when medically cleared with new orders for VNA RN to support drains and wound [id number] dependent on course of IV ABX. She will follow up with her PCP, surgical services, and her discharge plan of care. She will transport via private vehicle by her s/o, Eric, when ready. CM will continue to follow.
[2020-12-16 15:20] VITALS: BP 147/72; PULSE 87; RESP 18; TEMP 36.9; O2SAT 98
[2020-12-16] MEDS: FLUCONAZOLE 200 MG/100 ML BAG 100 MG IVPB (17:21)
[2020-12-16] MEDS: levoFLOXacin 750 MG/150 ML BAG 100 MG IVPB (18:21)
[2020-12-16] MEDS: oxyCODONE 5 MG TAB PO (23:07)
[2020-12-16 23:15] VITALS: BP 157/79; PULSE 87; RESP 18; TEMP 36.6; O2SAT 97
[2020-12-17] MEDS: HYDROmorphone 2 MG/ML VIAL 0.5 MG IVP ×6 (00:14→17:39)
[2020-12-17] MEDS: Normal Saline Flush 10 ML SYR IVP ×7 (00:14→17:36)
[2020-12-17] MEDS: ACETAMINOPHEN 1,000 MG/100 ML BTL 400 MG IVPB ×2 (02:14→10:09)
[2020-12-17] MEDS: oxyCODONE 5 MG TAB PO ×4 (06:22→20:23)
[2020-12-17 07:05] LABS: Abs Immature Grans 0.06 10^3/uL (0.0-0.06); Absolute Eosinophil Count 0.03 10^3/uL (0.0-0.7); Absolute Neutrophil Count 11.44 10^3/uL (1.2-6.7); Basophils % 0.7; Eosinophils % 0.2; HCT 30.9 % (36.0-46.0); HGB 10.1 g/dL (11.2-15.7); Immature Grans % 0.4; Lymphocytes % 13.3; MCH 30.3 pg (27.0-33.0); MCHC 32.7 % (32.0-36.0); MCV 92.8 fL (80-95); MPV 9.8 fL (8.0-11.0); Monocytes % 7.5; Neutrophils % 77.9; Nucleated RBC 0 %; Platelet Count 536 10^3/uL (130-400); RBC 3.33 10^6/uL (3.93-5.22); RDW 14.6 % (11.7-14.6); RDW-SD 49.4 fL; WBC 14.69 10^3/uL (4.4-10.8)
[2020-12-17 07:11] LABS: Absolute Lymphocyte Count 1.95 10^3/uL (1.2-3.4)
[2020-12-17 07:31] LABS: ALT 11 U/L (14-59); AST 11 U/L (15-37); Albumin 1.6 g/dL (3.4-5.0); Alkaline Phosphatase 72 U/L (46-116); Anion Gap 5.9 mmol/L (3-11); BUN 5 mg/dL (7-18); Bilirubin, Total 0.4 mg/dL (0.2-1.0); CO2 27.1 mmol/L (21.0-32.0); CREATININE 0.6 mg/dL (0.55-1.02); Chloride 109 mmol/L (98-107); Glucose 82 mg/dL (74-106); Magnesium 1.8 mg/dL (1.8-2.4); Potassium 3.3 mmol/L (3.5-5.1); Sodium 142 mmol/L (136-145)
[2020-12-17] MEDS: Protein Nutritional Supplement 16 GM 1 OUNCE PACKET PO ×3 (07:43→20:09)
[2020-12-17] MEDS: Pantoprazole 40 MG VIAL IVP ×2 (07:43→20:09)
[2020-12-17] MEDS: Potassium Chloride Liquid 20 MEQ PKT PO (07:43)
[2020-12-17] MEDS: Normal Saline Flush 10 ML SYR 20 ML IVP ×2 (07:44→20:09)
--- NOTE | 2020-12-17 08:00 | DI.CT_ITS ---
Exam(s) CT ABDOMEN PELVIS W EXAM: CT ABDOMEN PELVIS W CLINICAL HISTORY: f/u abdominal abscess. s/p drain placement TECHNIQUE: COMPARISON: CT CT ABDOMEN PELVIS W from 12/04/[address] ABDOMEN W from 12/10/[address] CHEST PE CTA from 12/11/2020 FINDINGS: CT examination of the abdomen and pelvis was performed with bolus infusion of 100 cc of Omnipaque 350 ingestion dilute barium. Examination is compared with multiple recent examination is, patient intra -abdominal abscesses. There are areas of atelectasis in both lung bases. Consolidation not excluded. Left pleural effusio n persists. No significant right pleural effusion and a previously noted right pleural effusion has resolved. Liver appears unremarkable. Surgical drain noted adjacent to spleen with no intrasplenic significant abnormality. Previously noted perisplenic fluid collection markedly decreased in size with a drain place. Surgical drain in place left paracolic, markedly decreased size of left pericolic abscess. Right lower quadrant drain placed, no gross persistent abscess at this site. Previously noted poorly defined areas of intra-abdominal free fluid in the pelvis now show enhancing whiteside consistent with at least 3 pelvic abscesses and a Minerva sigmoid pericolonic abscess. These lie, respectively, in the cul-de-sac measuring about 7 cm in greatest diameter, anterior to the uterus me asuring about 8 cm in diameter, and anterior to the urinary bladder superiorly measuring about 7 cm i n greatest diameter with a roughly 3-4 cm in diameter Minerva colonic abscess on the left. No other new abscess identified. No new solid organ involvement. No evidence of bowel obstruction. No free intraperitoneal air. IMPRESSION: Multiple new pelvic abscesses as described above. Previously described drained abscesses remain unch anged or decreased in size. Resolution of previous described right pleural effusion. Left pleural effusion and bilateral lower l obe atelectasis persists. RADIATION DOSE DELIVERED: 1,041.12mGy.cm Total DLP RADIATION OPTIMIZATION: All CT scans at this facility use at least one of these dose optimization te chniques: automated exposure control; mA and/or kV adjustment per patient size (includes targeted exa ms where dose is matched to clinical indication); or iterative reconstruction.
[2020-12-17 08:06] VITALS: BP 150/79; PULSE 88; RESP 17; TEMP 36.4; O2SAT 98
[2020-12-17] MEDS: Breeza Beverage 473 ML BTL PO ×2 (08:06→08:07)
--- NOTE | 2020-12-17 08:23 | W.PM.PROGNOT ---
Date of Service Date of service: 12/17/20 Time of Service: 08:23 Assessment and Plan Assessment and plan (1) Abscess, abdomen: Status: Acute Assessment and plan: s/p [place] [facility] [place], follow cultures and sensitivities (2) Asthma: Status: Chronic (3) Acute hypokalemia: Status: Acute Assessment and plan: receiving daily oral supplementation IV fluids contain 20meq KCL (4) Perforated abdominal viscus: Status: Acute Assessment and plan: Wound vac over midline incision Continue with Wound vac changes M, W, F Discussed the possibility of being d/c home later this week with services. She expresses that she will have help and support from several family members (significant other, mother in law and 18 y/o son) She states that she would have transportation for follow up appointments. She will need to be able to manage her drain's prior to being d/c home and will need to be d/c on PO antibiotics (5) Smoker: Status: Acute (6) Leukocytosis: Status: Acute Assessment and plan: Wound culture demonstrated Enterobacter. Zosyn changed to imipenem due to sensitivities. Qualifiers: Eosinophilia type: in diseases classified elsewhere (7) Pleural effusion, left: Status: Acute Assessment and plan: Encourage pulmonary toilet Discussed sitting in the chair for all meals. Continue with ambulation. Subjective Subjective Interval history since last seen: Patient reports she is doing very well. SHe expresses some abdominal discomfort. She states that she has been learning how to manage her drains with nsg. Exam Const General: cooperative, healthy appearing and comfortable Orientation: alert and oriented x3 Resp Effort & Inspection: normal respiratory effort, no audible wheezes and no cough GI Palpation: soft, no guarding and tender in the LLQ and in the RLQ Other: [address] Drain #3 purluent drainage Wound vac on over midline Objective Last Vital Signs Temp 36.6 C 12/16/20 23:15 Pulse 87 12/16/20 23:15 Resp 18 12/16/20 23:15 BP 157/79 H 12/16/20 23:15 Pulse Ox 97 12/16/20 23:15 Laboratory Results - last 24 hr 12/16/20 12/17/20 12/17/20 08:00 06:15 06:15 WBC 14.69 H RBC 3.33 L Hgb 10.1 L Hct 30.9 L MCV 92.8 MCH 30.3 MCHC 32.7 RDW 14.6 Plt Count 536 H MPV 9.8 Immature Gran % 0.4 Neutrophils % 77.9 Lymphocytes % 13.3 Monocytes % 7.5 Eosinophils % 0.2 Basophils % 0.7 Nucleated RBC % 0 Absolute Neutrophils 11.44 H Absolute Lymphocytes 1.95 Absolute Monocytes 1.10 H Absolute Eosinophils 0.03 Absolute Basophils 0.10 Sodium 141 142 Potassium 3.6 3.3 L Chloride 107 109 H Carbon Dioxide 24.8 27.1 Anion Gap 9.2 5.9 BUN 6 L 5 L Creatinine 0.7 0.6 Estimated GFR/1.73 m2 >= 60.00 >= 60.00 Glucose 123 H 82 Calcium 8.3 L 8.0 L Magnesium 1.9 1.8 Total Bilirubin 0.4 0.4 AST 13 L 11 L ALT 13 L 11 L Alkaline Phosphatase 81 72 Total Protein 6.5 6.0 L Albumin 1.6 L 1.6 L
--- NOTE | 2020-12-17 08:59 | CMPROGNOTE_ITS ---
Care Management Progress Note S/O: Sully became weepy when CM checked in with her stating I need to have another surgery they say I have abscesses. CM provided supportive listening and validation of Sully's frustrations. She was able to state that she was leaning toward surgery as she felt she may then not need the drains moving forward. CM discussed with surgeons Dr. Munguia and Dr. Beckford, Sully has five drains, wound vac and needs dressing changes and IV ABX; CM discussed possibility of SWB1 with surgeons and will continue to re-visit. CM will continue to follow. A: Sully is a 45 year old female admitted to [facility] on 12/04/20 with perforated gastric ulcer. P: Anticipate Sully will return home when medically cleared with new orders for VNA RN to support drains and wound [id number] dependent on course of IV ABX. She will follow up with her PCP, surgical services, and her discharge plan of care. She will transport via private vehicle by her s/o, Eric, when ready. CM will continue to follow.
[2020-12-17] MEDS: Normal Saline - Diluent 50 ML VIAL IV (09:44)
[2020-12-17] MEDS: Omnipaque 350 MG/ML 100 ML BTL IJ (09:44)
[2020-12-17 15:29] VITALS: BP 136/75; PULSE 100; RESP 18; TEMP 37; O2SAT 100
[2020-12-17] MEDS: FLUCONAZOLE 200 MG/100 ML BAG 100 MG IVPB (17:36)
[2020-12-17] MEDS: levoFLOXacin 750 MG/150 ML BAG 100 MG IVPB (17:37)
[2020-12-17] MEDS: Cholestyramine/Aspartame PKT 1 EACH PO (18:19)
[2020-12-17] MEDS: Acetaminophen 325 MG TAB 650 MG PO (20:22)
[2020-12-17 23:19] VITALS: BP 148/83; PULSE 80; RESP 17; TEMP 37.2; O2SAT 95
[2020-12-18] MEDS: oxyCODONE 5 MG TAB PO ×4 (00:31→19:55)
[2020-12-18] MEDS: Acetaminophen 325 MG TAB 650 MG PO ×2 (02:26→08:21)
[2020-12-18] MEDS: Normal Saline Flush 10 ML SYR IVP ×5 (02:27→21:43)
[2020-12-18 04:39] VITALS: BP 148/81; PULSE 81; RESP 19; TEMP 36.3; O2SAT 96
[2020-12-18 07:15] LABS: Abs Immature Grans 0.05 10^3/uL (0.0-0.06); Absolute Basophil Count 0.08 10^3/uL (0.0-0.2); Absolute Eosinophil Count 0.03 10^3/uL (0.0-0.7); Absolute Lymphocyte Count 1.42 10^3/uL (1.2-3.4); Absolute Monocyte Count 0.74 10^3/uL (0.1-0.8); Basophils % 0.6; Eosinophils % 0.2; HCT 30.9 % (36.0-46.0); HGB 10.2 g/dL (11.2-15.7); Immature Grans % 0.4; MCH 30.6 pg (27.0-33.0); MCV 92.8 fL (80-95); MPV 9.7 fL (8.0-11.0); Monocytes % 5.7; Neutrophils % 82.1; Nucleated RBC 0 %; Platelet Count 528 10^3/uL (130-400); RBC 3.33 10^6/uL (3.93-5.22); RDW 14.8 % (11.7-14.6); RDW-SD 50.1 fL; WBC 12.91 10^3/uL (4.4-10.8)
[2020-12-18 07:20] VITALS: BP 158/80; PULSE 91; RESP 20; TEMP 36.5; O2SAT 96
[2020-12-18 07:27] LABS: ALT 12 U/L (14-59); AST 16 U/L (15-37); Albumin 1.7 g/dL (3.4-5.0); Alkaline Phosphatase 76 U/L (46-116); Anion Gap 9.8 mmol/L (3-11); BUN 5 mg/dL (7-18); Bilirubin, Total 0.3 mg/dL (0.2-1.0); CO2 26.2 mmol/L (21.0-32.0); CREATININE 0.6 mg/dL (0.55-1.02); Calcium 8.2 mg/dL (8.5-10.1); Chloride 107 mmol/L (98-107); Glucose 97 mg/dL (74-106); Magnesium 1.9 mg/dL (1.8-2.4); Sodium 143 mmol/L (136-145); Total Protein 6.5 g/dL (6.4-8.2)
[2020-12-18] MEDS: Potassium Chloride Liquid 20 MEQ PKT PO (08:20)
[2020-12-18] MEDS: Pantoprazole 40 MG VIAL IVP (08:20)
[2020-12-18] MEDS: Normal Saline Flush 10 ML SYR 20 ML IVP ×2 (08:21→19:57)
[2020-12-18] MEDS: Protein Nutritional Supplement 16 GM 1 OUNCE PACKET PO ×3 (08:21→19:57)
--- NOTE | 2020-12-18 08:38 | W.PM.PROGNOT ---
Documented by User: OLRENA Cadet 12/18/20 08:47 Date of Service Date of service: 12/18/20 Time of Service: 08:38 Assessment and Plan Assessment and plan (1) Abscess, abdomen: Status: Acute Assessment and plan: s/p IR drainage at [facility] [place] on 12/12; Drains x 3 with purluent drainage, output decreasing. CT scan from 12/17 shows multiple new pelvic abscess. Dr. Marshall consulted General Surgery from [facility] [place] whom recommended IR drain placement for this new abscess. This will need to be coordinated and scheduled. WBC continues to trend downward. Tolerating regular diet Ambulating several times per day Encouraged continued activities OOB; including all meals. Pain was not well controlled over night. Reordered Dilaudid for break through pain. (2) Asthma: Status: Chronic (3) Acute hypokalemia: Status: Acute Assessment and plan: receiving daily oral supplementation IV fluids contain 20meq KCL (4) Perforated abdominal viscus: Status: Acute Assessment and plan: Wound vac over midline incision Continue with Wound vac changes M, W, F (5) Smoker: Status: Acute (6) Leukocytosis: Status: Acute Assessment and plan: Wound culture demonstrated Enterobacter. Zosyn changed to imipenem due to sensitivities. Qualifiers: Eosinophilia type: in diseases classified elsewhere (7) Pleural effusion, left: Status: Acute Assessment and plan: Per 12/18 CT, this persists. Encourage pulmonary toilet Discussed sitting in the chair for all meals. Continue with ambulation. Subjective Subjective Interval history since last seen: Arrive with the patient tearful reporting she wasnt able to sleep last night secondary to her 7-8/10PL all evening. She states that her wound vac was changed and she did not feel that the oxycodone helped with her discomfort. She is unable to pinpoint a specific location of her discomfort, stating I can feel every little stitch. Exam Const General: cooperative and in distress mild Orientation: alert and oriented x3 Resp Effort & Inspection: normal respiratory effort, no audible wheezes and no cough GI Inspection: normal to inspection Palpation: soft, no guarding and tender in the LLQ and periumbilically Other: Drains in place. Purluent drainage noted in the left sided drains (x 3) Serous drainage in the right sided drains (x2) Wound vac in place over midline incision. Objective Last Vital Signs Temp 36.5 C 12/18/20 07:20 Pulse 91 H 12/18/20 07:20 Resp 20 12/18/20 07:20 BP 158/80 H 12/18/20 07:20 Pulse Ox 96 12/18/20 07:20 Laboratory Results - last 24 hr 12/18/20 12/18/20 06:30 06:30 WBC 12.91 H RBC 3.33 L Hgb 10.2 L Hct 30.9 L MCV 92.8 MCH 30.6 MCHC 33.0 RDW 14.8 H Plt Count 528 H MPV 9.7 Immature Gran % 0.4 Neutrophils % 82.1 Lymphocytes % 11.0 Monocytes % 5.7 Eosinophils % 0.2 Basophils % 0.6 Nucleated RBC % 0 Absolute Neutrophils 10.60 H Absolute Lymphocytes 1.42 Absolute Monocytes 0.74 Absolute Eosinophils 0.03 Absolute Basophils 0.08 Sodium 143 Potassium 3.0 L Chloride 107 Carbon Dioxide 26.2 Anion Gap 9.8 BUN 5 L Creatinine 0.6 Estimated GFR/1.73 m2 >= 60.00 Glucose 97 Calcium 8.2 L Magnesium 1.9 Total Bilirubin 0.3 AST 16 ALT 12 L Alkaline Phosphatase 76 Total Protein 6.5 Albumin 1.7 L Documented by User: Moni Marshall MD 12/18/20 16:38 Documented by User: Lauren Beckford DO 12/22/20 20:54
[2020-12-18] MEDS: HYDROmorphone 2 MG/ML VIAL 0.5 MG IVP ×4 (08:52→21:42)
[2020-12-18] MEDS: Cholestyramine/Aspartame PKT 1 EACH PO (10:28)
[2020-12-18 11:18] LABS: Iron 14 ug/dL (50-170); Total Iron Binding Capacity 164 ug/dL (250-450); Transferrin Sat 9 % (15-50)
[2020-12-18 11:32] LABS: Ferritin 187 ng/mL (8-252)
[2020-12-18] MEDS: IRON SUCROSE COMPLEX 200 MG in Normal Saline 100 ML 400 MG IVPB (13:57)
--- NOTE | 2020-12-18 14:20 | CMPROGNOTE_ITS ---
Care Management Progress Note S/O: Sully remains acute with new findings of additional abscesses; she will go down and back to [facility] again for additional drain placement; awaiting coordination. Sully was quite sleepy when CM attempted to meet with her. CM will continue to follow. A: Sully is a 45 year old female admitted to [facility] on 12/04/20 with perforated gastric ulcer. P: Anticipate Sully will return home when medically cleared with new orders for VNA RN to support drains and wound [id number] dependent on course of IV ABX. She will follow up with her PCP, surgical services, and her discharge plan of care. She will transport via private vehicle by her s/o, Eric, when ready. CM will continue to follow.
[2020-12-18 15:31] VITALS: BP 119/67; PULSE 91; RESP 18; TEMP 36.9; O2SAT 96
[2020-12-18] MEDS: FLUCONAZOLE 200 MG/100 ML BAG 100 MG IVPB (17:48)
[2020-12-18] MEDS: levoFLOXacin 750 MG/150 ML BAG 100 MG IVPB (18:42)
[2020-12-18] MEDS: Potassium Chloride Liquid 20 MEQ PKT 40 MEQ PO (19:57)
[2020-12-18 23:17] VITALS: BP 127/73; PULSE 87; RESP 19; TEMP 36.3; O2SAT 97
[2020-12-19] MEDS: HYDROmorphone 2 MG/ML VIAL 0.5 MG IVP ×6 (02:06→22:03)
[2020-12-19] MEDS: Normal Saline Flush 10 ML SYR IVP ×4 (02:08→22:03)
[2020-12-19 06:15] LABS: Abs Immature Grans 0.04 10^3/uL (0.0-0.06); Absolute Eosinophil Count 0.06 10^3/uL (0.0-0.7); Absolute Lymphocyte Count 2.07 10^3/uL (1.2-3.4); Absolute Monocyte Count 0.88 10^3/uL (0.1-0.8); Absolute Neutrophil Count 8.81 10^3/uL (1.2-6.7); Basophils % 0.8; Eosinophils % 0.5; HCT 29.9 % (36.0-46.0); Immature Grans % 0.3; Lymphocytes % 17.3; MCH 30.8 pg (27.0-33.0); MCHC 33.4 % (32.0-36.0); MPV 9.4 fL (8.0-11.0); Monocytes % 7.4; Neutrophils % 73.7; Nucleated RBC 0 %; Platelet Count 507 10^3/uL (130-400); RBC 3.25 10^6/uL (3.93-5.22); RDW 14.9 % (11.7-14.6); RDW-SD 49.8 fL; WBC 11.95 10^3/uL (4.4-10.8)
[2020-12-19 06:33] LABS: ALT 23 U/L (14-59); AST 29 U/L (15-37); Albumin 1.8 g/dL (3.4-5.0); Alkaline Phosphatase 91 U/L (46-116); BUN 5 mg/dL (7-18); Bilirubin, Total 0.3 mg/dL (0.2-1.0); CREATININE 0.6 mg/dL (0.55-1.02); Calcium 8.5 mg/dL (8.5-10.1); Chloride 107 mmol/L (98-107); Glucose 89 mg/dL (74-106); Magnesium 1.9 mg/dL (1.8-2.4); Potassium 3.4 mmol/L (3.5-5.1); Sodium 142 mmol/L (136-145); Total Protein 6.5 g/dL (6.4-8.2)
[2020-12-19] MEDS: Pantoprazole 40 MG TABCR PO (08:14)
[2020-12-19] MEDS: Protein Nutritional Supplement 16 GM 1 OUNCE PACKET PO ×3 (08:14→19:56)
[2020-12-19] MEDS: Potassium Chloride Liquid 20 MEQ PKT 40 MEQ PO ×2 (08:14→19:58)
--- NOTE | 2020-12-19 08:32 | PGE_ITS ---
Documented by User: LORENA Cadet 12/19/20 08:36 Date of Service Date of service: 12/19/20 Time of Service: 08:32 Assessment and Plan Assessment and plan (1) Abscess, abdomen: Status: Acute Assessment and plan: s/[place] [facility] [place]; Drains x 3 with purluent drainage, output decreasing. CT scan from 12/17 shows multiple new pelvic abscess. Dr. Marshall consulted General Surgery [place] [facility] [place] recommended IR drain placement for this new abscess. This will need to be coordinated and scheduled. WBC continues to trend downward. Tolerating regular diet Ambulating several times per day Encouraged continued activities OOB; including all meals. (2) Asthma: Status: Chronic (3) Acute hypokalemia: Status: Acute Assessment and plan: receiving daily oral supplementation IV fluids contain 20meq KCL (4) Perforated abdominal viscus: Status: Acute Assessment and plan: Wound vac over midline incision Continue with Wound vac changes M, W, F (5) Smoker: Status: Acute (6) Leukocytosis: Status: Acute Assessment and plan: Wound culture demonstrated Enterobacter. Zosyn changed to imipenem due to sensitivities. Qualifiers: Eosinophilia type: in diseases classified elsewhere (7) Pleural effusion, left: Status: Acute Assessment and plan: Per 12/18 CT, this persists. Encourage pulmonary toilet Discussed sitting in the chair for all meals. Continue with ambulation. Subjective Subjective Interval history since last seen: Patient reports that she had a rough night but is feeling better now. She believes she walked too much yesterday. Exam Const General: cooperative, healthy appearing and comfortable Orientation: alert and oriented x3 Resp Effort & Inspection: normal respiratory effort, no audible wheezes and no cough GI Palpation: soft, no guarding and tender suprapubicly Objective Last Vital Signs Temp 36.3 C L 12/18/20 23:17 Pulse 87 12/18/20 23:17 Resp 19 12/18/20 23:17 BP 127/73 12/18/20 23:17 Pulse Ox 97 12/18/20 23:17 Laboratory Results - last 24 hr 12/18/20 12/18/20 12/19/20 06:30 06:30 06:00 WBC RBC Hgb Hct MCV MCH MCHC RDW Plt Count MPV Immature Gran % Neutrophils % Lymphocytes % Monocytes % Eosinophils % Basophils % Nucleated RBC % Absolute Neutrophils Absolute Lymphocytes Absolute Monocytes Absolute Eosinophils Absolute Basophils Sodium 142 Potassium 3.4 L Chloride 107 Carbon Dioxide 26.0 Anion Gap 9.0 BUN 5 L Creatinine 0.6 Estimated GFR/1.73 m2 >= 60.00 Glucose 89 Calcium 8.5 Magnesium 1.9 Iron 14 L TIBC 164 L Transferrin % Sat 9 L Ferritin 187 Total Bilirubin 0.3 AST 29 ALT 23 Alkaline Phosphatase 91 Total Protein 6.5 Albumin 1.8 L 12/19/20 06:00 WBC 11.95 H RBC 3.25 L Hgb 10.0 L Hct 29.9 L MCV 92.0 MCH 30.8 MCHC 33.4 RDW 14.9 H Plt Count 507 H MPV 9.4 Immature Gran % 0.3 Neutrophils % 73.7 Lymphocytes % 17.3 Monocytes % 7.4 Eosinophils % 0.5 Basophils % 0.8 Nucleated RBC % 0 Absolute Neutrophils 8.81 H Absolute Lymphocytes 2.07 Absolute Monocytes 0.88 H Absolute Eosinophils 0.06 Absolute Basophils 0.10 Sodium Potassium Chloride Carbon Dioxide Anion Gap BUN Creatinine Estimated GFR/1.73 m2 Glucose Calcium Magnesium Iron TIBC Transferrin % Sat Ferritin Total Bilirubin AST ALT Alkaline Phosphatase Total Protein Albumin Documented by User: Ru Munguia MD 12/19/20 16:50
--- NOTE | 2020-12-19 08:43 | PDOC.CMPRO ---
Care Management Progress Note S/O: Sully remains acute with new findings of additional abscesses; she will go down and back [place] [facility] [place] additional drain placement; awaiting coordination-Dr. Marshall reports Sully will likely transfer down and back tomorrow. Dr. Marshall also reported that Sully may be ready for discharge as soon as Wednesday; CM notified M/S Director, Kianna of need for wound vac by Wednesday. Sully was walking the halls when CM greeted her. CM continues to follow. A: Sully is a 45 year old female admitted to [facility] on 12/04/20 with perforated gastric ulcer. P: Anticipate Sully will return home when medically cleared with new orders for VNA RN to support drains and wound/vac [id number] dependent on course of IV ABX. She will follow up with her PCP, surgical services, and her discharge plan of care. She will transport via private vehicle by her s/o, Eric, when ready. CM will continue to follow.
[2020-12-19] MEDS: Normal Saline Flush 10 ML SYR 20 ML IVP ×2 (09:18→19:57)
[2020-12-19] MEDS: Ondansetron 4 MG/2 ML VIAL IVP (09:18)
[2020-12-19 09:20] VITALS: BP 131/80; PULSE 84; RESP 16; TEMP 37.2; O2SAT 98
--- NOTE | 2020-12-19 09:53 | NUR.NOTE ---
Spoke to Sully Billy, mother in law of patient and she stated if needed she can come on transport to [facility] [place] if it is an emergency. Called because she was told to call and check in per Sully.
--- NOTE | 2020-12-19 10:09 | W.NUTRFU ---
Date of service: 12/19/20 Time of Service: 10:10 Nutritional Follow up NOTE: Sully is tolerating regular diet and meeting nutrient and fluid needs. Will continue to offer ensure if unable to complete at least 50 % of meals. Labs indicate low albumin, as expected with chronic inflammation. Will continue to follow Time Spent in Nutritional Counseling and Treatment: 0
[2020-12-19] MEDS: Acetaminophen 325 MG TAB 650 MG PO (11:17)
[2020-12-19] MEDS: oxyCODONE 5 MG TAB PO ×3 (11:17→20:39)
[2020-12-19 16:12] VITALS: BP 112/73; PULSE 94; RESP 18; TEMP 36.4; O2SAT 97
[2020-12-19] MEDS: FLUCONAZOLE 200 MG/100 ML BAG 100 MG IVPB (17:25)
[2020-12-19] MEDS: levoFLOXacin 750 MG/150 ML BAG 100 MG IVPB (17:25)
[2020-12-19] MEDS: Lactated Ringers 1,000 ML 120 ML IV (20:03)
[2020-12-19 23:13] VITALS: BP 122/70; PULSE 83; RESP 17; TEMP 36.5; O2SAT 96
[2020-12-20] MEDS: HYDROmorphone 2 MG/ML VIAL 0.5 MG IVP ×5 (02:32→23:05)
[2020-12-20] MEDS: Normal Saline Flush 10 ML SYR IVP ×3 (02:33→23:07)
[2020-12-20] MEDS: Lactated Ringers 1,000 ML 120 ML IV ×2 (04:29→20:13)
[2020-12-20] MEDS: oxyCODONE 5 MG TAB PO ×3 (04:31→20:13)
[2020-12-20] MEDS: Acetaminophen 325 MG TAB 650 MG PO ×2 (04:32→23:06)
[2020-12-20 07:27] VITALS: BP 125/83; PULSE 76; RESP 19; TEMP 36.3; O2SAT 97
[2020-12-20] MEDS: Pantoprazole 40 MG TABCR PO (07:48)
[2020-12-20] MEDS: Normal Saline Flush 10 ML SYR 20 ML IVP ×2 (07:49→20:13)
--- NOTE | 2020-12-20 08:57 | PGE_ITS ---
Date of Service Date of service: 12/20/20 Time of Service: 08:57 Assessment and Plan Assessment and plan (1) Abscess, abdomen: Status: Acute Assessment and plan: s/p IR drainage at [facility] [place] [place] on 12/12; Drains x 3 with purluent drainage, output decreasing. CT scan from 12/17 shows multiple new pelvic abscess. Going to [facility] [place] [place] for IR drain placement later today. Ambulating several times per day Encouraged continued activities OOB; including all meals. (2) Asthma: Status: Chronic (3) Acute hypokalemia: Status: Acute Assessment and plan: receiving daily oral supplementation IV fluids contain 20meq KCL (4) Perforated abdominal viscus: Status: Acute Assessment and plan: Wound vac over midline incision Continue with Wound vac changes M, W, F (5) Smoker: Status: Acute (6) Leukocytosis: Status: Acute Assessment and plan: Wound culture demonstrated Enterobacter. Zosyn changed to imipenem due to sensitivities. WBC count is trending downward Qualifiers: Eosinophilia type: in diseases classified elsewhere (7) Pleural effusion, left: Status: Acute Assessment and plan: Per 12/18 CT, this persists. Encourage pulmonary toilet Discussed sitting in the chair for all meals. Continue with ambulation. Subjective Subjective Interval history since last seen: Patient reports that she is feeling a little anxious about going to [facility] [place] [place] today. She reports at this time her pain is well controlled. Exam Const General: cooperative, healthy appearing and comfortable Orientation: alert and oriented x3 Resp Effort & Inspection: normal respiratory effort, no audible wheezes and no cough GI Palpation: soft, no guarding and tender suprapubicly Other: Wound vac in place. Drains with minimal serous drainage Objective Last Vital Signs Temp 36.3 C L 12/20/20 07:27 Pulse 76 12/20/20 07:27 Resp 19 12/20/20 07:27 BP 125/83 12/20/20 07:27 Pulse Ox 97 12/20/20 07:27
--- NOTE | 2020-12-20 08:59 | PDOC.CMPRO ---
Care Management Progress Note S/O: Sully remains acute with new findings of additional abscesses; she will go down and back to [facility] again for additional drain placement today. She was lying in bed talking on the phone when CM met with her, she shared hopes that she would have some drains removed today when additional ones are placed. She again, verbalized her desire to have surgery instead of continuing with the drains; however is following [facility] recommendations at this time. CM notified M/S Director, Kianna (12/19/20) of anticipated need for wound vac by Wednesday. Sully was walking the halls when CM greeted her. CM continues to follow. A: Sully is a 45 year old female admitted to [facility] on 12/04/20 with perforated gastric ulcer. P: Anticipate Sully will return home when medically cleared with new orders for VNA RN to support drains, wound/vac management and possible IV ABX (coordination will delay Wednesday discharge if needed). She will follow up with her PCP, surgical services, and her discharge plan of care. She will transport via private vehicle by her s/o, Eric, when ready. CM will continue to follow.
[2020-12-20] MEDS: Ondansetron 4 MG/2 ML VIAL IVP ×2 (09:19→18:44)
[2020-12-20] MEDS: levoFLOXacin 750 MG/150 ML BAG 100 MG IVPB (18:43)
[2020-12-20] MEDS: FLUCONAZOLE 200 MG/100 ML BAG 100 MG IVPB (18:44)
[2020-12-20 19:25] VITALS: BP 131/74; PULSE 77; RESP 18; TEMP 36.3; O2SAT 93
[2020-12-20 23:24] VITALS: BP 133/81; PULSE 85; RESP 17; TEMP 36.2; O2SAT 97
[2020-12-21] MEDS: Lactated Ringers 1,000 ML 120 ML IV ×3 (04:22→22:09)
[2020-12-21] MEDS: HYDROmorphone 2 MG/ML VIAL 0.5 MG IVP ×5 (04:28→22:10)
[2020-12-21] MEDS: Normal Saline Flush 10 ML SYR IVP ×5 (04:29→22:10)
[2020-12-21 07:52] VITALS: BP 125/74; PULSE 86; RESP 17; TEMP 37.1; O2SAT 96
[2020-12-21] MEDS: Acetaminophen 325 MG TAB 650 MG PO ×3 (08:27→20:10)
[2020-12-21] MEDS: oxyCODONE 5 MG TAB PO (08:28)
[2020-12-21] MEDS: Pantoprazole 40 MG TABCR PO (08:28)
[2020-12-21] MEDS: Protein Nutritional Supplement 16 GM 1 OUNCE PACKET PO ×3 (08:30→20:12)
[2020-12-21] MEDS: Normal Saline Flush 10 ML SYR 20 ML IVP ×2 (08:31→20:12)
[2020-12-21] MEDS: Potassium Chloride Liquid 20 MEQ PKT 40 MEQ PO ×2 (08:35→20:10)
[2020-12-21 11:52] VITALS: BP 115/76; PULSE 80; RESP 16; TEMP 36.8; O2SAT 97
--- NOTE | 2020-12-21 12:19 | W.PM.PROGNOT ---
Date of Service Date of service: 12/21/20 Time of Service: 12:19 Assessment and Plan Assessment and plan (1) Abscess, abdomen: Status: Acute Assessment and plan: s/p IR drainage at [facility] on 12/12; Drains x 3 with seropurulent drainage, output decreasing. s/p IR drainage at [facility] on 12/20. Drain in suprapubic region, and Left gluterus. Output serosanguinous --continue current antibiotics. WIll look out for further C&S from [facility] --OOb and ambulate --pain control--will adjust meds --regular diet (2) Asthma: Status: Chronic (3) Acute hypokalemia: Status: Acute Assessment and plan: receiving daily oral supplementation (4) Perforated abdominal viscus: Status: Acute Assessment and plan: Wound vac over midline incision Continue with Wound vac changes M, W, F (5) Smoker: Status: Acute (6) Leukocytosis: Status: Acute Assessment and plan: Wound culture demonstrated Enterobacter. Pt now on Levofloxacin due to sensitivities. WBC count is trending downward Qualifiers: Eosinophilia type: in diseases classified elsewhere (7) Pleural effusion, left: Status: Acute Assessment and plan: Per 12/18 CT, this persists. Encourage pulmonary toilet Discussed sitting in the chair for all meals. Continue with ambulation. Subjective Subjective Patient reports: still having pain, tolerating a regular diet, flatus and bowel movement Interval history since last seen: Pt went to [facility] yesterday and had two new drains placed. One in the suprapubic area, and another through the left gluteus. The patient reports one of the LUQ drains was exchanged. She has a total of 5 drains now, and a VAC to the upper midline wound. She is having significant pain from the left gluteal drain site. She is tolerating a regular diet, and has had 2 soft, formed bowel movements since she returned form [facility]. Exam Const General: cooperative, healthy appearing, uncomfortable (appears uncomfortable; laying on her right side to avoid L gluteal drain), not in distress and not combative Nutritional Appearance: average body habitus Orientation: alert, awake and oriented x3 Resp Effort & Inspection: normal respiratory effort, no grunting, not labored and no nasal flaring GI Other: multiple abdominal drains; mostly serosanguinous, VAC in place Other: suprapubic tenderness near drain site Neuro General: patient alert, patient awake and patient oriented x3 Cognition: normal cognition Speech: speech normal Extrem General: no calf tenderness Psych Appearance: grossly normal Mental Status: mental status grossly normal Speech and Movement: speech and movement normal Mood: congruent mood Affect: normal affect Attitude: cooperative Thought Process: normal Thought Content: normal Insight: insight good Judgment: judgment good Objective Last Vital Signs Temp 98.2 F 12/21/20 11:52 Pulse 80 12/21/20 11:52 Resp 16 12/21/20 11:52 BP 115/76 12/21/20 11:52 Pulse Ox 97 12/21/20 11:52
[2020-12-21] MEDS: Ketorolac 15 MG/ML VIAL IVP ×2 (13:26→18:32)
--- NOTE | 2020-12-21 13:51 | CMPROGNOTE_ITS ---
- If Service Date Differs Date of service: 12/21/20 Time of Service: 13:51 Care Management Progress Note S/O: Sully is laying in bed on her side watching television when CM comes to meet with her. She reports doing better and is looking forward to returning home. She went down to [facility] yesterday for the placement of two additional drains. Per provider note, she is tolerating a regular diet and is having significant pain from the gluteal drain site. She remains on I.V. antibiotics. CM continues to follow. A: Sully is a 45 year old female admitted to [facility] on 12/04/20 with perforated gastric ulcer. P: No change in plan. Anticipate Sully will return home when medically bette red with new orders for VNA RN to support drains, wound/vac management and possible IV ABX (coordination will delay Wednesday discharge if needed). She will follow up with her PCP, surgical services, and her discharge plan of care. She will transport via private vehicle by her s/o, Eric, when ready. CM will continue to follow.
[2020-12-21 15:15] VITALS: BP 123/73; PULSE 85; RESP 17; TEMP 37.1; O2SAT 96
[2020-12-21] MEDS: FLUCONAZOLE 200 MG/100 ML BAG 100 MG IVPB (18:04)
[2020-12-21] MEDS: levoFLOXacin 750 MG/150 ML BAG 100 MG IVPB (18:04)
[2020-12-21 23:33] VITALS: BP 123/71; PULSE 82; RESP 18; TEMP 36.5; O2SAT 97
[2020-12-22] MEDS: Ketorolac 15 MG/ML VIAL IVP ×4 (00:07→17:51)
[2020-12-22] MEDS: Acetaminophen 325 MG TAB 650 MG PO ×3 (01:39→19:42)
[2020-12-22] MEDS: Normal Saline Flush 10 ML SYR IVP ×8 (01:40→17:42)
[2020-12-22] MEDS: HYDROmorphone 2 MG/ML VIAL 0.5 MG IVP ×8 (01:40→22:50)
[2020-12-22 07:06] LABS: Abs Immature Grans 0.04 10^3/uL (0.0-0.06); Absolute Basophil Count 0.08 10^3/uL (0.0-0.2); Absolute Eosinophil Count 0.15 10^3/uL (0.0-0.7); Absolute Lymphocyte Count 1.82 10^3/uL (1.2-3.4); Absolute Monocyte Count 0.66 10^3/uL (0.1-0.8); Absolute Neutrophil Count 7.54 10^3/uL (1.2-6.7); Basophils % 0.8; Eosinophils % 1.5; HGB 10.3 g/dL (11.2-15.7); Immature Grans % 0.4; Lymphocytes % 17.7; MCH 30.4 pg (27.0-33.0); MCHC 32.2 % (32.0-36.0); MCV 94.4 fL (80-95); MPV 9.8 fL (8.0-11.0); Monocytes % 6.4; Neutrophils % 73.2; Nucleated RBC 0 %; Platelet Count 479 10^3/uL (130-400); RBC 3.39 10^6/uL (3.93-5.22); RDW 14.8 % (11.7-14.6); RDW-SD 50.6 fL; WBC 10.29 10^3/uL (4.4-10.8)
[2020-12-22 07:21] LABS: ALT 67 U/L (14-59); AST 39 U/L (15-37); Albumin 1.9 g/dL (3.4-5.0); Alkaline Phosphatase 105 U/L (46-116); Anion Gap 3.1 mmol/L (3-11); BUN 8 mg/dL (7-18); Bilirubin, Total 0.2 mg/dL (0.2-1.0); CO2 27.9 mmol/L (21.0-32.0); CREATININE 0.7 mg/dL (0.55-1.02); Calcium 8.6 mg/dL (8.5-10.1); Chloride 108 mmol/L (98-107); Glucose 104 mg/dL (74-106); Magnesium 1.8 mg/dL (1.8-2.4); Potassium 3.1 mmol/L (3.5-5.1); Sodium 139 mmol/L (136-145); Total Protein 6.5 g/dL (6.4-8.2)
[2020-12-22 07:43] VITALS: BP 135/90; PULSE 89; RESP 16; TEMP 36.7; O2SAT 97
[2020-12-22] MEDS: Protein Nutritional Supplement 16 GM 1 OUNCE PACKET PO ×2 (08:23→19:41)
[2020-12-22] MEDS: Potassium Chloride Liquid 20 MEQ PKT 40 MEQ PO ×2 (08:23→19:41)
[2020-12-22] MEDS: oxyCODONE 5 MG TAB PO (08:24)
[2020-12-22] MEDS: Pantoprazole 40 MG TABCR PO (08:24)
[2020-12-22] MEDS: Normal Saline Flush 10 ML SYR 20 ML IVP ×2 (08:25→19:44)
[2020-12-22] MEDS: Potassium Chloride 20 MEQ TABCR PO (10:21)
--- NOTE | 2020-12-22 13:45 | DI.RAD_ITS ---
Exam(s) XR ABD FLAT UPRIGHT PA CHEST EXAM: XR ABD FLAT UPRIGHT PA CHEST CLINICAL HISTORY: nausea/vomiting. TECHNIQUE: 2D digital imaging was performed. COMPARISON: CT CT ABDOMEN W from 12/10/[address] ABDOMEN W from 12/10/[address] CHEST PE CTA from 12/11/[address] CHEST PE CTA from 12/11/[address] ABDOMEN PELVIS W from 12/17/[address] ABDOMEN PELVIS W from 12/17/2020 FINDINGS: Chest x-ray: Heart size normal mediastinum is not widened. The distal tip of the left PICC line is a t the SVC-RA junction. Left pleural effusion is again noted and corresponds to the pleural effusions seen on the recent CT s can 12/17/2020 There is no free air subjacent to the hemidiaphragms. In the abdomen there are multiple pigtail drainage catheters servicing the previously described multi ple abscesses in the and in the left side of the abdomen and within the pelvis. There is also a Med e-type percutaneous drain entering from the right side. There are air-fluid level seen within some small bowel loops in both sides of the abdomen. This is e ither related to ileus pattern or an element of small bowel obstruction. IMPRESSION: DATA REPOSITORY: RADIATION DOSE DELIVERED:
[2020-12-22] MEDS: Ondansetron 4 MG/2 ML VIAL IVP ×2 (13:51→19:44)
--- NOTE | 2020-12-22 14:13 | W.PM.PROGNOT ---
Date of Service Date of service: 12/22/20 Time of Service: 14:14 Assessment and Plan Assessment and plan (1) Abscess, abdomen: Status: Acute Assessment and plan: s/p IR drainage at [facility] on 12/12; Drains x 3 with seropurulent drainage, output decreasing. s/p IR drainage at [facility] on 12/20. Drain in suprapubic region, and Left gluterus. Output serosanguinous --continue current antibiotics. WIll look out for further C&S from [facility] --OOb and ambulate --pain control--will adjust meds --regular diet (2) Asthma: Status: Chronic (3) Acute hypokalemia: Status: Acute Assessment and plan: receiving daily oral supplementation (4) Perforated abdominal viscus: Status: Acute Assessment and plan: Wound vac over midline incision Continue with Wound vac changes M, W, F (5) Smoker: Status: Acute (6) Leukocytosis: Status: Acute Assessment and plan: Normal for the first time 12/22 Wound culture demonstrated Enterobacter. Pt now on Levofloxacin due to sensitivities. Qualifiers: Eosinophilia type: in diseases classified elsewhere (7) Pleural effusion, left: Status: Acute Assessment and plan: Per 12/18 CT, this persists. Encourage pulmonary toilet Discussed sitting in the chair for all meals. Continue with ambulation. Subjective Subjective Patient reports: still having pain, voiding w/o difficulty, flatus and bowel movement; denies shortness of breath Interval history since last seen: Sully is feeling okay, though is having some reflux sensations. She is worried that something occurred in her abdomen when she was laid prone for IR at [facility]. She is not feeling nauseous, but has decresed her PO intake. She has been ambulating, voiding, and stooling well. Exam Const General: cooperative and anxious Orientation: alert, awake and oriented x3 Resp Effort & Inspection: normal respiratory effort, able to speak in complete sentences, no grunting, not labored and no nasal flaring GI Palpation: soft, not firm, no guarding, not rigid and tender (around drain sites) Other: 6 abdominal drains, mostly with scant serosanguinous fluid Neuro General: patient alert, patient awake, patient oriented x3 and not confused Cognition: normal cognition Psych Mental Status: mental status grossly normal Speech and Movement: speech and movement normal Mood: anxious mood Affect: normal affect Attitude: cooperative Thought Process: normal Thought Content: normal Insight: insight good Judgment: judgment good Objective Last Vital Signs Temp 98.1 F 12/22/20 07:43 Pulse 89 12/22/20 07:43 Resp 16 12/22/20 07:43 BP 135/90 12/22/20 07:43 Pulse Ox 97 12/22/20 07:43 Laboratory Results - last 24 hr 12/22/20 12/22/20 06:15 06:15 WBC 10.29 RBC 3.39 L Hgb 10.3 L Hct 32.0 L MCV 94.4 MCH 30.4 MCHC 32.2 RDW 14.8 H Plt Count 479 H MPV 9.8 Immature Gran % 0.4 Neutrophils % 73.2 Lymphocytes % 17.7 Monocytes % 6.4 Eosinophils % 1.5 Basophils % 0.8 Nucleated RBC % 0 Absolute Neutrophils 7.54 H Absolute Lymphocytes 1.82 Absolute Monocytes 0.66 Absolute Eosinophils 0.15 Absolute Basophils 0.08 Sodium 139 Potassium 3.1 L Chloride 108 H Carbon Dioxide 27.9 Anion Gap 3.1 BUN 8 Creatinine 0.7 Estimated GFR/1.73 m2 >= 60.00 Glucose 104 Calcium 8.6 Magnesium 1.8 Total Bilirubin 0.2 AST 39 H ALT 67 H Alkaline Phosphatase 105 Total Protein 6.5 Albumin 1.9 L
--- NOTE | 2020-12-22 14:19 | W.PM.PROGNOT ---
Objective Last Vital Signs Temp 98.1 F 12/22/20 07:43 Pulse 89 12/22/20 07:43 Resp 16 12/22/20 07:43 BP 135/90 12/22/20 07:43 Pulse Ox 97 12/22/20 07:43 Laboratory Results - last 24 hr 12/22/20 12/22/20 06:15 06:15 WBC 10.29 RBC 3.39 L Hgb 10.3 L Hct 32.0 L MCV 94.4 MCH 30.4 MCHC 32.2 RDW 14.8 H Plt Count 479 H MPV 9.8 Immature Gran % 0.4 Neutrophils % 73.2 Lymphocytes % 17.7 Monocytes % 6.4 Eosinophils % 1.5 Basophils % 0.8 Nucleated RBC % 0 Absolute Neutrophils 7.54 H Absolute Lymphocytes 1.82 Absolute Monocytes 0.66 Absolute Eosinophils 0.15 Absolute Basophils 0.08 Sodium 139 Potassium 3.1 L Chloride 108 H Carbon Dioxide 27.9 Anion Gap 3.1 BUN 8 Creatinine 0.7 Estimated GFR/1.73 m2 >= 60.00 Glucose 104 Calcium 8.6 Magnesium 1.8 Total Bilirubin 0.2 AST 39 H ALT 67 H Alkaline Phosphatase 105 Total Protein 6.5 Albumin 1.9 L
[2020-12-22 15:21] VITALS: BP 140/92; PULSE 86; RESP 18; TEMP 36.9; O2SAT 97
--- NOTE | 2020-12-22 15:59 | DI.VRAD_ITS ---
PROCEDURE INFORMATION: Exam: XR Complete Acute Abdomen Series Including Chest Exam date and time: 12/22/2020 1:53 PM Age: 45 years old Clinical indication: Other: Nausea/vomiting TECHNIQUE: Imaging protocol: XR complete acute abdomen series, including 2 or more views of the abdomen and a single view chest. COMPARISON: CT ABDOMEN PELVIS W 12/17/2020 9:33 AM FINDINGS: Tubes, catheters and devices: Please note the left letter marker is incorrectly positioned on the patient's right. A left PICC is present. There are several percutaneous drainage catheters positioned over the abdomen and pelvis consistent with percutaneous drainage of multiple abscesses. Lungs: Normal. No consolidation. Pleural spaces: There is blunting of the left costophrenic angle consistent with a small left pleural effusion. Heart/Mediastinum: The heart is not enlarged. Gastrointestinal tract: Dilated loops of small bowel multiple air-fluid levels are noted. Intraperitoneal space: No pneumoperitoneum is identified. Bones/joints: Normal. No acute fracture. Soft tissues: Normal. IMPRESSION: 1. Dilated small bowel with multiple air-fluid levels. This may be secondary to small bowel obstruction versus adynamic ileus. 2. Multiple percutaneous drainage catheters are present within the abdomen and pelvis. 3. A left PICC is present. 4. Small left pleural effusion. Dictated and Authenticated by: Jemal Rojas MD. Ordering:VERONIQUE Vences MD
[2020-12-22] MEDS: FLUCONAZOLE 200 MG/100 ML BAG 100 MG IVPB (17:42)
[2020-12-22] MEDS: levoFLOXacin 750 MG/150 ML BAG 100 MG IVPB (17:42)
--- NOTE | 2020-12-22 17:49 | PDOC.CMPRO ---
- If Service Date Differs Date of service: 12/22/20 Time of Service: 17:49 Care Management Progress Note S/O: Per provider note, Sully continues on antibiotics. She reports feeling ok but is still having pain. An xray done of her chest and abdomen today reveal a small left pleural effusion and dilated small bowel with multiple air-fluid levels. Lab work done this morning show a normal WBC value at 10.29, low RBC at 3.39, and high platelet count at 479, though this is improved from yesterday's value of 507. CM will continue to follow. A: Sully is a 45 year old female admitted to [facility] on 12/04/20 with perforated gastric ulcer. P: No change in plan. Anticipate Sully will return home when medically cleared with new orders for VNA RN to support drains, wound/vac management and possible IV ABX (coordination will delay Wednesday discharge if needed). She will follow up with her PCP, surgical services, and her discharge plan of care. She will transport via private vehicle by her s/o, Eric, when ready. CM will continue to follow.
[2020-12-22] MEDS: POTASSIUM CHLORIDE/D5-0.45NACL 1,000 ML 125 MEQ IV (22:50)
[2020-12-23 00:17] VITALS: BP 137/81; PULSE 77; RESP 18; TEMP 36.2; O2SAT 98
[2020-12-23] MEDS: Ketorolac 15 MG/ML VIAL IVP ×4 (01:05→18:12)
[2020-12-23] MEDS: HYDROmorphone 2 MG/ML VIAL 0.5 MG IVP ×5 (04:40→20:31)
[2020-12-23] MEDS: POTASSIUM CHLORIDE/D5-0.45NACL 1,000 ML 125 MEQ IV ×3 (05:28→23:39)
[2020-12-23 06:54] LABS: Abs Immature Grans 0.04 10^3/uL (0.0-0.06); Absolute Basophil Count 0.09 10^3/uL (0.0-0.2); Absolute Eosinophil Count 0.29 10^3/uL (0.0-0.7); Absolute Lymphocyte Count 1.76 10^3/uL (1.2-3.4); Absolute Monocyte Count 0.63 10^3/uL (0.1-0.8); Basophils % 0.8; Eosinophils % 2.5; HCT 31.8 % (36.0-46.0); HGB 10.3 g/dL (11.2-15.7); Immature Grans % 0.3; Lymphocytes % 15.4; MCH 30.4 pg (27.0-33.0); MCHC 32.4 % (32.0-36.0); MCV 93.8 fL (80-95); MPV 9.7 fL (8.0-11.0); Monocytes % 5.5; Neutrophils % 75.5; Nucleated RBC 0 %; Platelet Count 487 10^3/uL (130-400); RBC 3.39 10^6/uL (3.93-5.22); RDW 14.9 % (11.7-14.6); RDW-SD 50.8 fL; WBC 11.43 10^3/uL (4.4-10.8)
[2020-12-23 07:09] LABS: Absolute Neutrophil Count 8.63 10^3/uL (1.2-6.7)
[2020-12-23 07:39] LABS: ALT 100 U/L (14-59); AST 61 U/L (15-37); Albumin 2.1 g/dL (3.4-5.0); Alkaline Phosphatase 106 U/L (46-116); Anion Gap 10.4 mmol/L (3-11); BUN 8 mg/dL (7-18); Bilirubin, Total 0.2 mg/dL (0.2-1.0); CO2 24.6 mmol/L (21.0-32.0); CREATININE 0.8 mg/dL (0.55-1.02); Calcium 8.9 mg/dL (8.5-10.1); Chloride 107 mmol/L (98-107); Glucose 116 mg/dL (74-106); Magnesium 1.8 mg/dL (1.8-2.4); Potassium 3.8 mmol/L (3.5-5.1); Sodium 142 mmol/L (136-145); Total Protein 6.7 g/dL (6.4-8.2)
[2020-12-23 07:54] VITALS: BP 141/86; PULSE 81; RESP 19; TEMP 36.4; O2SAT 97
[2020-12-23] MEDS: Ondansetron 4 MG/2 ML VIAL IVP (08:04)
[2020-12-23] MEDS: Normal Saline Flush 10 ML SYR 20 ML IVP ×2 (08:06→20:32)
[2020-12-23] MEDS: Normal Saline Flush 10 ML SYR IVP ×5 (08:07→18:12)
--- NOTE | 2020-12-23 08:39 | PGE_ITS ---
Documented by User: LORENA Cadet 12/23/20 08:56 Date of Service Date of service: 12/23/20 Time of Service: 08:39 Assessment and Plan Assessment and plan (1) Abscess, abdomen: Status: Acute Assessment and plan: s/p IR drainage at [facility] on 12/12; Drains x 3 with seropurulent drainage, output decreasing. s/p IR drainage at [facility] on 12/20. Drain in suprapubic region, and Left gluterus. Output serosanguinous --continue current antibiotics. WIll look out for further C&S from [facility] --OOb and ambulate --pain control--will adjust meds --currently NPO, secondary to vomiting. chest/abd x-ray showed possible ileus vs. SBO After speaking with Dr. Beckford Will order TPN given albumin 2.1 (2) Asthma: Status: Chronic (3) Acute hypokalemia: Status: Acute Assessment and plan: receiving daily oral supplementation (4) Perforated abdominal viscus: Status: Acute Assessment and plan: Wound vac over midline incision Continue with Wound vac changes M, W, F (5) Smoker: Status: Acute (6) Leukocytosis: Status: Acute Assessment and plan: Wound culture demonstrated Enterobacter. Pt now on Levofloxacin due to sensitivities. Qualifiers: Eosinophilia type: in diseases classified elsewhere (7) Pleural effusion, left: Status: Acute Assessment and plan: Per 12/18 CT, this persists. Encourage pulmonary toilet Discussed sitting in the chair for all meals. Continue with ambulation. Subjective Subjective Interval history since last seen: Feeling okay this morning. She denies any nausea at this time. She states that she is hungry. She reports discomfort from the wound vac. Exam Const General: cooperative, healthy appearing and comfortable Orientation: alert and oriented x3 Resp Effort & Inspection: normal respiratory effort, no audible wheezes and no cough GI Inspection: normal to inspection Palpation: soft, no guarding and tender (surrounding drains) Objective Last Vital Signs Temp 36.4 C L 12/23/20 07:54 Pulse 81 12/23/20 07:54 Resp 19 12/23/20 07:54 BP 141/86 H 12/23/20 07:54 Pulse Ox 97 12/23/20 07:54 Laboratory Results - last 24 hr 12/23/20 12/23/20 06:20 06:20 WBC 11.43 H RBC 3.39 L Hgb 10.3 L Hct 31.8 L MCV 93.8 MCH 30.4 MCHC 32.4 RDW 14.9 H Plt Count 487 H MPV 9.7 Immature Gran % 0.3 Neutrophils % 75.5 Lymphocytes % 15.4 Monocytes % 5.5 Eosinophils % 2.5 Basophils % 0.8 Nucleated RBC % 0 Absolute Neutrophils 8.63 H Absolute Lymphocytes 1.76 Absolute Monocytes 0.63 Absolute Eosinophils 0.29 Absolute Basophils 0.09 Sodium 142 Potassium 3.8 D Chloride 107 Carbon Dioxide 24.6 Anion Gap 10.4 BUN 8 Creatinine 0.8 Estimated GFR/1.73 m2 >= 60.00 Glucose 116 H Calcium 8.9 Magnesium 1.8 Total Bilirubin 0.2 AST 61 H ALT 100 H Alkaline Phosphatase 106 Total Protein 6.7 Albumin 2.1 L Documented by User: Ru Munguia MD 12/23/20 14:19
[2020-12-23] MEDS: Acetaminophen 325 MG TAB 650 MG PO ×2 (13:40→20:30)
--- NOTE | 2020-12-23 13:43 | PDOC.CMPRO ---
- If Service Date Differs Date of service: 12/23/20 Time of Service: 14:16 Care Management Progress Note S/O: Sully was walking the hallways when CM greeted her, she remains on IV ABX and pain medication. She is currently NPO due to vomiting, per provider there is concern for ileus or SBO; CM continues to follow. A: Sully is a 45 year old female admitted to [facility] on 12/04/20 with perforated gastric ulcer. P: No change in plan. Anticipate Sully will return home when medically cleared with new orders for VNA RN to support drains, wound/vac management and possible IV ABX (coordination will delay Wednesday discharge if needed). She will follow up with her PCP, surgical services, and her discharge plan of care. She will transport via private vehicle by her s/o, Eric, when ready. CM will continue to follow.
[2020-12-23 15:49] VITALS: BP 116/71; PULSE 84; TEMP 36.7; O2SAT 97
[2020-12-23] MEDS: levoFLOXacin 750 MG/150 ML BAG 100 MG IVPB (18:11)
[2020-12-23] MEDS: FLUCONAZOLE 200 MG/100 ML BAG 100 MG IVPB (18:11)
[2020-12-23 23:55] VITALS: BP 129/75; PULSE 75; RESP 20; TEMP 36.5; O2SAT 99
[2020-12-24] MEDS: Ketorolac 15 MG/ML VIAL IVP ×4 (00:24→17:24)
[2020-12-24] MEDS: HYDROmorphone 2 MG/ML VIAL 0.5 MG IVP ×4 (00:25→11:31)
[2020-12-24] MEDS: POTASSIUM CHLORIDE/D5-0.45NACL 1,000 ML 125 MEQ IV (06:21)
[2020-12-24 06:34] LABS: Abs Immature Grans 0.04 10^3/uL (0.0-0.06); Absolute Basophil Count 0.08 10^3/uL (0.0-0.2); Absolute Eosinophil Count 0.58 10^3/uL (0.0-0.7); Absolute Lymphocyte Count 1.81 10^3/uL (1.2-3.4); Absolute Monocyte Count 0.84 10^3/uL (0.1-0.8); Absolute Neutrophil Count 6.73 10^3/uL (1.2-6.7); Basophils % 0.8; Eosinophils % 5.8; HCT 30.9 % (36.0-46.0); HGB 9.8 g/dL (11.2-15.7); Immature Grans % 0.4; MCH 30.2 pg (27.0-33.0); MCHC 31.7 % (32.0-36.0); MCV 95.4 fL (80-95); MPV 9.9 fL (8.0-11.0); Monocytes % 8.3; Neutrophils % 66.7; Nucleated RBC 0 %; Platelet Count 442 10^3/uL (130-400); RBC 3.24 10^6/uL (3.93-5.22); RDW 14.6 % (11.7-14.6); RDW-SD 50.4 fL; WBC 10.08 10^3/uL (4.4-10.8)
[2020-12-24 06:48] LABS: ALT 68 U/L (14-59); AST 29 U/L (15-37); Alkaline Phosphatase 89 U/L (46-116); Anion Gap 7.1 mmol/L (3-11); BUN 9 mg/dL (7-18); Bilirubin, Total 0.2 mg/dL (0.2-1.0); CO2 26.9 mmol/L (21.0-32.0); CREATININE 0.7 mg/dL (0.55-1.02); Calcium 8.3 mg/dL (8.5-10.1); Chloride 110 mmol/L (98-107); Glucose 89 mg/dL (74-106); Magnesium 1.8 mg/dL (1.8-2.4); Potassium 3.9 mmol/L (3.5-5.1); Sodium 144 mmol/L (136-145); Total Protein 6.2 g/dL (6.4-8.2)
[2020-12-24 06:49] LABS: PHOSPHORUS 2.9 mg/dL (2.6-4.7)
[2020-12-24] MEDS: Pantoprazole 40 MG TABCR PO (07:12)
[2020-12-24 07:27] VITALS: BP 152/84; PULSE 84; RESP 17; TEMP 36.5; O2SAT 99
[2020-12-24] MEDS: Acetaminophen 325 MG TAB 650 MG PO ×3 (07:39→21:17)
[2020-12-24] MEDS: Normal Saline Flush 10 ML SYR 20 ML IVP ×2 (07:40→21:26)
--- NOTE | 2020-12-24 08:18 | W.PM.PROGNOT ---
Documented by User: LORENA Cadet 12/24/20 08:23 Date of Service Date of service: 12/24/20 Time of Service: 08:18 Assessment and Plan Assessment and plan (1) Abscess, abdomen: Status: Acute Assessment and plan: s/p IR drainage at [facility] on 12/12; Drains x 3 with seropurulent drainage, output decreasing. s/p IR drainage at [facility] on 12/20. Drain in suprapubic region, and Left gluterus. Output serosanguinous --continue current antibiotics. WIll look out for further C&S from [facility] --OOb and ambulate --pain control--will adjust meds -- Started on clears -- TPN started Unclear etiology of Vaginal discharge. Possibly menstruating, will proceed with watchful waiting. (2) Asthma: Status: Chronic (3) Acute hypokalemia: Status: Acute Assessment and plan: receiving daily oral supplementation (4) Perforated abdominal viscus: Status: Deleted Assessment and plan: Wound vac over midline incision Continue with Wound vac changes M, W, F (5) Smoker: Status: Acute (6) Leukocytosis: Status: Acute Assessment and plan: Wound culture demonstrated Enterobacter. Pt now on Levofloxacin due to sensitivities. Qualifiers: Eosinophilia type: in diseases classified elsewhere (7) Pleural effusion, left: Status: Acute Subjective Subjective Interval history since last seen: patient reports that she is feeling okay today. She reports that she noted some light pink colored vaginal discharge. She states she recently received her Depo shot, and she states that she tends to not menstruate. But she does describe that she feels like it would be that time of the month, b/c she is having breast tenderness, muscle and joint aches. Exam Const General: cooperative and comfortable Orientation: alert and oriented x3 Resp Effort & Inspection: normal respiratory effort, no audible wheezes and no cough GI Palpation: soft, no guarding and nontender Other: Drains in place, soreness around the drain sites. Wound vac in place. Objective Last Vital Signs Temp 36.5 C 12/24/20 07:27 Pulse 84 12/24/20 07:27 Resp 17 12/24/20 07:27 BP 152/84 H 12/24/20 07:27 Pulse Ox 99 12/24/20 07:27 Laboratory Results - last 24 hr 12/24/20 12/24/20 12/24/20 05:45 05:45 05:45 WBC 10.08 RBC 3.24 L Hgb 9.8 L Hct 30.9 L MCV 95.4 H MCH 30.2 MCHC 31.7 L RDW 14.6 Plt Count 442 H MPV 9.9 Immature Gran % 0.4 Neutrophils % 66.7 Lymphocytes % 18.0 Monocytes % 8.3 Eosinophils % 5.8 Basophils % 0.8 Nucleated RBC % 0 Absolute Neutrophils 6.73 H Absolute Lymphocytes 1.81 Absolute Monocytes 0.84 H Absolute Eosinophils 0.58 Absolute Basophils 0.08 Sodium 144 Potassium 3.9 Chloride 110 H Carbon Dioxide 26.9 Anion Gap 7.1 BUN 9 Creatinine 0.7 Estimated GFR/1.73 m2 >= 60.00 Glucose 89 Calcium 8.3 L Phosphorus 2.9 Magnesium 1.8 Total Bilirubin 0.2 AST 29 ALT 68 H Alkaline Phosphatase 89 Total Protein 6.2 L Albumin 2.0 L Documented by User: Moni Marshall MD 12/24/20 08:42 Documented by User: Lauren Beckford DO 12/24/20 15:41 Assessment and Plan Assessment and plan (1) Abscess, abdomen: Status: Acute (2) Perforated gastric ulcer: Status: Acute Assessment and plan: drains from [facility] also grew out yeast that is not sensitive to diflucan -repeat CT on [facility] on Wednesday -has f/u at [facility] on January 03 (3) Open abdominal incision with drainage: Status: Acute Assessment and plan: -stop wound VAC on Wednesday and will just do hydrocolloid gel and Mepilex 8x2.5x.5cm -wean don ally IV didilaudid and start gabepentin and encourage use po pain meds (4) Hypoalbuminemia due to protein-calorie malnutrition: Status: Acute Assessment and plan: -continue protein supplements -no more TPN after today. once TPN is complete- stop POC glucose
--- NOTE | 2020-12-24 09:21 | W.NUTCONSULT ---
Date of service: 12/24/20 Time of Service: 09:22 Nutritional Consult ASSESSMENT: 45 y/o F w/ abdominal Abdominal abscess on ABX , also hx nausea and Abdominal pain. Received consult for TPN rec 12/24. She is currently NPO and on Clinimix 5/15 @ 86ml/hr, TV = 2000ml/day. Provides 250 ml lipids ( 500 k/cals/day @ 31.25 ml/hr)), 300g dextrose ( 1020 k/cals/day), 100 g AA (400 k/jerome/day). Total K/jerome/day= 1920. Total fluids 2000ml. Electrolytes are WNL at this time. Her needs calculated with Amador -St Jeor equation are [id number] k/jerome/day. A quick calculation of 25-30 k/jerome/kg reveals needs of [id number] k/jerome/day. Less caloric requirements are indicated r/t sedentary condition and rapid metabolism via PICC. Current TPN order is appropriate to meet nutritional needs for maintaining weight and fluid. NUTRITIONAL DIAGNOSIS: NPO r/t abdominal pain /recent procedure AEB: on TPN INTERVENTION: See Above MONITORING AND EVALUATION: Continue current TPN as sandor. Check labs for electrolytes, LFT's and adjust rate accordingly if necessary. Clean port ,flush PRN. Time Spent in Nutritional Counseling and Treatment: 0 Minutes face to face
[2020-12-24] MEDS: Normal Saline Flush 10 ML SYR IVP ×4 (11:31→23:18)
[2020-12-24] MEDS: HYDROmorphone 2 MG/ML VIAL IVP ×3 (15:02→23:17)
[2020-12-24 15:37] VITALS: BP 132/74; PULSE 73; RESP 17; TEMP 36.9; O2SAT 96
--- NOTE | 2020-12-24 16:59 | PDOC.CMPRO ---
Care Management Progress Note S/O: Sully was walking the hallways when CM greeted her, no change to overall plan; CM continues to follow. A: Sully is a 45 year old female admitted to [facility] on 12/04/20 with perforated gastric ulcer. P: No change in plan. Anticipate Sully will return home when medically cleared with new orders for VNA RN to support drains, wound/vac management and possible IV ABX (coordination will delay Wednesday discharge if needed). She will follow up with her PCP, surgical services, and her discharge plan of care. She will transport via private vehicle by her s/o, Eric, when ready. CM will continue to follow.
[2020-12-24] MEDS: oxyCODONE 5 MG TAB PO ×2 (17:23→21:17)
[2020-12-24] MEDS: levoFLOXacin 750 MG/150 ML BAG 100 MG IVPB (18:54)
[2020-12-24] MEDS: Gabapentin 300 MG CAP PO (21:17)
[2020-12-24 23:58] VITALS: BP 122/72; PULSE 83; RESP 18; TEMP 36.4; O2SAT 98
[2020-12-25] MEDS: Ketorolac 15 MG/ML VIAL IVP ×4 (00:23→18:19)
[2020-12-25] MEDS: Normal Saline Flush 10 ML SYR IVP ×9 (00:24→20:40)
[2020-12-25] MEDS: Insulin Aspart 300 UNITS/3 ML PEN SC (00:25)
[2020-12-25] MEDS: oxyCODONE 5 MG TAB PO ×4 (04:19→18:19)
[2020-12-25] MEDS: HYDROmorphone 2 MG/ML VIAL IVP ×5 (04:44→20:34)
[2020-12-25 07:03] LABS: Abs Immature Grans 0.04 10^3/uL (0.0-0.06); Absolute Basophil Count 0.12 10^3/uL (0.0-0.2); Absolute Eosinophil Count 0.64 10^3/uL (0.0-0.7); Absolute Lymphocyte Count 1.58 10^3/uL (1.2-3.4); Absolute Monocyte Count 0.79 10^3/uL (0.1-0.8); Absolute Neutrophil Count 8.96 10^3/uL (1.2-6.7); Eosinophils % 5.3; HCT 31.5 % (36.0-46.0); HGB 10.1 g/dL (11.2-15.7); Immature Grans % 0.3; MCH 30.7 pg (27.0-33.0); MCHC 32.1 % (32.0-36.0); MCV 95.7 fL (80-95); MPV 9.9 fL (8.0-11.0); Monocytes % 6.5; Neutrophils % 73.9; Nucleated RBC 0 %; Platelet Count 434 10^3/uL (130-400); RBC 3.29 10^6/uL (3.93-5.22); RDW 14.9 % (11.7-14.6); RDW-SD 51.8 fL; WBC 12.13 10^3/uL (4.4-10.8)
[2020-12-25 07:07] VITALS: BP 146/78; PULSE 87; RESP 18; TEMP 36.8; O2SAT 98
[2020-12-25 07:15] LABS: ALT 61 U/L (14-59); AST 27 U/L (15-37); Albumin 2.2 g/dL (3.4-5.0); Alkaline Phosphatase 92 U/L (46-116); Anion Gap 7.1 mmol/L (3-11); BUN 11 mg/dL (7-18); Bilirubin, Total 0.2 mg/dL (0.2-1.0); CO2 25.9 mmol/L (21.0-32.0); CREATININE 0.8 mg/dL (0.55-1.02); Calcium 8.5 mg/dL (8.5-10.1); Chloride 110 mmol/L (98-107); Glucose 97 mg/dL (74-106); Magnesium 1.8 mg/dL (1.8-2.4); Potassium 3.7 mmol/L (3.5-5.1); Sodium 143 mmol/L (136-145); Total Protein 6.6 g/dL (6.4-8.2)
[2020-12-25] MEDS: Pantoprazole 40 MG TABCR PO (09:17)
[2020-12-25] MEDS: Acetaminophen 325 MG TAB 650 MG PO ×3 (09:17→20:33)
[2020-12-25] MEDS: Normal Saline Flush 10 ML SYR 20 ML IVP ×2 (09:18→20:37)
--- NOTE | 2020-12-25 10:01 | CMPROGNOTE_ITS ---
Care Management Progress Note S/O: Sully was walking the hallways when CM greeted her, no change to overall plan; per provider her diet will continue to be advanced and TPN will remain for at least a few more days. CM continues to follow. A: Sully is a 45 year old female admitted to [facility] on 12/04/20 with perforated gastric ulcer. P: No change in plan. Anticipate Sully will return home when medically cleared with new orders for VNA RN to support drains, wound/vac management and possible IV ABX (coordination will delay Wednesday discharge if needed). She will follow up with her PCP, surgical services, and her discharge plan of care. She will transport via private vehicle by her s/o, Eric, when ready. CM will continue to follow.
--- NOTE | 2020-12-25 15:57 | PGE_ITS ---
Date of Service Date of service: 12/25/20 Time of Service: 15:57 Assessment and Plan Assessment and plan (1) Abscess, abdomen: Status: Acute Assessment and plan: increase Gabapentin to TID (2) Perforated gastric ulcer: Status: Acute Assessment and plan: drains from [facility] [place] also grew out yeast that is not sensitive to diflucan -repeat CT on [facility] on Wednesday -has f/u at [facility] [place] on January 03 (3) Open abdominal incision with drainage: Status: Acute Assessment and plan: -stop wound VAC on Wednesday and will just do hydrocolloid gel and Mepilex 8x2.5x.5cm -wean don ally IV didilaudid and start gabepentin and encourage use po pain meds (4) Hypoalbuminemia due to protein-calorie malnutrition: Status: Acute Assessment and plan: -continue protein supplements -no more TPN after today. once TPN is complete- stop POC glucose Subjective Subjective Interval history since last seen: Sully is doing well.She is tolerating a diet and having soft BM's. She complains of pain in her buttocks were the drain goes in. It is causing nerve type pain. The gabapentin helped her to sleep. Would like her dilauded increased or at least made available [id number] risk of adiction Discussed increasing the Gabapentin Exam Chest Chest: normal inspection of the chest Breast palpation: normal palpation of the breasts Resp Auscultation: clear to auscultation bilaterally Cardio Rate: regular rate Rhythm: regular rhythm GI Palpation: soft and nontender Other: [address] Drain 5 and 6 with purulent discharge Objective Last Vital Signs Temp 98.2 F 12/25/20 07:07 Pulse 87 12/25/20 07:07 Resp 18 12/25/20 07:07 BP 146/78 H 12/25/20 07:07 Pulse Ox 98 12/25/20 07:07 Laboratory Results - last 24 hr 12/25/20 12/25/20 06:35 06:35 WBC 12.13 H RBC 3.29 L Hgb 10.1 L Hct 31.5 L MCV 95.7 H MCH 30.7 MCHC 32.1 RDW 14.9 H Plt Count 434 H MPV 9.9 Immature Gran % 0.3 Neutrophils % 73.9 Lymphocytes % 13.0 Monocytes % 6.5 Eosinophils % 5.3 Basophils % 1.0 Nucleated RBC % 0 Absolute Neutrophils 8.96 H Absolute Lymphocytes 1.58 Absolute Monocytes 0.79 Absolute Eosinophils 0.64 Absolute Basophils 0.12 Sodium 143 Potassium 3.7 Chloride 110 H Carbon Dioxide 25.9 Anion Gap 7.1 BUN 11 Creatinine 0.8 Estimated GFR/1.73 m2 >= 60.00 Glucose 97 Calcium 8.5 Magnesium 1.8 Total Bilirubin 0.2 AST 27 ALT 61 H Alkaline Phosphatase 92 Total Protein 6.6 Albumin 2.2 L
[2020-12-25 16:32] VITALS: BP 147/82; PULSE 88; RESP 18; TEMP 36.6; O2SAT 99
[2020-12-25] MEDS: levoFLOXacin 750 MG/150 ML BAG 100 MG IVPB (18:20)
[2020-12-25] MEDS: Gabapentin 300 MG CAP PO (20:36)
[2020-12-25 23:19] VITALS: BP 163/79; PULSE 84; RESP 17; TEMP 36.3; O2SAT 100
[2020-12-26] MEDS: Ketorolac 15 MG/ML VIAL IVP ×2 (00:30→06:54)
[2020-12-26] MEDS: Normal Saline Flush 10 ML SYR IVP ×13 (00:31→23:38)
[2020-12-26] MEDS: HYDROmorphone 2 MG/ML VIAL IVP ×7 (00:31→23:38)
[2020-12-26 07:52] LABS: Abs Immature Grans 0.03 10^3/uL (0.0-0.06); Absolute Basophil Count 0.13 10^3/uL (0.0-0.2); Absolute Eosinophil Count 0.61 10^3/uL (0.0-0.7); Absolute Lymphocyte Count 2.14 10^3/uL (1.2-3.4); Absolute Monocyte Count 0.66 10^3/uL (0.1-0.8); Absolute Neutrophil Count 6.91 10^3/uL (1.2-6.7); Basophils % 1.2; Eosinophils % 5.8; HCT 35.5 % (36.0-46.0); HGB 11.4 g/dL (11.2-15.7); Immature Grans % 0.3; Lymphocytes % 20.4; MCH 30.3 pg (27.0-33.0); MCHC 32.1 % (32.0-36.0); MCV 94.4 fL (80-95); MPV 10.1 fL (8.0-11.0); Monocytes % 6.3; Nucleated RBC 0 %; Platelet Count 484 10^3/uL (130-400); RBC 3.76 10^6/uL (3.93-5.22); RDW 15.1 % (11.7-14.6); RDW-SD 52.3 fL; WBC 10.48 10^3/uL (4.4-10.8)
[2020-12-26 08:02] LABS: ALT 60 U/L (14-59); AST 26 U/L (15-37); Albumin 2.7 g/dL (3.4-5.0); Alkaline Phosphatase 114 U/L (46-116); BUN 12 mg/dL (7-18); Bilirubin, Total 0.4 mg/dL (0.2-1.0); CREATININE 0.9 mg/dL (0.55-1.02); Calcium 9.1 mg/dL (8.5-10.1); Chloride 107 mmol/L (98-107); Glucose 94 mg/dL (74-106); Magnesium 1.8 mg/dL (1.8-2.4); Potassium 3.6 mmol/L (3.5-5.1); Sodium 140 mmol/L (136-145); Total Protein 7.7 g/dL (6.4-8.2)
[2020-12-26] MEDS: Gabapentin 300 MG CAP PO ×3 (08:19→20:22)
[2020-12-26] MEDS: Acetaminophen 325 MG TAB 650 MG PO ×3 (08:19→20:22)
[2020-12-26] MEDS: oxyCODONE 5 MG TAB PO ×2 (08:19→18:27)
[2020-12-26] MEDS: Pantoprazole 40 MG TABCR PO (08:19)
[2020-12-26] MEDS: Normal Saline Flush 10 ML SYR 20 ML IVP ×2 (08:21→20:22)
[2020-12-26 09:00] VITALS: BP 152/79; PULSE 75; RESP 18; TEMP 36.7; O2SAT 98
[2020-12-26] MEDS: Alteplase 2 MG VIAL IJ (09:24)
[2020-12-26] MEDS: Water,Injection,Sterile 10 ML VIAL (09:24)
--- NOTE | 2020-12-26 10:57 | PDOC.CMPRO ---
- If Service Date Differs Date of service: 12/26/20 Time of Service: 10:57 Care Management Progress Note S/O: Sully was lying in bed when CM met with her. She reported that she is going for a repeat CT scan tomorrow, and may be getting some drains out as well. She also anticipates a potential discharge on Wednesday. She stated that she and her mother in law are learning how to take care of her drains and wound vac from nursing staff. She stated that she is expecting home health as well, but she is becoming more comfortable with the care that she will require at home. CM will continue to follow. A: Sully is a 45 year old female admitted to [facility] on 12/04/20 with perforated gastric ulcer. P: No change in plan. Anticipate Sully will return home when medically cleared with new orders for VNA RN to support drains, wound/vac management and possible IV ABX (coordination will delay Wednesday discharge if needed). She will follow up with her PCP, surgical services, and her discharge plan of care. She will transport via private vehicle by her s/o, Eric, when ready. CM will continue to follow.
[2020-12-26 16:00] VITALS: BP 131/76; PULSE 87; RESP 18; TEMP 36.6; O2SAT 99
[2020-12-26] MEDS: levoFLOXacin 750 MG/150 ML BAG 100 MG IVPB (18:44)
[2020-12-26 20:15] VITALS: BP 146/79; PULSE 85; RESP 16; TEMP 36.4; O2SAT 99
--- NOTE | 2020-12-26 22:52 | W.PM.PROGNOT ---
Date of Service Date of service: 12/26/20 Time of Service: 17:00 Assessment and Plan Assessment and plan (1) Hypoalbuminemia due to protein-calorie malnutrition: Status: Acute (2) Open abdominal incision with drainage: Status: Acute (3) Perforated gastric ulcer: Status: Acute Assessment and plan: Patient is postop day 22 from repair of a gastric ulcer. Her case was complicated by multiple internal abscesses. She has had 5 percutaneous drains placed now. She has minimal drainage. She is on day 2 of micafungin. She should have a 14-day course of this. I am not certain this would be Levaquin she is on. This will need to be calculated. -She has regained control of her bowels and bladder. She no longer has diarrhea and has control over her bowels -She is tolerating regular diet and her albumin is slowly improving. It is up to 2.7 today. -Her white count is down to normal -She has no signs of pneumonia or DVT at this point. -Her incision is healing up nicely. We are going to stop the wound VAC on Wednesday and start her on hydrocolloid wound gel and Mepilex -Continue physical therapy -Continue to wean her off of her narcotics. -Think once we are able to remove posterior drain she will feel much better. This drain is causing a lot of of nerve type pain -Overall I think she has significantly improved with the last set of drains. Repeat CT on Wednesday and hopefully we can continue some of the low drains 30 minutes spent in postop care today (4) Pleural effusion, left: Status: Acute (5) Smoker: Status: Acute (6) Abscess, abdomen: Status: Acute (7) Asthma: Status: Chronic Subjective Subjective Interval history since last seen: Pt is doing well. no headaches. No CP or SOB. no productive cough. no dysuria. no leg pain or swelling. Patient complains of burning from where the left buttock drain. She thinks the gabapentin is helping. She feels more groggy today-actually may be from the gabapentin. She now has control over her bowels and urination. Stools are. Her appetite is slightly back. Drain outputs are minimal. We will plan on repeating a CT tomorrow to see how her fluid collections are doing. Overall she seems to be doing better Exam Resp Effort & Inspection: normal respiratory effort and able to speak in complete sentences Auscultation: clear to auscultation bilaterally Cardio Rate: regular rate Rhythm: regular rhythm GI Other: Soft. Positive bowel sounds. Drain outputs reviewed. Wound was not visualized. Extrem General: no clubbing, cyanosis or edema Objective Last Vital Signs Temp 36.4 C L 12/26/20 20:15 Pulse 85 12/26/20 20:15 Resp 16 12/26/20 20:15 BP 146/79 H 12/26/20 20:15 Pulse Ox 99 12/26/20 20:15 Laboratory Results - last 24 hr 12/26/20 12/26/20 07:35 07:35 WBC 10.48 RBC 3.76 L Hgb 11.4 Hct 35.5 L MCV 94.4 MCH 30.3 MCHC 32.1 RDW 15.1 H Plt Count 484 H MPV 10.1 Immature Gran % 0.3 Neutrophils % 66.0 Lymphocytes % 20.4 Monocytes % 6.3 Eosinophils % 5.8 Basophils % 1.2 Nucleated RBC % 0 Absolute Neutrophils 6.91 H Absolute Lymphocytes 2.14 Absolute Monocytes 0.66 Absolute Eosinophils 0.61 Absolute Basophils 0.13 Sodium 140 Potassium 3.6 Chloride 107 Carbon Dioxide 24.0 Anion Gap 9.0 BUN 12 Creatinine 0.9 Estimated GFR/1.73 m2 >= 60.00 Glucose 94 Calcium 9.1 Magnesium 1.8 Total Bilirubin 0.4 AST 26 ALT 60 H Alkaline Phosphatase 114 Total Protein 7.7 Albumin 2.7 L
[2020-12-26 23:24] VITALS: BP 150/82; PULSE 75; RESP 18; TEMP 36.4; O2SAT 99
[2020-12-27] MEDS: Acetaminophen 325 MG TAB 650 MG PO ×4 (01:56→20:11)
[2020-12-27] MEDS: oxyCODONE 5 MG TAB PO ×3 (01:56→18:26)
[2020-12-27] MEDS: HYDROmorphone 2 MG/ML VIAL IVP ×6 (04:00→23:01)
[2020-12-27] MEDS: Normal Saline Flush 10 ML SYR IVP ×4 (04:01→19:30)
[2020-12-27] MEDS: Breeza Beverage 473 ML BTL PO ×2 (07:07→07:10)
--- NOTE | 2020-12-27 08:00 | DI.CT_ITS ---
Exam(s) CT ABDOMEN PELVIS W EXAM: CT ABDOMEN PELVIS W CLINICAL HISTORY: f/u abscesses drain placements TECHNIQUE: COMPARISON: CT CT ABDOMEN PELVIS W from 12/17/2020 FINDINGS: CT examination of the abdomen and pelvis was performed bolus infusion 85 cc of Omnipaque 350. Examin ation is compared with most recent study December 17. There are multiple percutaneous catheters in place. Images obtained through the lung bases show decreasing bibasilar atelectasis and decreasing left pleu ral effusion since the prior study. Liver and spleen are unremarkable in appearance. Decreased intr a peritoneal fluid. Unremarkable appearance of the pancreas. Small pericholecystic fluid collection again noted. No biliary dilatation. Adrenals and kidneys are unremarkable. Abdominal aorta and major visceral branches appear intact. N o adenopathy identified. No evidence of bowel obstruction at this time. In comparison with the previous examination, the 3 most superiorly located catheters are again noted. Left and right upper abdominal catheters in place show no remaining associated fluid collection. L eft lower quadrant catheter shows marked interval decrease in size of previously noted fluid collecti on, remaining fluid collection now measures about 1 x 2 cm in diameter. In anterior pelvic catheter now drains a previously noted suprapubic abscess. Little if any visible remaining fluid at this site. Posterior pelvic catheter in place drains previously noted cul-de-sac abscess. There is remaining fl uid collection of about 3 x 2 cm at this site. No new abscess formation identified in the abdomen or pelvis. IMPRESSION: Interval decrease in persistent fluid at abscess drainage sites as described above. There is 1 x 2 c m persistent fluid collection associated with left lower quadrant drainage catheter and 3 x 2 cm in d iameter persistent fluid collection associated with cul-de-sac catheter. RADIATION DOSE DELIVERED: 1,066.62mGy.cm Total DLP RADIATION OPTIMIZATION: All CT scans at this facility use at least one of these dose optimization te chniques: automated exposure control; mA and/or kV adjustment per patient size (includes targeted exa ms where dose is matched to clinical indication); or iterative reconstruction.
[2020-12-27] MEDS: Omnipaque 350 MG/ML 100 ML BTL IJ (08:21)
[2020-12-27 08:22] VITALS: BP 154/83; PULSE 79; RESP 18; TEMP 36.8; O2SAT 99
[2020-12-27] MEDS: Normal Saline - Diluent 50 ML VIAL IV (08:22)
[2020-12-27] MEDS: Gabapentin 300 MG CAP PO ×3 (09:27→20:10)
[2020-12-27] MEDS: Pantoprazole 40 MG TABCR PO (09:27)
[2020-12-27] MEDS: Normal Saline Flush 10 ML SYR 20 ML IVP ×2 (09:42→20:11)
--- NOTE | 2020-12-27 12:20 | PDOC.CMPRO ---
Care Management Progress Note S/O: Sully will have a repeat CT scan today, to determine likelihood of additional drain removal. She anticipates a potential discharge on Wednesday; dependent on ABX course. She stated that she and her mother in law are learning how to take care of her drains and wound vac from nursing staff. She stated that she is expecting home health as well, but she is becoming more comfortable with the care that she will require at home. CM will continue to follow. A: Sully is a 45 year old female admitted to [facility] on 12/04/20 with perforated gastric ulcer. P: No change in plan. Anticipate Sully will return home when medically cleared with new orders for VNA RN to support drains, wound/vac management and possible IV ABX; continue to await MD determination. She will follow up with her PCP, surgical services, and her discharge plan of care. She will transport via private vehicle by her s/o, Eric, when ready. CM will continue to follow.
[2020-12-27 13:45] VITALS: BP 137/83; PULSE 80; RESP 18; TEMP 36.5; O2SAT 97
--- NOTE | 2020-12-27 14:35 | NUR.NOTE ---
Per Dr. Beckford, pt was hyperventilating on her arrival to the room. Pt aware of plan to pull carola drains. Pt apparently had a syncopal in the presence of the MD> Vss assessed and were stable. Nursing Note:
--- NOTE | 2020-12-27 15:57 | W.PM.PROGNOT ---
Date of Service Date of service: 12/27/20 Time of Service: 15:57 Assessment and Plan Assessment and plan (1) Hypoalbuminemia due to protein-calorie malnutrition: Status: Acute Assessment and plan: Protein supplementation (2) Open abdominal incision with drainage: Status: Acute Assessment and plan: Stop wound VAC on Wednesday. Will change to just a wound gel with Mepilex (3) Perforated gastric ulcer: Status: Acute Assessment and plan: Daily PPI 3 of 5 of her drains are out DC Levaquin upon 14 days in total of micafungin. She is currently on day 3. Continue high-protein diet Continue supportive care (4) Pleural effusion, left: Status: Acute (5) Smoker: Status: Acute Subjective Subjective Interval history since last seen: Pt is doing well. no headaches. No CP or SOB. no productive cough. no dysuria. no leg pain or swelling. Patient has regained her ability to control her urine and her bowels. Her bowels are formed. She is tolerating a regular diet. She has had no fever and chills. She is up walking around. I removed 3 of her 5 drains today. And left the 2 drains that are in the pelvis. She tolerated this procedure well. Exam Resp Effort & Inspection: normal respiratory effort and able to speak in complete sentences Auscultation: clear to auscultation bilaterally Cardio Rate: regular rate Rhythm: regular rhythm GI Palpation: soft Other: Good bowel sounds. 3 of the drains are removed. She still has 2 drains left in the pelvis. These do still have creamy discharge in them. Her wound VAC is still in place. Skin Other: intact Extrem General: no clubbing, cyanosis or edema Objective Last Vital Signs Temp 36.5 C 12/27/20 13:45 Pulse 80 12/27/20 13:45 Resp 18 12/27/20 13:45 BP 137/83 12/27/20 13:45 Pulse Ox 97 12/27/20 13:45
[2020-12-27 16:17] VITALS: BP 122/70; PULSE 82; RESP 18; TEMP 36.5; O2SAT 99
[2020-12-27] MEDS: levoFLOXacin 750 MG/150 ML BAG 100 MG IVPB (18:25)
[2020-12-28 00:01] VITALS: BP 132/76; PULSE 81; RESP 22; TEMP 36.4; O2SAT 99
[2020-12-28] MEDS: oxyCODONE 5 MG TAB PO ×3 (01:18→11:35)
[2020-12-28] MEDS: HYDROmorphone 2 MG/ML VIAL IVP ×3 (02:14→09:45)
[2020-12-28] MEDS: Acetaminophen 325 MG TAB 650 MG PO ×2 (02:47→08:57)
[2020-12-28] MEDS: Normal Saline Flush 10 ML SYR IVP (06:24)
[2020-12-28 08:55] VITALS: BP 134/80; PULSE 82; RESP 16; TEMP 36.6; O2SAT 96
[2020-12-28] MEDS: Gabapentin 300 MG CAP PO (08:56)
[2020-12-28] MEDS: Pantoprazole 40 MG TABCR PO (08:57)
[2020-12-28] MEDS: Normal Saline Flush 10 ML SYR 20 ML IVP (09:45)
[2020-12-28 09:50] LABS: Abs Immature Grans 0.03 10^3/uL (0.0-0.06); Absolute Basophil Count 0.14 10^3/uL (0.0-0.2); Absolute Eosinophil Count 0.64 10^3/uL (0.0-0.7); Absolute Lymphocyte Count 2.64 10^3/uL (1.2-3.4); Absolute Monocyte Count 0.66 10^3/uL (0.1-0.8); Absolute Neutrophil Count 5.67 10^3/uL (1.2-6.7); Basophils % 1.4; Eosinophils % 6.5; HGB 10.6 g/dL (11.2-15.7); Immature Grans % 0.3; MCH 30.5 pg (27.0-33.0); MCHC 32.1 % (32.0-36.0); MCV 94.8 fL (80-95); MPV 10.3 fL (8.0-11.0); Monocytes % 6.7; Neutrophils % 58.1; Nucleated RBC 0 %; Platelet Count 395 10^3/uL (130-400); RBC 3.48 10^6/uL (3.93-5.22); RDW 14.8 % (11.7-14.6); RDW-SD 50.9 fL; WBC 9.78 10^3/uL (4.4-10.8)
[2020-12-28 09:53] LABS: Anion Gap 9.3 mmol/L (3-11); BUN 10 mg/dL (7-18); CO2 24.7 mmol/L (21.0-32.0); CREATININE 0.8 mg/dL (0.55-1.02); Calcium 9.1 mg/dL (8.5-10.1); Chloride 108 mmol/L (98-107); Glucose 118 mg/dL (74-106); Magnesium 1.8 mg/dL (1.8-2.4); Potassium 3.4 mmol/L (3.5-5.1); Sodium 142 mmol/L (136-145)
--- NOTE | 2020-12-28 09:53 | W.PM.PROGNOT ---
Date of Service Date of service: 12/28/20 Time of Service: 09:53 Assessment and Plan Assessment and plan (1) Hypoalbuminemia due to protein-calorie malnutrition: Status: Acute Assessment and plan: Protein supplementation. Albumin improving (2) Open abdominal incision with drainage: Status: Acute Assessment and plan: Duoderm gel q2-3 days and cover with Mepilex border dressing (3) Perforated gastric ulcer: Status: Acute Assessment and plan: Daily PPI 5 of 7 of her drains are out DC Levaquin upon discharge 14 days in total of micafungin. She is currently on day 4. will set her up with daily outpatient infusions Continue high-protein diet Continue supportive care (4) Pleural effusion, left: Status: Acute (5) Smoker: Status: Acute Subjective Subjective Interval history since last seen: Sully is feeling well. She wants to go home. She is able to care for her drains. She will benefit from Home Health for her wound as well as her drains. She is eating a regular diet and having regular BM. Exam Const General: cooperative, comfortable and no acute distress Orientation: alert and oriented x3 HENMT Head: normocephalic and atraumatic Resp Effort & Inspection: normal respiratory effort Auscultation: clear to auscultation bilaterally Cardio Rate: regular rate Rhythm: regular rhythm GI Palpation: soft, no hepatosplenomegaly and nontender Auscultation: normal bowel sounds Abdomen image: 1. shallow wound with healthy granulation tissue 2. NAVEED with serous fluid 3. Naveed with some purulent and serous discharge Objective Last Vital Signs Temp 97.5 F L 12/28/20 00:01 Pulse 81 12/28/20 00:01 Resp 22 12/28/20 00:01 BP 132/76 12/28/20 00:01 Pulse Ox 99 12/28/20 00:01 Laboratory Results - last 24 hr 12/28/20 09:35 WBC 9.78 RBC 3.48 L Hgb 10.6 L Hct 33.0 L MCV 94.8 MCH 30.5 MCHC 32.1 RDW 14.8 H Plt Count 395 MPV 10.3 Immature Gran % 0.3 Neutrophils % 58.1 Lymphocytes % 27.0 Monocytes % 6.7 Eosinophils % 6.5 Basophils % 1.4 Nucleated RBC % 0 Absolute Neutrophils 5.67 Absolute Lymphocytes 2.64 Absolute Monocytes 0.66 Absolute Eosinophils 0.64 Absolute Basophils 0.14
--- NOTE | 2020-12-28 10:05 | W.PM.DS.N ---
Date of service: 12/28/20 Time of Service: 10:06 DS: Diagnosis Discharge Diagnosis (1) Hypoalbuminemia due to protein-calorie malnutrition: Status: Acute (2) Open abdominal incision with drainage: Status: Acute (3) Perforated gastric ulcer: Status: Acute (4) Pleural effusion, left: Status: Inactive (5) Smoker: Status: Acute Discharge Plan Disposition Patient Disposition: HOME W/HOME HEALTH SERVICE Condition: Improving Discharge Details Reason For Visit: Peforated gastric ulcer Admit Date/Time: 12/04/20 18:37 Admit Provider: Flakito Grijalva Attending Provider: Flakito Grijalva [facility] Course: Mrs. Yu is a 45 year old female who was admitted to the general surgery service with a perforated gastric ulcer on 12/04/20. She underwent emergency laparotomy with repair of perforation. 3 drains were placed at the time of surgery. A wound vac was placed on her midline incision. On 12/08 her WBC count started to increase again. CT scan was done on 12/10/20 and revealed an early abscess adjacent to the jejunum on the left upper quadrant. She went down to [facility] and had 2 drains placed by IR in the LUQ. On 12/16 one of the RUQ drains placed at the time of surgery was removed. On 12/[address] scan because her WBC count was again increasing and she was having lower abdominal pain. This revealed 2 new abscesses in the pelvis. She again was transported to [facility] for drain placements. Cultures revealed fungal infection resistent to fluconazole on / The fluconazole was stopped and she was started on Microfungin 100 mg daily IV. On 12/[address] scan was done which showed resolution of 3 of the 5 abscesses. 3 drains were removed. On 12/28 her WBC had been normal for 48 hours. She was off Levaquin. She was eating a regular diet and having regular BM's. Her wound vac was removed. The wound was healthy and shallow. Dressing were changed to duoderm gel q 2-3 days and cover with mepilex border dressing. Patient was tought to take care of her drains. Patient is discharged home with Homehealth to assist with her drains and midline wound. She will be set up for daily infusions at the hospital for micofungin for 10 days. We will leave the PICC line in place. Home Meds and New Rx's Prescriptions: New gabapentin 300 mg Capsule 300 mg PO TID Qty: 90 RF: 0 pantoprazole 40 mg Tablet,Delayed Release (Dr/Ec) 40 mg PO DAILY@0730 Qty: 30 RF: 3 polyethylene glycol 3350 17 gram Powder In Packet 17 g PO DAILY PRN PRN (Reason: Constipation) Qty: 100 RF: 0 potassium chloride [Klor-Con] 20 mEq Packet 40 meq PO BID Qty: 10 RF: 0 oxycodone-acetaminophen [Percocet] 10-325 mg tablet 1 tab PO Q6H PRN7 Days Qty: 28 RF: 0 Continued medroxyprogesterone 150 MG/ML suspension 1 ml IM PER PROTOCOL RF: 0 ibuprofen 800 MG tablet 800 mg PO Q8H PRN (Reason: Pain) Qty: 15 RF: 0 Discontinued cephalexin 500 mg capsule 500 mg PO BID Qty: 10 RF: 0 Discharge Instructions Additional Instructions: Activity at Home after surgery: 1. Make sure you walk outside at least 4 times per day 2. You should be able to climb a flight of stairs 3. No driving while in pain or taking pain medications 4. No strenuous activity or heavy lifting for 4 weeks (open surgery) Diet, Nutrition, & wound healin. Avoid alcohol until after you are recovered from your surgery 2. Make sure to eat plenty of lean protein (meat, fish, eggs, cottage cheese, beans) 3. Eat a variety of fruits and vegetables. Eat plenty of high fiber foods to avoid constipation. 4. Drink plenty of liquids to stay hydrated and avoid constipation Pain Medications: 1. Ibuprofen 600 mg every 6 hours as needed. 2. If a narcotic has been prescribed take as directed only for breakthrough pain For Constipation: 1. MiraLax as needed for constipation Other: 1. You may shower before your dressing change is due. Do not scrub the incisions 2. Do not soak the incisions until healed 3. You may alternate ice and heat as needed for pain and swelling Wound Care: 1. Keep the incisions clean and dry Other Services that may have been ordered: 0 Home Health- to help with dressing changes and drain care Please call our office if you develop: 1. Fevers >101.5 2. Nausea or Vomiting 3. Worsening pain 4. Redness and thick discharge from the wounds If after hours please call the Hospital at and ask to speak to the on-call surgeon Stand Alone Forms: Nursing Discharge Form Referrals: Moni Marshall MD [ [facility] STAFF PHYSICIAN] - 01/03/21 9:00 am Activity:: see above Equipment/Supplies:: No Equipment Needed Diet:: As Tolerated DS: Summary Time Spent with Patient providing and/or coordinating discharge services: Greater than 30 minutes Status at Discharge Functional status at discharge: independent ambulation Overall status at discharge: patient is progressing back to baseline Mental Status: mental status grossly normal Speech and Movement: speech and movement normal Mood: congruent mood Affect: normal affect Exam Const General: cooperative, comfortable and no acute distress Orientation: alert and oriented x3 HENMT Head: normocephalic and atraumatic Resp Effort & Inspection: normal respiratory effort Auscultation: clear to auscultation bilaterally Cardio Rate: regular rate Rhythm: regular rhythm Heart Sounds: no click, no gallops, no murmurs and no rubs GI Palpation: soft, no hepatosplenomegaly and nontender Auscultation: normal bowel sounds Psych Mental Status: mental status grossly normal Speech and Movement: speech and movement normal Mood: congruent mood Affect: normal affect DS: Data Vitals/I&O Vitals and I&O: Vital Signs Temperature 97.5 F L 12/28/20 00:01 Temperature Source Tympanic 12/28/20 00:01 Pulse 81 12/28/20 00:01 Pulse Rhythm Regular 12/28/20 01:23 Pulse 98 H 12/04/20 12:50 Respiratory Rate 22 12/28/20 00:01 Respiratory Effort Non-Labored 12/28/20 01:23 Respiratory Depth Normal 12/28/20 01:23 Respiratory Pattern Normal 12/28/20 01:23 Blood Pressure 132/76 12/28/20 00:01 Blood Pressure Mean 106 12/04/20 12:40 Blood Pressure Position Sitting 12/04/20 10:13 Pulse Oximetry 99 12/28/20 00:01 Respiratory End-tidal CO2 24 12/04/20 18:22 Oxygen Delivery Method Room Air 12/28/20 00:01 Oxygen Flow Rate 0 12/28/20 00:01 Pain Level 8 12/28/20 09:45 Comment 12/18/20 07:20 Intake & Output 12/27/20 12/27/20 12/28/20 11:59 23:59 11:59 Intake Total 35 / 536 501 / 536 Output Total 550 / 550 Balance -515 / -14 501 / -14 Intake: IV 20 / 270 250 / 270 Oral 240 / 240 Injectate LT LOWER ABDOMEN #1 3 / 6 3 / 6 LT LOWER ABDOMEN #2 3 / 6 3 / 6 LT LOWER ABDOMEN #3 0 / 0 LT Lower Abdomen #6 3 / 8 5 / 8 Left Gluteal #4 3 / 3 Right Lower Abdominal #5 3 / Output: Drainage 50 / 50 LT LOWER ABDOMEN #1 10 / 10 LT LOWER ABDOMEN #2 10 / 10 LT LOWER ABDOMEN #3 5 / 5 LT Lower Abdomen #6 15 / Left Gluteal #4 5 / 5 Right Lower Abdominal #5 5 / 5 Urine 500 / 500 Other: Urine Color Yellow Urine Appearance Clear Clear Clear Urine Odor Strong Comment pT voids independent Stool Size Small Stool Characteristics Liquid Voiding Methods Toilet Toilet Data Completed and Pending Labs on day of discharge: Labs from last 24 hours 12/28/20 12/28/20 09:35 09:35 WBC 9.78 RBC 3.48 L Hgb 10.6 L Hct 33.0 L MCV 94.8 MCH 30.5 MCHC 32.1 RDW 14.8 H Plt Count 395 MPV 10.3 Immature Gran % 0.3 Neutrophils % 58.1 Lymphocytes % 27.0 Monocytes % 6.7 Eosinophils % 6.5 Basophils % 1.4 Nucleated RBC % 0 Absolute Neutrophils 5.67 Absolute Lymphocytes 2.64 Absolute Monocytes 0.66 Absolute Eosinophils 0.64 Absolute Basophils 0.14 Sodium 142 Potassium 3.4 L Chloride 108 H Carbon Dioxide 24.7 Anion Gap 9.3 BUN 10 Creatinine 0.8 Estimated GFR/1.73 m2 >= 60.00 Glucose 118 H Calcium 9.1 Magnesium 1.8 PFSH Medical History (Updated 12/28/20 @ 10:07 by Moni Marshall MD) Asthma Ovarian cyst Pleural effusion, left Vertigo Surgical History (Updated 12/28/20 @ 10:07 by Moni Marshall MD) S/P laparotomy with repair of perforated gastric ulcer Social History Smoking/Tobacco Use Status: Current every day Tobacco Type: cigarettes Smoking risk assessment performed?: Yes Alcohol Intake: never Drug use: Never Do you feel safe at home: Yes Do you feel safe in your relationship?: Yes
--- NOTE | 2020-12-28 10:35 | PDOC.HHF2F_ITS ---
Home Health Certification Home Health Certification: 1. Encounter Date and Reason I certify that Sully Yu was seen by Moni Marshall MD on 12/28/20 and that I had a [id number] encounter with this patient that meets the physician face to face encounter requirements. 2. Clinical Findings Supporting Skilled Need and Homebound Status I certify that home health services are medically necessary, include either intermittent mcc and/or physical/speech therapy, and that this patient is homebound in that absences from the home require considerable and taxing effort and are infrequent or of short duration, or are attributable to the need to receive medical care. [X] (a) Attached documentation from encounter provides clinical findings supporting skilled need and homebound status (including what assistance patient requires to leave the home). The encounter with the patient was in whole, or in part, for the following medical condition, which is the primary reason for home health care: Peforated gastric ulcer Penitentiary: patient with open abdominal wound that needs q 2-3 day changing with duoderm gel covered with mepilex border dressing 2 abdominal drains that need to be flushed with 3-5 cc of NS daily Physical Therapy: none Speech Therapy: none Homebound: Patient is homebound due to open wound and drains esxcept for visitis to the hospital for IV Antibiotics and for DR> visits 3. Certification and Authentication I certify that I composed the above information based on my clinical judgement relating to this patient's medical condition and, if applicable, clinical findings communicated to me by the NPP or inpatient physician who performed the Home Health Referral. All further orders will be obtained through Dr. Cindy Marshall (Community Based Physician - PCP)
--- NOTE | 2020-12-28 13:26 | CMDISCH_ITS ---
LACE Index Scoring Tool - Questions: Length of Stay (in days): 14 or more Acuity (Admit via E.D.?): Yes E.D. Visits: 2 - Answers: Total Score: 12 Risk of Readmission: High Risk Care Management Discharge Reason for Hospitalization: Perforated gastric ulcer Discharge Plan: Sully will discharge home with new orders for VNA RN to support drains, and dressing changes; CM coordinated with Chana at [facility]. She will also have new orders for daily infusions at [facility]. Sully will follow up with her PCP, surgical services, and her discharge plan of care. She will transport via private vehicle with her significant other, Eric. Patient/Family Education Needs: Review discharge instructions, discuss Ask Me Three. Services Needed at Discharge: Home Health Care Services (RN: drains/dressing changes), Infusion Therapy ([facility] outpatient )
== END 2020-12-28 11:56 | disposition home health service (06) | DRG 853 ==
LOC: ER 19:14 → MS 19:18
PROVIDERS: Family Medicine; Physical Therapy Assistant; Surgery; Admitting Provider Surgery; Emergency Provider Registered Nurse Emergency; PCP Internal Medicine; Visit Provider Surgery
PROC: 0DJ04ZZ Inspection of Upper Intestinal Tract, Percutaneous Endoscopic Approach (ICD-10-PCS; CPT 49320; principal; 2020-12-04 13:30)
PROC: 0DJ04ZZ Inspection of Upper Intestinal Tract, Percutaneous Endoscopic Approach (ICD-10-PCS; CPT 49000; 2020-12-04 13:30)
DX: A41.9 Sepsis, unspecified organism (principal); K25.5 Chronic or unspecified gastric ulcer with perforation; K65.1 Peritoneal abscess; J90 Pleural effusion, not elsewhere classified; E46 Unspecified protein-calorie malnutrition; R00.0 Tachycardia, unspecified; F17.210 Nicotine dependence, cigarettes, uncomplicated; Z20.822 Contact with and (suspected) exposure to COVID-19; Z53.31 Laparoscopic surgical procedure converted to open procedure; J45.909 Unspecified asthma, uncomplicated; E87.6 Hypokalemia; D72.18 Eosinophilia in diseases classified elsewhere; B96.89 Other specified bacterial agents as the cause of diseases classified elsewhere
CPT/HCPCS: 49320; 43840; 36410; 36415; 36573; 71275; 80048; 80053; 83690; 85027; 87040; 87077; 87493; 87635; 96361; 96365; 99285; 49406; 71046; 74022; 74160; 74177; 81003; 81015; 81025; 82728; 83540; 83550; 83605; 83735; 84100; 85025; 87070; 87186; 87205; 94640; 99232; 99252; A0425; A0427; A0428; A0429; J0131; J0743; J1050; J1100; J1450; J1644; J1756; J1885; J1956; J2001; J2250; J2405; J2543; J2997; J3475; J3480; J3490; J7613

== ENCOUNTER 2021-01-07 12:00 | Outpatient (RCR) | payer MEDICAID, SELFPAY ==
[2020-12-29] MEDS: Normal Saline Flush 10 ML SYR IVP ×3 (09:54→11:14)
[2020-12-30] MEDS: Normal Saline Flush 10 ML SYR IVP (12:27)
[2020-12-31] MEDS: Normal Saline Flush 10 ML SYR IVP (12:36)
[2021-01-01] MEDS: Normal Saline Flush 10 ML SYR IVP (12:26)
[2021-01-02] MEDS: Normal Saline Flush 10 ML SYR IVP (12:18)
[2021-01-03] MEDS: Normal Saline Flush 10 ML SYR IVP (12:12)
[2021-01-04] MEDS: Normal Saline Flush 10 ML SYR IVP (13:29)
[2021-01-05] MEDS: Normal Saline Flush 10 ML SYR IVP (13:10)
[2021-01-06] MEDS: Normal Saline Flush 10 ML SYR IVP (12:06)
[2021-01-07] MEDS: Normal Saline Flush 10 ML SYR IVP (12:17)
[2021-01-07] MEDS: Bacitracin 1 PACKET (13:10)
== END 2021-01-25 23:59 | disposition home or self-care (01) ==
LOC: INF 12:00
PROVIDERS: PCP Internal Medicine; Visit Provider Surgery
DX: K25.5 Chronic or unspecified gastric ulcer with perforation (principal); T81.31XA Disruption of external operation (surgical) wound, not elsewhere classified, initial encounter; Z45.2 Encounter for adjustment and management of vascular access device
CPT/HCPCS: 36592; 96365